=== PATIENT | female | born 1950 | race Caucasian/White ===

== ENCOUNTER 2020-01-24 15:30 | Outpatient (RCR) | payer MEDICARE, BC, SELFPAY ==
--- NOTE | 2019-12-27 15:06 | HP.PTEVAL ---
Patient's Visit Information ZANE CORDERO is a 69 year old F referred to Physical Therapy by Out of Town Doctor with a diagnosis of Cervical Radiculopathy. Date of Evaluation: 12/27/19 Physical Therapist: LEONCIO Bernabe - Visit Plan Frequency: 2x /Week Duration: 4 Weeks Plan: 2X/ week for 4 weeks for c-spine stretching, strengthening, postural exercises, L RC strengthening with HEP and modalities PRN (may need modalities first few visits to calm inflammation). HEP: mid rows with yellow t-band - Subjective Pt reports that her L arm was bothering her for a long time and her R was causing pain but no pain in the R now. L arm always hurts just depends on min, mod, severe pain. Reaching back to put on her seat belt increases her pain. She has pain and burning to where she points to mid trap and levator and says it is a burning sensation and sometimes it goes into a REZA. She is very careful with her L arm. She has just had an x-ray. 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 She has some tingling in her hand... Usually her pain stops at the elbow. She saw an orthopedic Dr. He said to do PT for 4 weeks and then MRI. She feels weakness in her L arm. She is R handed. - Pain L shoulder pain Pain Intensity (Out of 10): 4 Pain Intensity Range: 6 neck pain Pain Intensity (Out of 10): 3 Pain Intensity Range: 10 - Objective c-spine AROM: flex 100%, ext 75%, Rot B 75%, SB B 75%. UE AROM: pt has full B shoulder AROM but has painful arc on the L approx 120 degrees and then at end range flexion and abd. Her IR and ER AROM on the L is also WFL. R shoulder AROM WFL. Palpation: tender under the L acromion, mid trap and L levator. R handed: R 60# and L 50#. Bicep 2+/3 B. + HK test on the L for pain. + empty can test for pain and weakness on the L. L shld MMT: L shld flex 3-/4, abd 3+/5, ER 3+/5, and IR 4/5. R shld MMT: L shld flex and abd 4-/5, ER and IR 4/5. Posture: sits with rounded shhoulders and protracted scapula B - Goals Goal 1:: I HEP Goal Time Frame: 4-6 Weeks Goal 2:: Increase L shoulder AROM to full AROM into flex and abd with no pain Goal Time Frame: 4-6 Weeks Goal 3:: Sit with upright posture during treatment sessions Goal Time Frame: 4-6 Weeks Goal 4:: Increase L shoulder strength by 1/2 muscle grade on the L (at time of eval: L shld MMT: L shld flex 3-/4, abd 3+/5, ER 3+/5, and IR 4/5). Goal Time Frame: 4-6 Weeks Goal 5:: Increase c-spine AROM to 100% normal ROM (at time of eval: c-spine AROM: flex 100%, ext 75%, Rot B 75%, SB B 75%). Goal 6:: Decrease neck and shoulder pain L by 50% Goal Time Frame: 4-6 Weeks - Rehabilitation Potential Rehabilitation Potential: Good - Anticipated Interventions Patient/Client Instruction: Educate patient on: Condition, Plan of Care For the Purpose of:: To decrease pain, To decrease swelling/inflammation, To increase ROM, To improve nutrient delivery to tissue, To improve muscle performance and motor function, To improve ability to perform ADL's, To increase tolerance to activity/condition/position, To improve performance and independence with ADL's, To decrease level of supervision to perform tasks, To improve ability of physical actions for home/community/work/leisure, To improve health of tissue, To decrease soft tissue restriction Therapeutic Exercise to Include: Strength training, Postural training, Flexibilty training, Passive ROM, Active ROM, Scapular Strength/Stabilization For the Purpose of:: To decrease pain, To increase ROM, To improve nutrient delivery to tissue, To improve muscle performance and motor function, To improve ability to perform ADL's, To increase tolerance to activity/condition/position, To improve performance and independence with ADL's, To improve ability of physical actions for home/community/work/leisure, To improve health of tissue, To decrease soft tissue restriction, To improve endurance Manual Therapy Techniques to Include: Passive ROM, Soft tissue mobilization For the Purpose of:: To decrease pain, To increase ROM, To improve nutrient delivery to tissue IF ES: Yes Cryotherapy (ice pack, ice massage): Yes Thermo therapy (hot pack): Yes Ultrasound (thermal/non thermal): Yes For the Purpose of:: To decrease pain, To increase ROM, To improve nutrient delivery to tissue, To improve muscle performance and motor function, To improve ability to perform ADL's, To increase tolerance to activity/condition/position Thank you for the opportunity to evaluate your patient. For Medicare and Medicare HMO plans, please review the plan of care and approve it. It will need to be FAXED BACK to us at [phone] for Medicare purposes. For Medicare only, by signing this I certify the plan of care. Please let me know if there are questions or concerns regarding this plan of care. Physician Signature: Date:
--- NOTE | 2020-01-24 16:08 | HP.PTDCSUM ---
It has been my pleasure to treat ZANE CORDERO referred by MONICA SHULTZ, with the diagnosis of Cervical Radiculopathy for a total of 9 visit(s). Discharge Date: 01/24/20 Please see the following information for a summary of their discharge status. Subjective: Pt reports that she can not lift a 1/2 gallon of milk and it kills her shoulder. She sees the Dr this . She reports that she was awake every hour last night due to pain. Pain pills did not do anything. L shoulder pain Pain Intensity (Out of 10): 7 neck pain Pain Intensity (Out of 10): 0 L mid trap Pain Intensity (Out of 10): 5 % Improvement: 0 Objective/Function: L shoulder: flexion 80 degrees. Abd 75 degree. ER 55 (uncomfortable). IR PSIS. L shoulder MMT: Shld flexion 3-/5, Shld abd 3+/5, shld ER 3+/5 and IR 4/5. Pt sits with upright posture during treatment sessions. C-spine AROM: flexion 100%, SB B 75%, Rot R 100%, and Rot L 75%. + HK on the L shoulder for pain. + Empty can for pain and weakness on the L. Goal 1:: I HEP Goal Progress: Goal Met Goal 2:: Increase L shoulder AROM to full AROM into flex and abd with no pain Goal Progress: Not Progressing Goal 3:: Sit with upright posture during treatment sessions Goal Progress: Goal Met Goal 4:: Increase L shoulder strength by 1/2 muscle grade on the L (at time of eval: L shld MMT: L shld flex 3-/4, abd 3+/5, ER 3+/5, and IR 4/5). Goal Progress: Not Progressing Goal 5:: Increase c-spine AROM to 100% normal ROM (at time of eval: c-spine AROM: flex 100%, ext 75%, Rot B 75%, SB B 75%). Goal 6:: Decrease neck and shoulder pain L by 50% Goal Progress: Not Progressing Plan: DC PT back to physician for reassessment Discharge Comments: DC PT back to referring Dr If there are questions or concerns regarding this patient's physical therapy, please feel free to call me at [phone]. Thank you for the referral of this patient. Sincerely, Claire Dumont, MPT
== END 2020-01-24 19:00 | disposition home or self-care (01) ==
LOC: PT 15:30
PROVIDERS: PCP Family Medicine
DX: M54.12 Radiculopathy, cervical region (principal)
CPT/HCPCS: 97035; 97110; 97140; 97161; 97530

== ENCOUNTER → 2022-12-20 | Outpatient (CLI) | payer MEDICARE, BC, SELFPAY ==
[2022-12-20 15:18] LABS: Basophil# 0.05 X10^3/uL; Eosinophil# 0.17 X10^3/uL; Eosinophils% 3.3 % (0-5); Hematocrit 42.2 % (37-47); Hemoglobin 12.8 g/dL (12.0-15.0); Lymphocyte % 28.9 % (19-41); Mean Corp Hgb Conc 30.3 g/dL (32-36); Mean Corpuscular Hgb 27.3 pg (27.0-32.0); Mean Platelet Vol. 12.4 fl (6.2-12.0); Monocyte# 0.43 X10^3/uL; Monocyte% 8.3 % (0-10); NRBC Flagged by Analyzer 0 % (0-5); Neutrophil # 3.02 X10^3/uL (2.7-7.7); Neutrophil % 58.1 % (47-70); Platelet Count 173 K/mm3 (150-450); RBC Distribution Width CV 13.6 % (11.6-14.6); RBC Distribution Width SD 44.8 fl (35.1-43.9); Red Blood Count 4.69 M/mm3 (4.2-5.4); White Blood Count 5.2 K/mm3 (4.4-11.0)
[2022-12-20 15:35] LABS: Vitamin D,25 Hydroxy 81.6 ng/mL
[2022-12-20 15:53] LABS: ALB/GLOB Ratio 0.8 RATIO (0.9-2.4); AST(SGOT) 15 U/L (15-37); Alanine Aminotransfer ALT/SGPT 21 U/L (13-56); Alkaline Phosphatase 72 U/L (45-117); Anion Gap 6 (5-15); BUN 10 mg/dL (7-18); BUN/Creat Ratio 13.2 RATIO (10-20); Calcium,Total 8.6 mg/dL (8.5-10.1); Chloride 105 mmol/L (98-107); Cholesterol 143 mg/dL (200); Creatinine, Serum 0.76 mg/dL (0.55-1.02); EST Glomerular Filtration Rate 79 mL/min (>60); Est Glom Filt Rate - Afr Amer 96 mL/min (>60); Globulin 3.7 g/dL (2.2-4.2); Glucose 92 mg/dL (74-106); High Density Lipoprotein 48 mg/dL; Protein, Total 6.7 g/dL (6.4-8.2); Sodium Level 139 mmol/L (136-145); Thyroid Stim Hormone (TSH) 3.02 uIU/mL (0.358-3.74); Triglycerides 99 mg/dL; Very Low Density Lipoprotein 20 mg/dL (5-40)
== END | disposition home or self-care (01) ==
PROVIDERS: PCP Family Medicine; Referring Provider Family Medicine; Visit Provider Family Medicine
DX: I10 Essential (primary) hypertension (principal); E78.00 Pure hypercholesterolemia, unspecified; R79.89 Other specified abnormal findings of blood chemistry
CPT/HCPCS: 36415; 80053; 80061; 82306; 84443; 85025

== ENCOUNTER → 2023-02-27 | Outpatient (CLI) | payer MEDICARE, BC, SELFPAY ==
--- OUTSIDE RECORDS SUMMARY | 2023-02-27 15:19 | XMS RPT_ITS | CCD ---
Author Name Unknown Address [address] [facility] [address] [place] [address] Organization [facility] Care Team Providers Care Canvas Worker Apprentice Name Role Phone PROVIDER, UNKNOWN Unavailable Unavailable Lai, David Unavailable Unavailable ISAC YANEZ Unavailable Unavailable Deng Medley Unavailable Unavailable PROVIDER, UNKNOWN Unavailable Unavailable Lai, David Unavailable Unavailable PROVIDER, UNKNOWN Unavailable Unavailable Lai, David Unavailable Unavailable Deng Medley Unavailable Unavailable Lai, David Attending Unavailable PROVIDER, UNKNOWN Referring Unavailable Lai, David Primary Care Unavailable Lai, David Attending Unavailable PROVIDER, UNKNOWN Referring Unavailable Lai, David Primary Care Unavailable Lai, David Ethan Primary Care Provider [phone] David Hoyt Primary Care Provider David Hoyt MD Primary Care Provider David Hoyt MD Primary Care Provider David Hoyt MD Primary Care Provider David Hoyt MD Primary Care Provider MATHEUS HOYTRELL Primary Care Unavailable LAI, DAVID Attending Unavailable LAI, DAVID Referring Unavailable LAI, DAVID Primary Care Unavailable LAI, DAVID Attending Unavailable LAI, DAVID Referring Unavailable LAI, DAVID Primary Care Unavailable LAI, DAVID Attending Unavailable LAI, DAVID Referring Unavailable LAI, DAVID Primary Care Unavailable LAI, DAVID Attending Unavailable LAI, DAVID Referring Unavailable LAI, DAVID Attending Unavailable LAI, DAVID Referring Unavailable LAI, DAVID Primary Care Unavailable LAI, DAVID Primary Care Unavailable LAI, DAVID Attending Unavailable JOSE EDUARDO BETHEA Attending Unavailable LAI, DAVID Primary Care Unavailable LAI, DAVID Primary Care Unavailable DAVID HOYT Attending Unavailable DAVID HOYT Referring Unavailable DAVID HOYT Primary Care Unavailable DAVID HOYT Attending Unavailable DAVID HOYT Referring Unavailable JOSE EDUARDO BETHEA Referring Unavailable DAVID HOYT Primary Care Unavailable DAVID HOYT Primary Care Unavailable MATHEUS HOYTRELL Attending Unavailable MATHEUS HOYTRELL Referring Unavailable Allergies Allergy Classification Reported Allergen(s) Allergy Type Date of Onset Reaction(s) Facility (20 sources) Erythromycin Drug Allergy 5 [facility]iting, Other [facility]: (9 sources) Penicillins Propensity to adverse reactions to drug 5 [facility] Work Phone: (8 sources) Adhesive Tape Propensity to adverse reactions to drug 0 [place], [place] (19 sources) Penicillins Drug Allergy 5 [facility] (19 sources) Wound Dressing Adhesive Drug Intolerance 0 [facility] Medications Current Medications Medication Drug Class(es) Dates Sig (Normalized) Sig (Original) acyclovir 400 mg oral tablet (1 source) Herpesvirus Nucleoside Analog DNA Polymerase Inhibitor, Herpes Simplex Virus Nucleoside Analog DNA Polymerase Inhibitor, Herpes Zoster Virus Nucleoside Analog DNA Polymerase Inhibitor Start: 12-22-2017 take 1 tablet by mouth twice daily as needed acyclovir (ZOVIRAX) 400 MG tablet Indications: pt takes PRN Take 1 tablet by mouth 2 times daily 21 tablet 1 12/22/2017 Active [id number] 200 actuat albuterol 0.09 mg/actuat metered dose inhaler (18 sources) beta2-Adrenergic Agonist Start: 04-30-2022 End: 04-30-2023 take 2 puff(s) by inhalation every four hours as needed for wheezing albuterol (Proventil HFA) 108 (90 Base) MCG/ACT inhaler Indications: Bronchitis Inhale 2 puffs every 4 hours as needed for wheezing or shortness of breath. 6.7 g 0 04/30/2022 04/30/2023 Active ALPRAZolam 0.25 mg disintegrating oral tablet (1 source) Benzodiazepine Start: 11-30-2019 ALPRAZolam (NIRAVAM) dissolvable tablet 0.25 mg calcium chloride 0.0014 meq/ml / potassium chloride 0.004 meq/ml / sodium chloride 0.103 meq/ml / sodium lactate 0.028 meq/ml injectable solution (1 source) Start: 11-30-2019 lactated ringers infusion dextromethorphan hydrobromide 2 mg/ml / guaiFENesin 20 mg/ml oral suspension (1 source) Uncompetitive B-uwtnoj-T-aspartat e Receptor Antagonist, Sigma-1 Agonist Start: 04-30-2022 End: 05-10-2022 guaiFENesin-dextrom ethorphan (Robitussin DM) 100-10 MG/5ML syrup Indications: Bronchitis Take 5 mL by mouth in the morning and 5 mL at noon and 5 mL in the evening and 5 mL before bedtime. Do all this for 10 days. 200 mL 0 04/30/2022 05/10/2022 Active 1 ml diphenhydrAMINE hydrochloride 50 mg/ml cartridge (1 source) Histamine-1 Receptor Antagonist Start: 11-30-2019 End: 11-30-2019 diphenhydrAMINE (BENADRYL) injection 12.5 mg ergocalciferol 1.25 mg oral capsule (20 sources) Provitamin D2 Compound Start: 01-31-2022 End: 02-04-2023 take 1 capsule by mouth every week ergocalciferol (Vitamin D2) 1.25 MG (02022 UT) capsule TAKE 1 CAPSULE BY MOUTH once a week 8 capsule 3 02/04/2023 Active Completed/Discontinued Medications Medication Drug Class(es) Dates Sig (Normalized) Sig (Original) acetaminophen 500 mg oral tablet (1 source) Start: 11-30-2019 End: 11-30-2019 acetaminophen (TYLENOL) tablet 1,000 mg Problems Active Problems Problem Classification Problem Date Documented Da te Episodic/Chronic Abdominal pain (2 sources) Right upper quadrant pain; Translations: [Right upper quadrant pain] Onset: 01-28-2018 Episodic Disorders of lipid metabolism (20 sources) Hyperlipidemia, unspecified; Translations: [Hyperlipidemia] Onset: 09-21-2014 09-21-2014 Chronic Esophageal disorders (20 sources) Gastro-esophageal reflux disease without esophagitis; Translations: [Gastroesophageal reflux disease] Onset: 09-21-2014 09-21-2014 Chronic Essential hypertension (20 sources) Essential (primary) hypertension; Translations: [Hypertensive disorder] Onset: 09-21-2014 09-21-2014 Chronic Mood disorders (20 sources) Depressive disorder; Translations: [Major depressive disorder, single episode, unspecified] Onset: 09-21-2014 09-21-2014 Chronic Nutritional deficiencies (20 sources) Vitamin D deficiency; Translations: [Vitamin D deficiency, unspecified] Onset: 11-01-2016 11-01-2016 Chronic Osteoarthritis (20 sources) Unspecified osteoarthritis, unspecified site; Translations: [Osteoarthritis] Onset: 09-21-2014 09-21-2014 Chronic Osteoporosis (2 sources) Age-related osteoporosis without current pathological fracture; Translations: [Age-related osteoporosis w/o current pathological fracture] Onset: 03-14-2017 Chronic Other and unspecified benign neoplasm (5 sources) Lipoma of right upper limb; Translations: [Lipoma of right upper extremity] Onset: 10-12-2019 10-12-2019 Other nervous system disorders (2 sources) Other chronic pain; Translations: [Other chronic pain] Onset: 04-30-2022 Chronic Other non-traumatic joint disorders (1 source) Shoulder pain; Translations: [Acute pain of left shoulder] Episodic Other nutritional; endocrine; and metabolic disorders (20 sources) Obese class I; Translations: [Obesity, unspecified] Onset: 09-09-2018 09-18-2018 Chronic Other nutritional; endocrine; and metabolic disorders (6 sources) Obese class I; Translations: [Obesity, Class I, BMI 30-34.9] Onset: 09-09-2018 09-18-2018 Peripheral and visceral atherosclerosis (20 sources) Peripheral vascular disease, unspecified; Translations: [Peripheral vascular disease, unspecified] Onset: 05-03-2021 05-03-2021 Chronic Residual codes; unclassified (20 sources) Obstructive sleep apnea syndrome; Translations: [Obstructive sleep apnea (adult) (pediatric)] Onset: 10-26-2018 01-21-2019 Chronic Residual codes; unclassified (1 source) Menopause present; Translations: [Asymptomatic menopausal state] Episodic Unclassified (1 source) Strain of left trapezius muscle; Translations: [Trapezius muscle strain, left, initial encounter] Unclassified (1 source) Low back pain, unspecified; Translations: [Low back pain, unspecified] Onset: 04-30-2022 Past or Other Problems Problem Classification Problem Date Documented Da te Episodic/Chronic Allergic reactions (4 sources) Allergy status to other antibiotic agents status; Translations: [Allergy status to penicillin] Onset: 03-14-2017 Episodic Cancer of breast (20 sources) Personal history of malignant neoplasm of breast; Translations: [History of malignant neoplasm of breast] Onset: 09-21-2014 09-21-2014 Episodic Cardiac dysrhythmias (20 sources) Palpitations; Translations: [Palpitations] Onset: 09-28-2020 Episodic Chronic obstructive pulmonary disease and bronchiectasis (3 sources) Bronchitis; Translations: [Bronchitis, not specified as acute or chronic] Onset: 04-30-2022 Episodic Diabetes mellitus without complication (20 sources) Prediabetes; Translations: [Prediabetes] Onset: 04-26-2020 04-26-2020 Episodic Immunizations and screening for infectious disease (3 sources) Patient encounter status; Translations: [Encounter for screening for other viral diseases] Onset: 06-12-2022 Episodic Mood disorders (20 sources) Major depressive disorder, single episode, unspecified; Translations: [Mood disorders] Onset: 12-18-2021 Resolved: 06-11-2022 12-18-2021 Nonmalignant breast conditions (20 sources) Pain of breast; Translations: [Mastodynia] Onset: 04-11-2021 04-11-2021 Episodic Nonspecific chest pain (20 sources) Atypical chest pain; Translations: [Other chest pain] Onset: 04-26-2020 04-26-2020 Episodic Other and unspecified benign neoplasm (20 sources) Lipoma of right upper limb; Translations: [Benign lipomatous neoplasm of skin and subcutaneous tissue of right arm] Onset: 10-12-2019 10-12-2019 Episodic Other connective tissue disease (2 sources) Pain in right lower leg; Translations: [Pain in right lower leg] Onset: 03-15-2017 Episodic Other connective tissue disease (20 sources) Muscle pain; Translations: [Myalgia, unspecified site] Onset: 10-18-2020 10-18-2020 Episodic Other connective tissue disease (20 sources) Paraparesis; Translations: [Other symptoms and signs involving the musculoskeletal system] Onset: 04-11-2021 04-11-2021 Episodic Other connective tissue disease (2 sources) Other symptoms and signs involving the musculoskeletal system; Translations: [Other symptoms and signs involving the musculoskeletal system] Onset: 11-25-2021 Episodic Other gastrointestinal disorders (20 sources) Diarrhea; Translations: [Diarrhea, unspecified] Onset: 09-28-2020 09-28-2020 Episodic Other screening for suspected conditions (not mental disorders or infectious disease) (9 sources) Encounter for screening mammogram for malignant neoplasm of breast; Translations: [Abnormal findings on diagnostic imaging of liver and biliary tract] Onset: 01-28-2018 Episodic Other skin disorders (20 sources) Generalized hyperhidrosis; Translations: [Generalized hyperhidrosis] Onset: 09-28-2020 09-28-2020 Episodic Phlebitis; thrombophlebitis and thromboembolism (2 sources) Personal history of other venous thrombosis and embolism; Translations: [Personal history of other venous thrombosis and embolism] Onset: 03-14-2017 Episodic Residual codes; unclassified (2 sources) Asymptomatic menopausal state; Translations: [Asymptomatic menopausal state] Onset: 06-12-2022 Episodic Screening or history of mental health and substance abuse (2 sources) Personal history of nicotine dependence; Translations: [Personal history of nicotine dependence] Onset: 03-14-2017 Episodic Spondylosis; intervertebral disc disorders; other back problems (1 source) Neck pain; Translations: [Neck pain] Episodic Unclassified (2 sources) Acquired absence of both cervix and uterus; Translations: [Acquired absence of both cervix and uterus] Onset: 03-14-2017 Episodic Unclassified (1 source) Low back pain, unspecified; Translations: [Low back pain, unspecified] Onset: 04-30-2022 Viral infection (19 sources) Disease caused by 2019-nCoV; Translations: [COVID-19] Onset: 09-28-2021 Resolved: 12-19-2021 12-19-2021 Episodic Results Test Name Value Interpretation Reference Range Facil ity Vital Signs Date Time Vital Sign Value Performing Clinician Cynthia jasso 06-20-2022 14:00-0400 Body height 167.6 cm David Hoyt MD Work Phone: [id number] 06-20-2022 14:00-0400 Body mass index (BMI) [Ratio] 33.41 kg/m2 David Hoyt MD Work Phone: [email or web address] 06-20-2022 14:00-0400 Body weight 93.89 kg David Hoyt MD Work Phone: [email or web address] 06-12-2022 10:01-0400 Body height 167.6 cm David Hoyt MD Work Phone: [email or web address] 06-12-2022 10:01-0400 Body mass index (BMI) [Ratio] 33.41 kg/m2 aDvid Hoyt MD Work Phone: [email or web address] 06-12-2022 10:01-0400 Body weight 93.89 kg David Hoyt MD Work Phone: [email or web address] 06-12-2022 10:01-0400 Diastolic blood pressure 84 mm[Hg] David Hoyt MD Work Phone: [email or web address] 06-12-2022 10:01-0400 Heart rate 66 /min David Hoyt MD Work Phone: [email or web address] 06-12-2022 10:01-0400 SaO2% (BldA) [Mass fraction] 94 % David Hoyt MD Work Phone: [email or web address] 06-12-2022 10:01-0400 Systolic blood pressure 128 mm[Hg] David Hoyt MD Work Phone: [facility] [employer] 11-30-2019 09:00-0400 Body Temperature 97.39 [degF] [facility] [place] 11-30-2019 09:00-0400 BP Diastolic 67 mm[Hg] [facility] , [place] 11-30-2019 09:00-0400 BP Systolic 118 mm[Hg] [facility] [place] 11-30-2019 09:00-0400 Pulse (Heart Rate) 65 /min [facility] 11-30-2019 09:00-0400 Pulse Oximetry 95 % [facility] , [place] 11-30-2019 09:00-0400 Respiratory Rate 18 /min [facility] 11-30-2019 06:40-0400 BMI (Body Mass Index) 32.45 kg/m2 [facility], [place] 11-30-2019 06:40-0400 Body weight 93.98 kg [facility] , [place] 11-30-2019 06:40-0400 Height 170.2 cm [facility] , [place] 11-24-2019 13:01-0400 BMI (Body Mass Index) 32.79 kg/m2 [facility], [place] 11-24-2019 13:01-0400 Body weight 94.97 kg [facility] , [place] 11-24-2019 13:01-0400 Height 170.2 cm [facility] , [place] 11-24-2019 12:58-0400 Body Temperature 97.59 [degF] [place], [place] 11-24-2019 12:58-0400 BP Diastolic 98 mm[Hg] [facility] , [place] 11-24-2019 12:58-0400 BP Systolic 175 mm[Hg] [facility] , [place] 11-24-2019 12:58-0400 Pulse (Heart Rate) 64 /min [place], [place] 11-24-2019 12:58-0400 Pulse Oximetry 97 % [place], [place] 11-24-2019 12:58-0400 Respiratory Rate 16 /min [place], [place] Encounters Encounter Date Encounter Type Care Provider Facility Start: 02-01-2023 Refill David Hoyt MD Work Phone: [facility] Start: 01-22-2023 Refill Mariemagalys roe RN TELE - CLINICAL REIMBURSEMENT SPECIALIST Work Phone: [facility] Start: 11-25-2022 Refill Marie Pawel roe RN TELE - CLINICAL REIMBURSEMENT SPECIALIST Work Phone: [facility] Start: 10-23-2022 Documentation procedure Nedra Montez PT [facility] Start: 10-23-2022 Refill Marie Armas thal RN TELE - CLINICAL REIMBURSEMENT SPECIALIST Work Phone: [facility] Start: 08-22-2022 End: 08-23-2022 ambulatory DAVID HOYT [facility] Start: 08-22-2022 End: 08-22-2022 Follow-up encounter David Hoyt MD Work Phone: [facility] Procedures Date Procedure Procedure Detail Performing Clinician Start: 06-20-2022 End: 06-20-2022 Screening digital breast tomosynthesis bi David Hoyt MD Work Phone: Start: 06-12-2022 Lipid 1996 panel - S risa or Plasma David Hoyt MD Work Phone: Start: 12-19-2021 Lipid 1996 panel - S risa or Plasma [facility] 3 Start: 05-09-2021 Us breast uni real t barbie with image limited David Hoyt MD Work Phone: Start: 05-09-2021 Diagnostic mammograp hy computer-aided detcj uni David Hoyt MD Work Phone: Start: 04-24-2021 Radex spine lumbosac ral minimum 4 views David Hoyt MD Work Phone: Start: 05-01-2020 Screening mammograph y bi 2-view breast inc cad David Hoyt Work Phone: Start: 05-01-2020 Mammography [facility] 3 Start: 02-07-2020 Mri any jt upper ext remity w/o contrast matrl Varinder Gonzalez Work Phone: Start: 11-30-2019 OPERATIVE REPORT 3m Sca nning Start: 11-24-2019 Basic metabolic pane l calcium total Keven Raudel [place]eropoli Work Phone: Start: 11-24-2019 Blood count complete automated Keven Raudel [place]oli Work Phone: Start: 11-24-2019 Ecg routine ecg w/le ast 12 lds w/i&r Keven Raudel Mukherjee Work Phone: Start: 05-06-2015 Colonoscopy David hewitt MD Work Phone: Plan of Treatment Date Care Activity Detail Author Start: 09-19-2028 DTaP/Tdap/Td vaccine (2 - Td or Tdap) DTaP/Tdap/Td vaccine (2 - Td or Tdap) [facility] Start: 09-19-2028 DTaP/Tdap/Td vaccine (2 - Td) DTaP/Tdap/Td vaccine (2 - Td) [facility] Work Phone: Start: 09-19-2028 DTaP/Tdap/Td Vaccine s (2 - Td or Tdap) DTaP/Tdap/Td Vaccines (2 - Td or Tdap) [facility] Start: 06-13-2027 Lipid panel Lipid Panel [facility] Start: 12-19-2026 Lipid panel Lipid Panel [facility] Start: 06-12-2025 Diabetes mellitus screening Diabetes Screening [facility] Start: 05-05-2025 Colon cancer screen colonoscopy Colon cancer screen colonoscopy [facility] Work Phone: Start: 05-05-2025 Screening for malign ant neoplasm of colon [facility] Start: 07-13-2023 Medicare Annual Well ness (AWV) Medicare Annual Wellness (AWV) [facility] Start: 06-21-2023 Screening for malign ant neoplasm of breast Mammogram [facility] Start: 06-17-2023 End: 06-17-2023 Patient encounter procedure [facility] Start: 12-18-2022 End: 12-18-2022 Patient encounter procedure [facility] Start: 12-12-2022 Depresssion Monitoring Depresssion M onitoring [facility] Start: 10-11-2022 COVID-19 Vaccine () COVID-19 Vaccine () [facility] Start: 10-11-2022 Influenza vaccination Influenza Vacc ine (#1) [facility] Start: 09-05-2022 End: 09-05-2022 ambulatory 09/05/2022 2:00 PM EDT Evaluation [facility] [address] [place] [address] Janae Riggins, PT [facility] Start: 09-02-2022 End: 09-02-2022 Follow-up encounter 09/02/2022 2:00 PM EDT Follow-Up [facility] [address] [place] [address] Claire Gallo, CLOUD ENGINEER [facility] Start: 08-29-2022 End: 08-29-2022 Follow-up encounter 08/29/2022 2:00 PM EDT Follow-Up [facility] [address] [place] [address] Perlita Olguin, PT [facility] Start: 08-26-2022 End: 08-26-2022 Follow-up encounter [facility] Start: 08-22-2022 End: 08-22-2022 Follow-up encounter 08/22/2022 2:00 PM EDT Follow-Up [facility] [address] [place] [address] Xavier Spivey PTA [facility] Start: 08-19-2022 End: 08-19-2022 Follow-up encounter [facility] Start: 08-15-2022 End: 08-15-2022 Follow-up encounter 08/15/2022 5:30 PM EDT Follow-Up [facility] [address] [place] [address] Xavier Spivey PTA [facility] Start: 08-08-2022 End: 08-08-2022 ambulatory [facility] Start: 08-05-2022 End: 08-05-2022 Follow-up encounter [facility] Start: 08-02-2022 End: 08-02-2022 Follow-up encounter [facility] Start: 07-30-2022 End: 07-30-2022 Follow-up encounter [facility] Start: 06-20-2022 End: 06-20-2022 Patient encounter procedure 06/20/2022 Appointment Radiology [facility] Start: 06-12-2022 End: 06-13-2023 25-hydroxyvitamin D3 [Mass/volume] in Serum or Plasma Vitamin D 25 hydroxy Lab Routine Vitamin D deficiency Expected: 06/12/2022 (Approximate), Expires: 06/13/2023 [facility] Immunizations Immunization Date Immunization Notes Care Provider Fa jassi 12-24-2021 Pfizer SARS-CoV-2 Vaccination David Hoyt MD Work Phone: [facility] 11-30-2021 Influenza, High-dose Seasonal, Quadrivalent, Preservative Free [address] 11-30-2021 influenza virus vacc ine, unspecified formulation Xavier Spivey [facility] 01-13-2021 zoster vaccine recombinant David Hoyt MD Work Phone: [facility] Work Phone: 12-09-2020 Influenza, High-dose , Quadv, 65 yrs +, IM (Fluzone) David Hoyt MD Work Phone: [facility] Work Phone: 12-09-2020 Pfizer SARS-CoV-[address] 08-17-2020 zoster vaccine recombinant David Hoyt MD Work Phone: [facility] Work Phone: 05-05-2020 Pfizer SARS-CoV-[address] 04-14-2020 Pfizer SARS-CoV-2 Vaccination David Hoyt MD Work Phone: [facility] 04-07-2020 COVID-19, Pfizer, PF , 30mcg/0.3mL David Hoyt [facility] Work Phone: 12-03-2019 Influenza, High-dose , Quadv, 65 yrs +, IM (Fluzone) [facility] [place] 11-11-2018 influenza, high dose seasonal, preservative-free [facility] 09-19-2018 tetanus toxoid, redu charlee diphtheria toxoid, and acellular pertussis vaccine, adsorbed [facility]: 10-28-2017 influenza, injectabl e, quadrivalent, preservative free [facility] 05-26-2017 pneumococcal polysaccharide vaccine, 23 valent [facility] Work Phone: 11-01-2016 influenza, high dose seasonal, preservative-free [facility] 02-19-2016 pneumococcal conjuga te vaccine, 13 valent [facility] 11-16-2015 influenza virus vacc ine, unspecified formulation [facility] 11-16-2015 influenza virus vacc ine, whole virus [address] 11-12-2013 influenza virus vacc ine, unspecified formulation [facility] Work Phone: 11-12-2013 influenza, seasonal, injectable [address] 2013 pneumococcal Conjuga te, unspecified formulation [facility] Work Phone: 2013 zoster vaccine, live [facility] Work Phone: Payers Date Payer Category Payer Unknown 2017 Unknown [id number] 2014 Medicare 2014 Medicare MEDICARE MEDICAR E PART A AND B xxxxxxxxxxx 2014-Present [phone] [place] [address] xxxxxxxxxxx [id number] 2014 Medicare [id number] 2014 Unknown BC[place] P PO xxxxxxxxx 2014-Present [address] [place] [address] xxxxxxxxx [id number] 1950 Unknown [id number] 1950 Unknown [id number] Social History Date Type Detail Facility Start: 01-21-2019 End: 12-19-2021 Tobacco smoking status [facility] Former smoker [facility] Work Phone: End: 02-18-1991 History of tobacco use Current smoker [facility] Work Phone: Start: 01-21-2019 End: 06-11-2022 Cigarettes smoked current (pack per day) - Reported [facility] Work Phone: Start: 01-21-2019 End: 11-24-2019 Alcohol intake Current non-drinker of alcohol (finding) [employer] Phone: Start: 1950 Sex Assigned At Not on file [facility] [place] Work Phone: End: 02-18-1991 History of tobacco use Cigarette Smoker [facility] [place] Start: 01-27-2020 End: 12-19-2021 Tobacco use and exposure Never used [facility] [place] Start: 01-27-2020 End: 07-10-2022 Alcohol intake Current drinker of alcohol (finding) [facility] [place] Start: 11-24-2019 Alcohol [facility] [place] [place] Start: 03-28-2021 End: 06-12-2022 Exposure to SARS-CoV-2 (event) Not sure [place], [place] Start: 10-18-2020 End: 12-18-2021 History SDOH Financial 5 [facility] Work Phone: Start: 10-18-2020 End: 12-18-2021 History SDOH Food Worry [facility] Start: 10-18-2020 End: 12-18-2021 History SDOH Transport [facility] Work Phone: Start: 06-11-2022 End: 07-10-2022 Tobacco use panel [facility] How hard is it for y ou to pay for the very basics like food, housing, medical care, and heating Not hard at all [facility] (I/We) worried wheth er (my/our) food would run out before (I/we) got money to buy more. Never true [facility] Start: 06-15-2022 Sexual orientation Heterosexual (asia garza) [facility] Goals Date Patient Goal Desired Activity /State Clinical Notes 05-27-2022 to 02-04-2023 Telephone Encounter - JAXON Duran CNP - 02/04/2023 2:50 PM ESTTelephone Encounter - JAXON Duran CNP - 02/04/2023 2:50 PM Roula Montez PT - 10/23/2022 8:15 AM EDT Note Date & Type Note Facility 02-04-2023 Telephone encounter Note Form atting of this note might be different from the original. Reviewed chart. Refill appropriate. RX sent. [facility] 02-04-2023 Miscellaneous Notes Formattin g of this note might be different from the original. Reviewed chart. Refill appropriate. RX sent. Prescription Request: Last medication check: 12/19/21 Last physical exam: 06/12/22 Next scheduled appointment: 06/17/23 Last date of refill on this medication 01/31/22 8 capsules 3 refills documented in this encounter [facility] 02-04-2023 Telephone encounter Note Form atting of this note might be different from the original. Prescription Request: Last medication check: 12/19/21 Last physical exam: 06/12/22 Next scheduled appointment: 06/17/23 Last date of refill on this medication 01/31/22 8 capsules 3 refills [facility] 01-22-2023 Telephone encounter Note Form atting of this note might be different from the original. Reviewed chart. Refill appropriate. RX sent. [facility] 01-22-2023 Miscellaneous Notes Formattin g of this note might be different from the original. Reviewed chart. Refill appropriate. RX sent. Prescription Request: Last medication check: 12/19/21 Last physical exam: 06/12/22 Next scheduled appointment: 06/17/23 Last date of refill on this medication 07/29/22 documented in this encounter [facility] 01-22-2023 Telephone encounter Note Form atting of this note might be different from the original. Prescription Request: Last medication check: 12/19/21 Last physical exam: 06/12/22 Next scheduled appointment: 06/17/23 Last date of refill on this medication 07/29/22 [facility] 11-25-2022 Telephone encounter Note Form atting of this note might be different from the original. Rx sent. Follow up as scheduled. [facility] 11-25-2022 Miscellaneous Notes Formattin g of this note might be different from the original. Rx sent. Follow up as scheduled. Prescription Request: Last medication check: 12/19/21 Last physical exam: 06/12/22 Next scheduled appointment: 12/18/22 Last date of refill on this medication 09/30/22 documented in this encounter [facility] 11-25-2022 Telephone encounter Note Form atting of this note might be different from the original. Prescription Request: Last medication check: 12/19/21 Last physical exam: 06/12/22 Next scheduled appointment: 12/18/22 Last date of refill on this medication 09/30/22 [facility] 10-24-2022 Telephone encounter Note Form atting of this note might be different from the original. Reviewed chart. Refill appropriate. Rx sent. [facility] 10-24-2022 Miscellaneous Notes Formattin g of this note might be different from the original. Reviewed chart. Refill appropriate. Rx sent. Prescription Request: Last medication check: 12/19/21 Last physical exam: 06/12/22 Next scheduled appointment: 12/18/22 Last date of refill on this medication 07/29/22 documented in this encounter [facility] 10-24-2022 Telephone encounter Note Form atting of this note might be different from the original. Prescription Request: Last medication check: 12/19/21 Last physical exam: 06/12/22 Next scheduled appointment: 12/18/22 Last date of refill on this medication 07/29/22 [facility] 10-23-2022 History of Presen t illness Narrative Images from the original note were not included. [facility] AT [address] [id number] Discharge Notification Patient Name: Payton Tabares : 1950 Today's Date: 10/23/2022 Patient has not been seen since 08/22/22. Per policy, this patient will be discharged due to inactive file. Thank you for this referral. For any questions on this patient s course of therapy, please call the clinic for clarification. Nedra Montez, PT Signing for Perlita Olguin PT documented in this encounter [facility] 08-22-2022 History of Presen t illness Narrative Images from the original note were not included. [facility] AT [address] [address] Dept: [phone] Dept PHYSICAL THERAPY TREATMENT Patient Name: Payton Tabares : 1950 Date of Service: 08/22/2022 Referring Provider: David Hoyt, * Diagnosis: Weakness of both lower extremities Reason for referral/Mechanism of injury: Patient reports weakness in both legs that have gotten worse with time. She is having difficulty with getting up and down of the couch and is unable to get up from the floor, has to crawl over to something and use her arms to help her up. Also has to use her arms to help get up from the chair or toilet. Steps are also challenging, requires use of handrails and has to go one step at a time. Balance has also gotten worse over the time. No recent falls reported, however has had a close instant of almost falling. History of back pain as well. States just booked a camping trip and she will be away for 3 weeks tomorrow. Precautions/Red Flags: None Patient Preferences: none e Subjective Pt reports increased back pain that started yesterday, stating the back started spasming with no activity that induced pain. Pt attributes pain to the weather change . Pt reports 8/10 pain in the right thoracic back at this time. Compliance with HEP: Yes Objective Objective measurements not taken today. Treatment Therapeutic Activity # of Activities: 7 Therapeutic Activity 1: Functional strength Activity 1 Comment: STS 1x10 (min. A eccentric focus), (ELECTRICIAN BUS) 4 box step ups with no UE 2x10 leonila; mini squats at rails no UE 2x10 Therapeutic Activity 2: Airex Beam Activity 2 Comment: 3 12 hurdles tandem gait FTS to no UE CGA x4 laps Therapeutic Activity 4: NuStep Activity 4 Comment: lvl 2 UE/LE x5 min Therapeutic Activity 5: Core stability Activity 5 Comment: CC (ELECTRICIAN BUS): rows #25 2x10, SAPD #25 2x10, Seated palloff press YMB x15; seated palloff circles x10 ea YMB Soft Tissue Mobilization Location: R thoracic paraspinals Body Position: Prone Comments: x10 min Assessment Skilled physical therapy interventions utilized to improve patient s impairments and work towards established goals. Patient response to treatment: Pt tolerated session well. Initiated seated core activity at this time with good tolerance. Pt is progressing with balance via performing Airex beam with carey activity with good tolerance and required faded use of UE support with 1UE to FTS at this time. Also initiated STM to the right thoracic paraspinals with noted ST restrictions at this time time. Pt also performed mini-squats afterwards, with min. Verbal and visual cuing for correct form at this time. Pt reports 5/10 pain post-session. Patient will benefit from continued physical therapy to progress towards PT goals. The rationale for today s treatment was explained to the patient. Verbal cues were provided for correct form with all exercises. Advised patient to continue with Home Exercise Program (HEP). Goals General/Ortho Patient will be independent with HEP. (Progressing) Start: 07/10/22 Expected End: 09/18/22 Patient will report decreased max pain at 5/10 in lower back to be able to improve tolerance to transfers. (Progressing) Start: 07/10/22 Expected End: 09/18/22 Patient will increase strength in bilateral hips to 4+/5 or > to be able to improve independence with stairs and transfers. (Progressing) Start: 07/10/22 Expected End: 09/18/22 Balance: Patient will improve SLS to to >5 sec to decrease fall risk. (Progressing) Start: 07/10/22 Expected End: 09/18/22 Functional Outcome Measure: Patient will improve LEFS to 40 or >. (Progressing) Start: 07/10/22 Expected End: 09/18/22 Plan Plan for next session: Progress core and functional balance stability as tolerated. Assess back muscle spasm and pain next visit. MT prn. Time Entry Total Treatment Time Start Time: 1401 Stop Time: 1430 Time Calculation (min): 29 min PT Therapeutic Procedures Time Entry Therapeutic Activity Time Entry: 17 Manual Therapy Time Entry: Xavier Spivey PTA documented in this encounter [facility] 08-15-2022 History of Presen t illness Narrative Images from the original note were not included. [facility] [place] [facility] AT [place] [address] [place] [address] Dept: [phone] Dept PHYSICAL THERAPY TREATMENT Patient Name: Payton Tabares : 1950 Date of Service: 08/15/2022 Referring Provider: David Hoyt, * Diagnosis: Weakness of both lower extremities Reason for referral/Mechanism of injury: Patient reports weakness in both legs that have gotten worse with time. She is having difficulty with getting up and down of the couch and is unable to get up from the floor, has to crawl over to something and use her arms to help her up. Also has to use her arms to help get up from the chair or toilet. Steps are also challenging, requires use of handrails and has to go one step at a time. Balance has also gotten worse over the time. No recent falls reported, however has had a close instant of almost falling. History of back pain as well. States just booked a camping trip and she will be away for 3 weeks tomorrow. Precautions/Red Flags: None Patient Preferences: none Subjective Pt denies pain prior to session. Pt states that she is having the most trouble with STS d/t knee pain. Compliance with HEP: Yes Objective Objective measurements not taken today. Treatment Therapeutic Exercise Therapeutic Exercise Activity 2: NuStep Activity 2 Comment: lvl 3 UE/LE x5 min Therapeutic Exercise Acitivity 3: Core strength Activity 3 Comment: CC: rows #25 2x10, SAPD #25 2x10, (ELECTRICIAN BUS)palloff press #20 x15 ea Therapeutic Activity Therapeutic Activity 1: Functional strength Activity 1 Comment: STS 1x10 (min. A eccentric focus), 4 box step ups with no UE 2x10 leonila Therapeutic Activity 3: Hurdles Activity 3 Comment: Fwd 3x 8 hurdles reiprocal pattern 5 laps, lateral 1x 8 carey x10 reps; 3 12 hurdles x4 laps reciprocal gait no UE Assessment Skilled physical therapy interventions utilized to improve patient s impairments and work towards established goals. Patient response to treatment: Pt tolerated session well and is progressing via increasing carey height with excellent tolerance. Pt demos good SL stability at this time, but demos decreased quad strength for STS at this time. Patient will benefit from continued physical therapy to progress towards PT Goals. The rationale for today s treatment was explained to the patient. Verbal cues were provided for correct form with all exercises. Advised patient to continue with Home Exercise Program (HEP). Goals General/Ortho Patient will be independent with HEP. (Progressing) Start: 07/10/22 Expected End: 09/18/22 Patient will report decreased max pain at 5/10 in lower back to be able to improve tolerance to transfers. (Progressing) Start: 07/10/22 Expected End: 09/18/22 Patient will increase strength in bilateral hips to 4+/5 or > to be able to improve independence with stairs and transfers. (Progressing) Start: 07/10/22 Expected End: 09/18/22 Balance: Patient will improve SLS to to >5 sec to decrease fall risk. (Progressing) Start: 07/10/22 Expected End: 09/18/22 Functional Outcome Measure: Patient will improve LEFS to 40 or >. (Progressing) Start: 07/10/22 Expected End: 09/18/22 Plan Plan for next session: Progress functional balance as tolerated. Time Entry Total Treatment Time Start Time: 1732 Stop Time: 1758 Time Calculation (min): 26 min PT Therapeutic Procedures Time Entry Therapeutic Exercise Time Entry: 10 Therapeutic Activity Time Entry: 15 Xavier Spivey PTA documented in this encounter [facility] 08-08-2022 History of Presen t illness Narrative [facility] [place] [facility] AT [facility] [address] [place] [address] Dept: [phone] Dept PHYSICAL THERAPY RE-EVALUATION Patient Name: Payton Tabares : 1950 Date of Service: 08/08/2022 Referring Provider: David Hoyt, * Diagnosis: Weakness of both lower extremities Reason for referral/Mechanism of injury: Patient reports weakness in both legs that have gotten worse with time. She is having difficulty with getting up and down of the couch and is unable to get up from the floor, has to crawl over to something and use her arms to help her up. Also has to use her arms to help get up from the chair or toilet. Steps are also challenging, requires use of handrails and has to go one step at a time. Balance has also gotten worse over the time. No recent falls reported, however has had a close instant of almost falling. History of back pain as well. States just booked a camping trip and she will be away for 3 weeks tomorrow. Precautions/Red Flags: None Patient Preferences: none Subjective General Comments: Patient reports she has noticed an improvement since starting therapy. It is now easier to get up and down from chairs and she is able to do the stairs 1 foot at a time vs 2 feet to a step. No new falls reported since starting therapy. Pain: Worst: 6-7/10 Outcome Measures LEFS: 41/80 Objective Lower Extremity Strength Right Left Hip Flexion 4/5 4+/5 Hip Abduction 4+/5 4+/5 Hip Extension 4/5 4/5 Hip External Rotation (ER) 5/5 5/5 Hip Internal Rotation (IR) 5/5 5/5 Multi-system balance testin time Dtc-vs-Gsfne (STS): 11.06 seconds - Use of UEs?: yes Balance L SLS: 2 sec (moderate sway) R SLS: 4 sec (moderate sway) Assessment Patient has attended 3 follow up visits since IE, due to being out of town for vacation. Upon reassessment today, she has made excellent progress towards her goals. LE strength has demonstrated good improvements with both MMT and functional goals being met. Still having balance deficiencies and pain in the lower back (however overall has improved since starting therapy). She would benefit from continued PT to address remaining deficits, fall risk and PT goals. Goals Active General/Ortho Patient will be independent with HEP. (Progressing) Start: 07/10/22 Expected End: 09/18/22 Patient will report decreased max pain at 5/10 in lower back to be able to improve tolerance to transfers. (Progressing) Start: 07/10/22 Expected End: 09/18/22 Patient will increase strength in bilateral hips to 4+/5 or > to be able to improve independence with stairs and transfers. (Progressing) Start: 07/10/22 Expected End: 09/18/22 Patient will increase 5x STS (w/ UE) to <12 sec to demo improved functional strength. (Completed) Start: 07/10/22 Expected End: 09/18/22 Resolved: 08/08/22 Balance: Patient will improve SLS to to >5 sec to decrease fall risk. (Not Progressing) Start: 07/10/22 Expected End: 09/18/22 Functional Outcome Measure: Patient will improve LEFS to 40 or >. (Progressing) Start: 07/10/22 Expected End: 09/18/22 Plan Frequency and Duration: 2/wk for 4 weeks Plan for next session: continue with emphasis on balance and core training Risks and benefits were discussed with the patient and/or family, and the patient and/or family participated with the plan of care and agrees. Treatment Therapeutic Activity # of Activities: 6 Therapeutic Activity 6: reassessment of subjective and objective goals, reviewed goals and POC Time Entry Total Treatment Time Start Time: 1405 Stop Time: 1425 Time Calculation (min): 20 min PT Therapeutic Procedures Time Entry Therapeutic Activity Time Entry: 20 Perlita Olguin PT documented in this encounter [facility] 08-05-2022 History of Presen t illness [facility]ative [facility] AT [address] [place] [address] Dept: [phone] Dept PHYSICAL THERAPY TREATMENT Patient Name: Payton Tabares : 1950 Date of Service: 08/05/2022 Referring Provider: David Hoyt, * Diagnosis: Weakness of both lower extremities Reason for referral/Mechanism of injury: Patient reports weakness in both legs that have gotten worse with time. She is having difficulty with getting up and down of the couch and is unable to get up from the floor, has to crawl over to something and use her arms to help her up. Also has to use her arms to help get up from the chair or toilet. Steps are also challenging, requires use of handrails and has to go one step at a time. Balance has also gotten worse over the time. No recent falls reported, however has had a close instant of almost falling. History of back pain as well. States just booked a camping trip and she will be away for 3 weeks tomorrow. Precautions/Red Flags: None Patient Preferences: none Subjective States she felt fine after last session, was not too sore. Just some back pain today, that she states worsens with weather change. Compliance with HEP: Yes Objective Objective measurements not taken today. Treatment Therapeutic Exercise Therapeutic Exercise Activity 2: NuStep Activity 2 Comment: lvl 3 UE/LE x5 min Therapeutic Exercise Acitivity 3: Core strength Activity 3 Comment: CC: rows #20 2x10, SAPD #20 2x10, palloff press #20 x15 ea Therapeutic Activity # of Activities: 3 Therapeutic Activity 1: Functional strength Activity 1 Comment: STS 2x10 from elevated plinth (no UE), 4 box step ups with no UE 1x10 leonila Therapeutic Activity 2: Balance Activity 2 Comment: Airex tandem 1x30 EO leonila; toe taps to 2nd stair on airex 30 x2 Therapeutic Activity 3: Hurdles Activity 3 Comment: Fwd 3x 8 hurdles reiprocal pattern 5 laps, lateral 1x 8 carey x10 reps Assessment Skilled physical therapy interventions utilized to improve patient s impairments and work towards established goals. Patient response to treatment: good tolerance. Able to negotiate hurdles without any UE assist this visit and only mild instability. Challenged with airex balancing due to instability. Progressing well overall demonstrating improved endurance and tolerance to physical activity. Reduced back pain reported at end of session. Patient will benefit from continued physical therapy to address weakness and fall risk. The rationale for today s treatment was explained to the patient. Verbal cues were provided for correct form with all exercises. Advised patient to continue with Home Exercise Program (HEP). Goals General/Ortho Patient will be independent with HEP. (Progressing) Start: 07/10/22 Expected End: 09/18/22 Patient will report decreased max pain at 5/10 in lower back to be able to improve tolerance to transfers. (Progressing) Start: 07/10/22 Expected End: 09/18/22 Patient will increase strength in bilateral hips to 4+/5 or > to be able to improve independence with stairs and transfers. (Progressing) Start: 07/10/22 Expected End: 09/18/22 Patient will increase 5x STS (w/ UE) to <12 sec to demo improved functional strength. (Progressing) Start: 07/10/22 Expected End: 09/18/22 Balance: Patient will improve SLS to to >5 sec to decrease fall risk. (Progressing) Start: 07/10/22 Expected End: 09/18/22 Functional Outcome Measure: Patient will improve LEFS to 40 or >. (Progressing) Start: 07/10/22 Expected End: 09/18/22 Plan Plan for next session: add wobble board balance & progress carey height Time Entry Total Treatment Time Start Time: 1335 Stop Time: 1405 Time Calculation (min): 30 min PT Therapeutic Procedures Time Entry Therapeutic Exercise Time Entry: 15 Therapeutic Activity Time Entry: 15 Perlita Olguin PT documented in this encounter [facility] 08-02-2022 History of Presen t illness Narrative [facility] [place] [facility] AT [place] [address] [place] [address] Dept: [phone] Dept PHYSICAL THERAPY TREATMENT Patient Name: Payton Tabares : 1950 Date of Service: 08/02/2022 Referring Provider: David Hoyt, * Diagnosis: Weakness of both lower extremities Reason for referral/Mechanism of injury: Patient reports weakness in both legs that have gotten worse with time. She is having difficulty with getting up and down of the couch and is unable to get up from the floor, has to crawl over to something and use her arms to help her up. Also has to use her arms to help get up from the chair or toilet. Steps are also challenging, requires use of handrails and has to go one step at a time. Balance has also gotten worse over the time. No recent falls reported, however has had a close instant of almost falling. History of back pain as well. States just booked a camping trip and she will be away for 3 weeks tomorrow. Precautions/Red Flags: None Patient Preferences: none Subjective States she felt good after last session, not too sore. Was not able to do much of her HEP on her camping trip. Compliance with HEP: No Objective Objective measurements not taken today. Treatment Therapeutic Exercise Therapeutic Exercise Activity 2: NuStep Activity 2 Comment: lvl 3 UE/LE x5 min Therapeutic Exercise Acitivity 3: Core strength Activity 3 Comment: CC: rows #20 1x10, SAPD #20 1x10, palloff press #20 1x10 ea Therapeutic Activity # of Activities: 2 Therapeutic Activity 1: Functional strength Activity 1 Comment: STS 2x10 from elevated plinth (no UE), 4 box step ups with no UE 1x10 leonila Therapeutic Activity 2: Balance Activity 2 Comment: Firm surface tandem 2x30 1EO/1EC ea; toe taps to 2nd stair on airex 30 x2 Assessment Skilled physical therapy interventions utilized to improve patient s impairments and work towards established goals. Patient response to treatment: good tolerance. Modified STS to elevated plinth with improved performance and tolerance vs. Chair. Challenged with balance activities this visit, requiring CGA-min assist to maintain stability. Progressing well towards improved LE strength and stability. Discussed importance of performing HEP to help expedite progress in PT now that she is back from vacation. Patient will benefit from continued physical therapy to address weakness and fall risk. The rationale for today s treatment was explained to the patient. Verbal cues were provided for correct form with all exercises. Advised patient to continue with Home Exercise Program (HEP). Goals General/Ortho Patient will be independent with HEP. (Progressing) Start: 07/10/22 Expected End: 09/18/22 Patient will report decreased max pain at 5/10 in lower back to be able to improve tolerance to transfers. (Progressing) Start: 07/10/22 Expected End: 09/18/22 Patient will increase strength in bilateral hips to 4+/5 or > to be able to improve independence with stairs and transfers. (Progressing) Start: 07/10/22 Expected End: 09/18/22 Patient will increase 5x STS (w/ UE) to <12 sec to demo improved functional strength. (Progressing) Start: 07/10/22 Expected End: 09/18/22 Balance: Patient will improve SLS to to >5 sec to decrease fall risk. (Progressing) Start: 07/10/22 Expected End: 09/18/22 Functional Outcome Measure: Patient will improve LEFS to 40 or >. (Progressing) Start: 07/10/22 Expected End: 09/18/22 Plan Plan for next session: continue progressing LE strength and balance activities, add carey negotiation next visit Time Entry Total Treatment Time Start Time: 1301 Stop Time: 1331 Time Calculation (min): 30 min PT Therapeutic Procedures Time Entry Therapeutic Exercise Time Entry: 15 Therapeutic Activity Time Entry: 15 Perlita Olguin PT documented in this encounter [facility] 07-30-2022 History of Presen t illness Narrative Images from the original note were not included. [facility] [place] [facility] AT [place] [address] [place] [address] Dept: [phone] Dept PHYSICAL THERAPY TREATMENT Patient Name: Payton Tabares : 1950 Date of Service: 07/30/2022 Referring Provider: David Hoyt, * Diagnosis: Weakness of both lower extremities Reason for referral/Mechanism of injury: Patient reports weakness in both legs that have gotten worse with time. She is having difficulty with getting up and down of the couch and is unable to get up from the floor, has to crawl over to something and use her arms to help her up. Also has to use her arms to help get up from the chair or toilet. Steps are also challenging, requires use of handrails and has to go one step at a time. Balance has also gotten worse over the time. No recent falls reported, however has had a close instant of almost falling. History of back pain as well. States just booked a camping trip and she will be away for 3 weeks tomorrow. Precautions/Red Flags: None Patient Preferences: none Subjective Pt arrived to session 7 minutes late. Pt reports that she was not able to complete HEP as much as I should due to a medical emergency with my . Compliance with HEP: Yes Objective Objective measurements not taken today. Treatment Therapeutic Exercise # of Activities: 6 Therapeutic Exercise Activity 2: NuStep Activity 2 Comment: lvl 3 UE/LE x5 min Therapeutic Exercise Acitivity 3: LE strength Activity 3 Comment: STS 2x10 (4 reps without UE this visit); 4 box step ups with 1 UE 2x10 ea Therapeutic Exercise Activity 4: Balance Activity 4 Comment: Firm surface tandem 2x30 1EO/1EC ea; NBOS 2x30 1EO/1EC Therapeutic Exercise Activity 5: Core Activity 5 Comment: PPT 2x10; PPT april 2x10 Assessment Skilled physical therapy interventions utilized to improve patient s impairments and work towards established goals. Patient response to treatment: Pt tolerated first follow up session well and is progressing via performing LE strengthening and core stability activities with good tolerance. Min. Tactile and verbal cuing required for proper PPT at this time. Pt was also able to perform 4 STS without UE at this time. Patient will benefit from continued physical therapy to progress towards PT goals. The rationale for today s treatment was explained to the patient. Verbal cues were provided for correct form with all exercises. Advised patient to continue with Home Exercise Program (HEP). Goals General/Ortho Patient will be independent with HEP. (Progressing) Start: 07/10/22 Expected End: 09/18/22 Patient will report decreased max pain at 5/10 in lower back to be able to improve tolerance to transfers. (Progressing) Start: 07/10/22 Expected End: 09/18/22 Patient will increase strength in bilateral hips to 4+/5 or > to be able to improve independence with stairs and transfers. (Progressing) Start: 07/10/22 Expected End: 09/18/22 Patient will increase 5x STS (w/ UE) to <12 sec to demo improved functional strength. (Progressing) Start: 07/10/22 Expected End: 09/18/22 Balance: Patient will improve SLS to to >5 sec to decrease fall risk. (Progressing) Start: 07/10/22 Expected End: 09/18/22 Functional Outcome Measure: Patient will improve LEFS to 40 or >. (Progressing) Start: 07/10/22 Expected End: 09/18/22 Plan Plan for next session: Progress LE stability and strength as tolerated. Time Entry Total Treatment Time Start Time: 1537 Stop Time: 1600 Time Calculation (min): 23 min PT Therapeutic Procedures Time Entry Therapeutic Exercise Time Entry: Xavier Spivey PTA documented in this encounter [facility] 07-29-2022 Telephone encounter Note Form atting of this note might be different from the original. Reviewed chart. Refill appropriate. RX sent. [facility] 07-29-2022 Miscellaneous Notes Formattin g of this note might be different from the original. Reviewed chart. Refill appropriate. RX sent. Prescription Request: Last medication check: 12/19/21 Last physical exam: 06/12/22 Next scheduled appointment: 12/18/22 Last date of refill on this medication 01/31/22 30 day 5 refills documented in this encounter [facility] 07-29-2022 Telephone encounter Note Form atting of this note might be different from the original. Prescription Request: Last medication check: 12/19/21 Last physical exam: 06/12/22 Next scheduled appointment: 12/18/22 Last date of refill on this medication 01/31/22 30 day 5 refills [employer] [facility] 07-10-2022 History of Presen t illness Narrative [facility] [place] [facility] [place] [id number] [place] [address] Dept: [phone] Dept PHYSICAL THERAPY EVALUATION Patient Name: Payton Tabares : 1950 Date of Service: 07/10/2022 Referring Provider: David Hoyt, * Diagnosis: Weakness of both lower extremities General Information Reason for referral/Mechanism of injury: Patient reports weakness in both legs that have gotten worse with time. She is having difficulty with getting up and down of the couch and is unable to get up from the floor, has to crawl over to something and use her arms to help her up. Also has to use her arms to help get up from the chair or toilet. Steps are also challenging, requires use of handrails and has to go one step at a time. Balance has also gotten worse over the time. No recent falls reported, however has had a close instant of almost falling. History of back pain as well. States just booked a camping trip and she will be away for 3 weeks tomorrow. 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 She has no past medical history of Difficult intubation, PONV (postoperative nausea and vomiting), or Prolonged emergence from general anesthesia. PSHX: Payton has a past surgical history that includes Soft Tissue Tumor Resection (Right, 11/30/2019); Colonoscopy (2008); Breast reconstruction (Left, 2016); Colonoscopy; Mastectomy (Left, 08/10/2007); [place] tooth extraction; Cataract extraction w/ intraocular lens implant (Bilateral); Hysterectomy (1989); Tonsillectomy; Oophorectomy (Right, 1989); and Breast reduction (Right, 2016). Have you experienced any anxiety, depression, thoughts of self-harm or suicidal thoughts?: No Physician follow-up appointment?: No Subjective Chief Complaint: leg weakness, decreased balance, mid-lower back pain (hx of compression fx of T12) Pain: Current: 2/10 Best: 1/10 Worst: 10/10 Symptoms Aggravated by: standing, walking, lifting Symptoms Relieved by: swimming, massage Prior Level of Function: reduced limitations Current Level of Function: limitations with transfers (stairs, up and down off the floor, couch, toilet), imbalance Patient s Stated Goal: to get up and down steps normally and be able to get up and down off the floor, help prevent falls Outcome Measures LEFS: Objective LE's & BALANCE Gait Assessment: normal gait mechanics, however bilateral LLE ER evident Stairs: ascend stairs in reciprocal pattern, can perform without UE use, step to step pattern with descend and handrail use Transfers: requires UE use for STS transfers Lower Extremity Strength Right Left Hip Flexion 3+/5 4-/5 Hip Abduction 4/5 4-/5 Hip Extension 3+/5 3+/5 Hip External Rotation (ER) 4+/5 4+/5 Hip Internal Rotation (IR) 5/5 5/5 Knee Extension 5/5 5/5 Knee Flexion 5/5 5/5 Ankle Dorsiflexion (DF) 5/5 5/5 Ankle Plantarflexion (PF) - Single Limb Heel Raise 01/04 01/04 Inversion 5/5 5/5 Eversion 5/5 5/5 Core Strength: fair Flexibility: WFL in bilateral hip flexors and external rotators Multi-system balance testin time [id number] (STS): 17.46 seconds - Use of UEs?: yes (unable to perform without UE use) Balance L SLS: 2 sec (moderate sway) R SLS: 4 sec (moderate sway) Assessment Payton Tabares is a 72 y.o. patient with chief complaint of with bilateral LE weakness and imbalance. Upon assessment she demonstrates bilateral weakness mostly in the hips and PF's. Impaired balance and stability with testing, indicating fall risk. Decreased functional mobility evident with both STS and stair transfers. She also presents with impaired endurance and fatigue with testing today. The patient would benefit from skilled physical therapy to address decreased strength, decreased endurance, impaired balance, pain, and impaired functional activities. Evaluation complexity is low secondary to: patient has 3 or more personal factors and/or comorbidities that will affect plan of care, therapy will be addressing 3 or more elements, and clinical presentation is stable. Body Systems Affected: musculoskeletal Rehab Potential: Good Learning Preferences: demonstration, explanation, performance, and printed materials Barriers to Rehab: age and comorbidities Goals General/Ortho Patient will be independent with HEP. (Initiated) Start: 07/10/22 Expected End: 09/18/22 Patient will report decreased max pain at 5/10 in lower back to be able to improve tolerance to transfers. (Initiated) Start: 07/10/22 Expected End: 09/18/22 Patient will increase strength in bilateral hips to 4+/5 or > to be able to improve independence with stairs and transfers. (Initiated) Start: 07/10/22 Expected End: 09/18/22 Patient will increase 5x STS (w/ UE) to <12 sec to demo improved functional strength. (Initiated) Start: 07/10/22 Expected End: 09/18/22 Balance: Patient will improve SLS to to >5 sec to decrease fall risk. (Initiated) Start: 07/10/22 Expected End: 09/18/22 Functional Outcome Measure: Patient will improve LEFS to 40 or >. (Initiated) Start: 07/10/22 Expected End: 09/18/22 Plan Frequency and Duration: 2/wk for 4-8 weeks Therapeutic Contents: home exercise program, manual therapy techniques, neuromuscular re-education, therapeutic activities, therapeutic exercise, and modalities as needed Plan for next session: Nu-step for warm up, review PPT & ensure proper performance, add PPT w/ LE april if able, initiate functional CKC strengthening (STS from chair w/ UE, fwd step ups on 4 ), balance training (airex NBOS, tandem) Risks and benefits were discussed with the patient and/or family, and the patient and/or family participated with the plan of care and agrees. Treatment Therapeutic Exercise # of Activities: 1 Therapeutic Exercise Activity 1: HEP: SL HR, std hip ext, PPT, bridges, s/l clam (RTB) Activity 1 Comment: provided, reviewed, and performed Time Entry Total Treatment Time Start Time: 1405 Stop Time: 1455 Time Calculation (min): 50 min PT Evaluation Time Entry PT Evaluation (Low) Time Entry: 30 PT Therapeutic Procedures Time Entry Therapeutic Exercise Time Entry: 10 Perlita Olguin, PT documented in this encounter [facility] 06-12-2022 Evaluation + Plan note Associ ated Problem(s): Hyperlipidemia Controlled, continue rosuvastatin 40 mg daily [facility] 06-12-2022 Evaluation + Plan note Associ ated Problem(s): Recurrent major depressive disorder, in full remission (HCC) Remission, continue Prozac 40 mg daily [facility] 06-12-2022 Miscellaneous Notes Associate d Problem(s): Hyperlipidemia Controlled, continue rosuvastatin 40 mg daily Associated Problem(s): Recurrent major depressive disorder, in full remission (HCC) Remission, continue Prozac 40 mg daily Associated Problem(s): Vitamin D deficiency Stable, continue vitamin D 50,000 units weekly Associated Problem(s): Prediabetes Stable, will recheck lab work today and she would like some information on diet and exercise for prediabetes Associated Problem(s): Hypertension Controlled, continue irbesartan 150 mg daily Associated Problem(s): Weakness of both lower extremities We will schedule patient for PT for strengthening and balance, she would prefer to go to [place] so we will set her up at the [facility] documented in this encounter [facility] 06-12-2022 Evaluation + Plan note Associ ated Problem(s): Vitamin D deficiency Stable, continue vitamin D 50,000 units weekly [facility] 06-12-2022 Evaluation + Plan note Associ ated Problem(s): Prediabetes Stable, will recheck lab work today and she would like some information on diet and exercise for prediabetes [facility] 06-12-2022 Evaluation + Plan note Associ ated Problem(s): Hypertension Controlled, continue irbesartan 150 mg daily [facility] 06-12-2022 Evaluation + Plan note Associ ated Problem(s): Weakness of both lower extremities We will schedule patient for PT for strengthening and balance, she would prefer to go to [place] so we will set her up at the [facility] 06-12-2022 History of Presen t illness Narrative Images from the original note were not included. [facility] [address] [place] [address] Visit type: Established Patient Reason for Visit: Medicare Annual Wellness Visit Subsequent, Blood Work, and Health Maintenance (DEXA-wants/COVID #4 had this, will bring card/Hep B vaccine-discuss with PCP/Hep C screen-wants) Assessment and Plan Problem List Items Addressed This Visit Nervous Weakness of both lower extremities We will schedule patient for PT for strengthening and balance, she would prefer to go to [place] so we will set her up at the [facility] Relevant Orders External referral to Physical Therapy Circulatory Hypertension Controlled, continue irbesartan 150 mg daily Endocrine/Metabolic Prediabetes Stable, will recheck lab work today and she would like some information on diet and exercise for prediabetes Relevant Orders Comprehensive metabolic panel Hemoglobin A1c Vitamin D deficiency Stable, continue vitamin D 50,000 units weekly Relevant Orders Vitamin D 25 hydroxy Other Recurrent major depressive disorder, in full remission (HCC) Remission, continue Prozac 40 mg daily Hyperlipidemia Controlled, continue rosuvastatin 40 mg daily Relevant Orders Lipid panel Other Visit Diagnoses Medicare annual wellness visit, subsequent - Primary Menopause Relevant Orders DEXA bone density peripheral Encounter for hepatitis C screening test for low risk patient Relevant Orders Hepatitis C antibody Follow up in about 6 months (around 12/13/2022). Subjective HPI Payton comes in today for her annual Medicare well visit, she currently really has no complaints, she was to be scheduled for her mammogram and that needs to be looked into there was some conflict about her schedule. She needs scheduled for a DEXA scan and she needs fasting lab work. I have reviewed and reconciled the medication list with the patient today. Current Outpatient Medications Medication Sig Dispense Refill albuterol (Proventil HFA) 108 (90 Base) MCG/ACT inhaler Inhale 2 puffs every 4 hours as needed for wheezing or shortness of breath. 6.7 g 0 ergocalciferol (Vitamin D2) 1.25 MG (87268 UT) capsule TAKE 1 CAPSULE BY MOUTH once a week 8 capsule 3 esomeprazole (NexIUM) [address] capsule TAKE 1 CAPSULE BY MOUTH EVERY MORNING before breakfast 30 capsule 5 famotidine (Pepcid) 40 MG tablet TAKE 1 TABLET BY MOUTH IN THE EVENING 30 tablet 1 FLUoxetine (PROzac) 40 MG capsule TAKE 1 CAPSULE BY MOUTH IN THE MORNING 90 capsule 0 irbesartan (Avapro) 150 MG tablet TAKE 1 TABLET BY MOUTH EVERY MORNING 30 tablet 5 rosuvastatin (Crestor) 40 MG tablet TAKE 1 TABLET BY MOUTH IN THE EVENING 30 tablet 1 Sodium Fluoride 5000 PPM 1.1 % paste Use to brush teeth THREE TIMES DAILY DIRECTED triamcinolone (Kenalog) 0.1 % cream Apply topically 2 times daily. No current facility-administered medications for this visit. There are no discontinued medications. List of current healthcare providers: Patient Care Team: David Hoyt MD as PCP - General Over the past 2 weeks, how often have you been bothered by any of the following problems? Trouble falling or staying asleep, or sleeping too much: Not at all Feeling tired or having little energy: Not at all Poor appetite or overeating: More than half the days Feeling bad about yourself - or that you are a failure or have let yourself or your family down: Not at all Trouble concentrating on things, such as reading the newspaper or watching television: Not at all Moving or speaking so slowly that other people could have noticed? Or the opposite - being so fidgety or restless that you have been moving around a lot more than usual.: Not at all Thoughts that you would be better off or hurting yourself in some way: Not at all Patient Health Questionnaire-9 Score: 2 The following health maintenance schedule was reviewed with the patient and provided in printed form in the after visit summary: Health Maintenance Topic Date Due Hepatitis B Vaccines (1 of 3 - 3-dose series) Never done Medicare Annual Wellness (AWV) Never done Bone Density Scan Never done Hepatitis C Screening Never done COVID-19 Vaccine (4 - Booster for Pfizer series) 02/18/2022 Depresssion Monitoring 12/12/2022 Colorectal Cancer Screening 05/05/2025 Lipid Panel 12/19/2026 DTaP/Tdap/Td Vaccines (2 - Td or Tdap) 09/19/2028 Influenza Vaccine Completed Pneumococcal Vaccine: 65+ Years Completed Zoster Vaccines Completed HIB Vaccines Aged Out IPV Vaccines Aged Out Hepatitis A Vaccines Aged Out Meningococcal Vaccine Aged Out Rotavirus Vaccines Aged Out HPV Vaccines Aged Out Orders Placed This Encounter Procedures DEXA bone density peripheral Standing Status: Future Standing Expiration Date: 06/12/2023 Lipid panel Standing Status: Future Number of Occurrences: 1 Standing Expiration Date: 06/12/2023 Comprehensive metabolic panel Standing Status: Future Number of Occurrences: 1 Standing Expiration Date: 06/12/2023 Hepatitis C antibody Standing Status: Future Number of Occurrences: 1 Standing Expiration Date: 06/12/2023 Vitamin D 25 hydroxy Standing Status: Future Number of Occurrences: 1 Standing Expiration Date: 06/13/2023 Hemoglobin A1c Standing Status: Future Number of Occurrences: 1 Standing Expiration Date: 06/13/2023 External referral to Physical Therapy Standing Status: Future Standing Expiration Date: 06/13/2023 Referral Priority: Routine Referral Type: Therapy Referral Reason: Eval and Treat Requested Specialty: Physical Therapy Number of Visits Requested: 1 Health Risk Assessment: General In general, how would you say your health is?: Fair In the past 7 days, have you experienced any of the following: New or Increased Pain, New or Increased Fatigue, Loneliness, Social Isolation, Stress or Anger?: (!) Yes Select all that apply: New or Increased Fatigue Do you get the social and emotional suppport you need?: Yes Interventions: Fatigue: Regular exercise recommended 3-5 times per week, 30-45 minutes per session Health Habits / Nutrition On average, how many days per week do you engage in moderate to strenous exercise (like a brisk walk)?: (!) 0 days On average, how man minutes do you engage in exercise at this level?: (!) 0 min Have you lost any weight without trying in the past 3 months? : No Have you seen the dentist within the past year?: Yes Interventions: Hearing / Vision Do you or your family notice any trouble with your hearing that hasn't been managed with hearing aids?: (!) Yes Do you have difficulty driving, watching TV, or doing any of your daily activities because of your eyesight?: No Have you had an eye exam within the past year?: Appointment is scheduled No results found. Interventions: Safety Do you have a working smoke detector?: Yes Do you have any tripping hazards - loose or unsecured carpets or rugs?: No Do you have any tripping hazards - clutter in doorways, halls, or stairs?: No Do you have either shower bars, grab bars, non-slip mats or non-slip surfaces in your shower or bathtub? : (!) No Do all your stairways have a railing or banister? : Yes Do you fasten your seatbelt when you are in a car?: Yes Interventions: ADL In the past 7 days, did you need help from others to perform any of the following everyday activities: Eating, dressing, grooming,bathing, toileting, or walking / balance? : No In the past 7 days, did you need help from others to take care of any of the following: laundry, housekeeping, banking / finances,shopping, telephone use, food preparation, transportation, or taking medications? : No Interventions: Living Will Do you have a living will?: Yes Interventions: Cognitive: Cognitive Screening: Mini-Cog Clock Drawing Test (CDT): 2 Words Recalled: 3 Total Score: 5 Total Score Interpretation: Normal Mini-Cog Interventions: Fall Risk: Interventions: No falls Depression Screening: Over the past 2 weeks, how often have you been bothered by any of the following problems? Little interest or pleasure in doing things: Not at all Feeling down, depressed, or hopeless: Not at all Patient Health Questionnaire-2 Score: 0 Over the past 2 weeks, how often have you been bothered by any of the following problems? Trouble falling or staying asleep, or sleeping too much: Not at all Feeling tired or having little energy: Not at all Poor appetite or overeating: More than half the days Feeling bad about yourself - or that you are a failure or have let yourself or your family down: Not at all Trouble concentrating on things, such as reading the newspaper or watching television: Not at all Moving or speaking so slowly that other people could have noticed? Or the opposite - being so fidgety or restless that you have been moving around a lot more than usual.: Not at all Thoughts that you would be better off or hurting yourself in some way: Not at all Patient Health Questionnaire-9 Score: 2 If you checked off any problems on this questionnaire so far, How difficult have these problems made it for you to do your work, take care of things at home, or get along with other people?: Somewhat difficult Interventions: Tobacco Use: Social History Tobacco Use Smoking Status Former Packs/day: 1.00 Types: Cigarettes Quit date: 02/18/1991 Years since quittin.3 Smokeless Tobacco Never Interventions: Alcohol Use: Interventions: Drug Use: Interventions: Review of Systems Constitutional: Negative for chills and fever. Respiratory: Negative for shortness of breath. Cardiovascular: Negative for chest pain and palpitations. Gastrointestinal: Negative for abdominal pain, blood in stool, constipation and diarrhea. Genitourinary: Negative for dysuria, frequency, hematuria and urgency. Neurological: Negative for weakness and numbness. Psychiatric/Behavioral: Negative for dysphoric mood. The patient is not nervous/anxious. Immunization History Administered Date(s) Administered Influenza Whole 11/16/2015 Influenza, High Dose Seasonal, Preservative Free 11/01/2016, 11/11/2018 Influenza, High-dose Seasonal, Quadrivalent, Preservative Free 12/03/2019, 12/09/2020, 11/30/2021 Influenza, Unspecified 11/12/2013, 11/16/2015 Influenza, injectable, quadrivalent, preservative free 10/28/2017 Influenza, seasonal, injectable 11/12/2013 Pfizer SARS-CoV-2 Vaccination 04/14/2020, 12/09/2020, 12/24/2021 Pneumococcal Conjugate PCV 13 02/19/2016 Pneumococcal Conjugate, Unspecified 2013 Pneumococcal Polysaccharide PPSV23 05/26/2017 Tdap 09/19/2018 Zoster, Recombinant 08/17/2020, 01/13/2021 Zoster, live 2013 Allergies Allergen Reactions Penicillins Hives Erythromycin Nausea And Vomiting and Other Wound Dressing Adhesive Rash Outpatient Medications Prior to Visit Medication Sig Dispense Refill albuterol (Proventil HFA) 108 (90 Base) MCG/ACT inhaler Inhale 2 puffs every 4 hours as needed for wheezing or shortness of breath. 6.7 g 0 ergocalciferol (Vitamin D2) 1.25 MG (06294 UT) capsule TAKE 1 CAPSULE BY MOUTH once a week 8 capsule 3 esomeprazole (NexIUM) [address] capsule TAKE 1 CAPSULE BY MOUTH EVERY MORNING before breakfast 30 capsule 5 famotidine (Pepcid) 40 MG tablet TAKE 1 TABLET BY MOUTH IN THE EVENING 30 tablet 1 FLUoxetine (PROzac) 40 MG capsule TAKE 1 CAPSULE BY MOUTH IN THE MORNING 90 capsule 0 irbesartan (Avapro) 150 MG tablet TAKE 1 TABLET BY MOUTH EVERY MORNING 30 tablet 5 rosuvastatin (Crestor) 40 MG tablet TAKE 1 TABLET BY MOUTH IN THE EVENING 30 tablet 1 Sodium Fluoride 5000 PPM 1.1 % paste Use to brush teeth THREE TIMES DAILY DIRECTED triamcinolone (Kenalog) 0.1 % cream Apply topically 2 times daily. No facility-administered medications prior to visit. Past Medical History: Diagnosis Date Anxiety Depression GERD (gastroesophageal reflux disease) H/O exercise stress test History of breast cancer 2007 Dr Moy, Dr Conner Hx of blood clots 1982, Left leg Hyperlipidemia Hypertension ELIZA on CPAP Osteoarthritis Osteoporosis Soft tissue mass NEAR THE RIGHT UPPER EXTREMITY ; SCHEDUL[facility] FOR THE SURGERY ON 11/[facility] Social History Socioeconomic History Marital status: Tobacco Use Smoking status: Former Packs/day: 1.00 Types: Cigarettes Quit date: 02/18/1991 Years since quittin.3 Smokeless tobacco: Never Substance and Sexual Activity Alcohol use: Yes Alcohol/week: 0.0 standard drinks Drug use: No Social History Narrative 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 [employer], Social Determinants of Health Financial Resource Strain: Low Risk Difficulty of Paying Living Expenses: Not hard at all Food Insecurity: No Food Insecurity Worried About Running Out of Food in the Last Year: Never true Ran Out of Food in the Last Year: Never true Transportation Needs: No Transportation Needs Lack of Transportation (Medical): No Lack of Transportation (Non-Medical): No Past Surgical History: Procedure Laterality Date BREAST RECONSTRUCTION Left 08/2016 CATARACT EXTRACTION W/ INTRAOCULAR LENS IMPLANT Bilateral COLONOSCOPY 2009 COLONOSCOPY HYSTERECTOMY 1990 Fibroids, still has left ovary MASTECTOMY Left 2008 SOFT TISSUE TUMOR RESECTION Right 11/30/2019 TONSILLECTOMY (HISTORICAL) and Adenoidectomy WISDOM TOOTH EXTRACTION Past Surgical History: Procedure Laterality Date BREAST RECONSTRUCTION Left 08/2016 CATARACT EXTRACTION W/ INTRAOCULAR LENS IMPLANT Bilateral COLONOSCOPY 2009 COLONOSCOPY HYSTERECTOMY 1990 Fibroids, still has left ovary MASTECTOMY Left 2008 SOFT TISSUE TUMOR RESECTION Right 11/30/2019 TONSILLECTOMY (HISTORICAL) and Adenoidectomy WISDOM TOOTH EXTRACTION Family History Problem Relation Name Age of Onset Stroke Mother No Known Problems Father Heart disease Mother Substance Abuse Brother alcohol Cancer Mother jaw bone, thinks maybe lung Cancer Brother skin Objective BP 128/84 Pulse 66 Ht 5' 6 (1.676 m) Wt 207 lb (93.9 kg) SpO2 94% BMI 33.41 kg/m Physical Exam Vitals and nursing note reviewed. Constitutional: General: She is not in acute distress. Appearance: Normal appearance. HENT: Head: Normocephalic. Right Ear: Tympanic membrane, ear canal and external ear normal. Left Ear: Tympanic membrane, ear canal and external ear normal. Mouth/Throat: Mouth: Mucous membranes are moist. Pharynx: Oropharynx is clear. Eyes: Extraocular Movements: Extraocular movements intact. Pupils: Pupils are equal, round, and reactive to light. Neck: Vascular: No carotid bruit. Cardiovascular: Rate and Rhythm: Normal rate and regular rhythm. Heart sounds: Normal heart sounds. No murmur heard. Pulmonary: Effort: Pulmonary effort is normal. Breath sounds: Normal breath sounds. Abdominal: General: Bowel sounds are normal. Palpations: Abdomen is soft. Musculoskeletal: General: Normal range of motion. Cervical back: Normal range of motion. Lymphadenopathy: Cervical: No cervical adenopathy. Skin: General: Skin is warm and dry. Neurological: General: No focal deficit present. Mental Status: She is alert and oriented to person, place, and time. Psychiatric: Mood and Affect: Mood normal. Data Reviewed Labs: Imaging/Testing: David Hoyt MD 06/12/2022 11:06 AM documented in this encounter [facility] 05-27-2022 Telephone encounter Note Form atting of this note might be different from the original. Reviewed chart. Refill appropriate. Rx sent. [facility] 05-27-2022 Miscellaneous Notes Formattin g of this note might be different from the original. Reviewed chart. Refill appropriate. Rx sent. Prescription Request: Last medication check: 12/19/21 Last physical exam: 10/18/20 Next scheduled appointment: none CSA on file (date): na Last urine drug screen: na Last date of refill on this medication 12/17/21 documented in this encounter [facility] 05-27-2022 Telephone encounter Note Form atting of this note might be different from the original. Prescription Request: Last medication check: 12/19/21 Last physical exam: 10/18/20 Next scheduled appointment: none CSA on file (date): na Last urine drug screen: na Last date of refill on this medication 12/17/21 [facility] documented in this encounter [facility] Work Phone: Evaluation note* Diagnosis Mastalgia Mastodynia Atherosclerosis of aorta (HCC) Atherosclerosis of aorta Peripheral vascular disease, unspecified (HCC) Peripheral vascular disease, unspecified documented in this encounter [facility] Work Phone: Evaluation note* Diagnosis Bronchitis Bronchitis, not specified as acute or chronic documented in this encounter [facility]* Diagnosis Medicare annual wellness visit, subsequent- Primary Weakness of both lower extremities Primary hypertension Unspecified essential hypertension Prediabetes Other abnormal glucose Vitamin D deficiency Recurrent major depressive disorder, in full remission (HCC) Pure hypercholesterolemia Menopause Symptomatic menopausal or female climacteric states Encounter for hepatitis C screening test for low risk patient documented in this encounter [facility]* Diagnosis Encounter for screening mammogram for malignant neoplasm of breast documented in this encounter [facility]* Diagnosis Weakness of both lower extremities documented in this encounter [facility]* Diagnosis Encounter for screening mammogram for malignant neoplasm of breast- Primary documented in this encounter [facility]* Diagnosis Weakness of both lower extremities- Primary documented in this encounter [facility]* Diagnosis Weakness of both lower extremities- Primary documented in this encounter [facility]* Diagnosis Weakness of both lower extremities- Primary [facility] Diagnosis Weakness of both lower extremities- Primary documented in this encounter [facility]* Diagnosis Weakness of both lower extremities- Primary documented in this encounter [facility]* Diagnosis Weakness of both lower extremities- Primary documented in this encounter [facility] Summary Purpose Family History No Family History Records FoundNo Family History Records FoundNo Family History Records FoundNo Family History Records FoundNo Family History Records FoundNo Family History Records FoundNo Family History Records FoundNo Family History Records Found Advance Directives No Advanced Directives Records FoundDocuments on File Type Date Recorded 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 Advance Directives and Living Will Power of Lime Supervisor Documents on File Type Date Recorded 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 ACP-Advance Directive ACP-Power of Lime Supervisor Latest Code Status on File Code Status Date Activated Date Inactivated Comments Full Code 11/30/2019 6:17 AM 11/30/2019 11:34 AM Documents on File Type Date Recorded 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 ACP-Advance Directive ACP-Power of Lime Supervisor Latest Code Status on File Code Status Date Activated Date Inactivated Comments Full Code 11/30/2019 6:17 AM 11/30/2019 11:34 AM Latest Code Status on File Code Status Date Activated Date Inactivated Comments Full Code 11/30/2019 6:17 AM Reason for Referral Status Reason Specialty Diagnoses / Procedures Referre d By Contact Referred To Contact Closed Radiology Diagnoses Acute pain of left shoulder Procedures MRI SHOULDER LEFT WO CONTRAST Varinder Gonzalez MD [address] [facility] [address] [place] [address] Status Reason Specialty Diagnoses / Procedures Referre d By Contact Referred To Contact Open Radiology Diagnoses Palpitation Procedures Cardiac event monitor David Hoyt MD [address] [place] [address] Specialty Diagnoses / Procedures Referred By Contac t Referred To Contact Radiology Diagnoses Mastalgia Procedures US Breast Limited Right David Hoyt MD [address] [place] [address] Referral ID Status Reason Start Date Expiration Date Visits Re quested Visits Authorized [id number] Open 05/09/2021 05/09/2022 1 1 Specialty Diagnoses / Procedures Referred By Contac t Referred To Contact Physical Therapy Diagnoses Weakness of both lower extremities Procedures [place] OFFICE/OUTPATIENT NEW HIGH MDM 60-74 MINUTES David Hoyt MD [address] [place] [address] Referral ID Status Reason Start Date Expiration Date Visits Requested Visits Authorized [id number] Authorized Eval and Treat 06/12/2022 12/09/2022 99 99 Scheduling Instructions [facility] Eval and treat for strength and balance Assessments Diagnosis Acute pain of left shoulder Diagnosis Neck pain Cervicalgia Trapezius muscle strain, left, initial encounter Discharge Instructions * Instructions* Juan Naranjo MD - 11/30/2019 DISCHARGE INSTRUCTIONS Thank you very much for allowing me to participate in your care, it is truly a privilege. Below please see discharge orders that will help you during your recovery. Please do not hesitate to call theoffice at [phone] for any questions. After hours, the same number will allow you to reach the on-call surgeon. ? Call the office to schedule your post-operative appointment with Dr. Naranjo or PA/ELECTRICIAN BUS for 2 weeks if not already scheduled. o (May need to be seen before 2 weeks if stitches and/or drains present) ? Change bandages daily or more frequently if needed. o Keep incisions clean with soap/ water daily. (Peroxide OK as well) o Cover incision(s) as needed. o Please remove the Steri-Strips 5 days after surgery. This includes any clear bandages and gauze placed in the navel, if applicable. o If you have skin glue this will come off on its own ? Diet: Regular ? General guidelines for activity: activity as tolerated o OK to shower in 24 hours ? Tylenol and Ibuprofen can be used for post-operative pain. Please take as directed/needed. ? Some discomfort, mild bruising, and swelling are not unusual; please call my office if you have any severe pain, hemorrhage, or high fever (over 101 F) ? Resume home medications as directed (see medication reconciliation sheet) ? Watch for signs of infection: Excessive warmth or bright redness around your incisions Leakage of bloody or cloudy fluid from you incisions Fever over 100.5 ? If you experience constipation o Increase your water intake. o Increase your activity; walking is best. o An over the counter stool softener or mild laxative may be necessary if you still have not had a bowel movement after several days. Please call the office at [phone] for any questions and too make your post op appointment if needed. Thank you again for allowing me to participate in your care, and get well soon! Juan Naranjo MD documented in this encounter* Instructions* Geovanna Vergara, MARIA C - 11/24/2019 PLEASE BE AWARE THAT VISITORS UNDER THE AGE OF 12 AND FOOD/DRINKS ARE NO LONGER PERMITTED IN THE SAME DAY SURGERY DEPARTMENT. IF YOU USE A CPAP MACHINE OR RESCUE INHALER AT HOME PLEASE BRING THESE ITEMS WITH YOU THE DAY OF SURGERY. MEDICATION INSTRUCTIONS PRIOR TO SURGERY PLEASE BRING PROVIDED LIST BACK WITH YOU THE DAY OF SURGERY WITH DATE/TIME LAST DOSE OF MEDICATIONSTAKEN. HOLD IRBESARTAN AM OF SURGERY. NO ALEVE 3 DAYS PRIOR TO SURGERY. NO IBUPROFEN 24 HOURS PRIOR TO SURGERY. ALL OTHER MEDICATIONS MAY BE TAKEN AFTER SURGERY. During pre-admission testing appointment, patient instructed on the following To arrive 2 hours prior to scheduled surgery Upon arrival, stop in registration past the main entrance and provide them with a photo id and a medical card if they have one After registration, come to the same day surgery department, stopping at the main desk They need to have made arrangements for a ride home following surgery and a phone number will need to be provided before going back to the operating room. If public transportation is being used, pt made aware that they need to have a responsible adult accompany them. They need to make arrangements for someone to stay with them after they get home from surgery. Leave all jewelry, contacts and valuables at home Wear loose comfortable clothing to go home in Which medications need to be held and taken prior to surgery Bring in the medication list provided for them and write in the date/time last dose was taken No food (including candy, gum and mints) the day of surgery They may have clear liquids ( water, black coffee/no liquid or powder creamer, clear tea, clear fruit juices/no pulp and carbonated beverages) up until 2 hours prior to surgery Do not drink alcohol, use recreational drugs or smoke/use nicotine products 24 hours prior to surgery. Encouraged to write down any questions they may have for the surgeon, anesthesiologist or any member of the surgical team, and to bring list of questions in with them During the pre-admission testing appointment, this nurse reviewed and provided patient with The taking care of yourself after surgery paper ERAS paper Smoking Cessation Assistance paper (if a positive smoker) Pamphlets for Billing information for anesthesia patients, Prescription Opioids and Pharmacy care Preparing for your surgical procedure pamphlet After visit Summary with medication list and medication instructions Prior to end of PAT appointment, pt acknowledged understanding of information and instructions provided in preparation of upcoming surgery. documented in this encounter History of Present Illness * Kaylie Tom RN - 11/30/2019 9:06 AM EDT Pt sitting up and taking po well * Kaylie Tom RN - 11/30/2019 8:48 AM EDT PATIENT RECEIVED FROM OR VIA CART TO PHASE II . ALERT SPONT RESP. WITH OUTPATIENT PHYSICAL THERAPIST ASSISTANT IN ATTENDANCE documented in this encounter Additional Source Comments INFORMATION SOURCE (unrecogn ized section and content) DATE CREATED AUTHOR AUTHOR'S ORGANIZ ATION 03/30/2018 [facility] DATE CREATED AUTHOR AUTHOR'S ORGANIZ ATION 09/09/2018 [facility] DATE CREATED AUTHOR AUTHOR'S ORGANIZ ATION 09/12/2018 [facility] DATE CREATED AUTHOR AUTHOR'S ORGANIZ ATION 05/20/2020 [facility] DATE CREATED AUTHOR AUTHOR'S ORGANIZ ATION 03/20/2021 [facility] DATE CREATED AUTHOR AUTHOR'S ORGANIZ ATION 05/24/2021 [facility] DATE CREATED AUTHOR AUTHOR'S ORGANIZ ATION 02/06/2023 [facility] Reason for Visit (unrecogniz ed section and content) Reason Comments Med Refill Reason Comments Medicare Annual Wellness Visit Subsequen t Blood Work Health Maintenance DEXA-wantsCOVID #4 h ad this, will bring cardHep B vaccine-discuss with PCPHep C screen-wants Specialty Diagnoses / Procedures Referred By Contalberto t Referred To Contact Physical Therapy Diagnoses Weakness of both lower extremities Procedures [place] OFFICE/OUTPATIENT [facility] MDM 60-74 MINUTES David Hoyt MD [address] [place] [address] [facility] [address] [place] [address] Referral ID Status Reason Start Date Expiration Date Visits Requested Visits Authorized [id number] Authorized Eval and Treat 06/12/2022 12/09/2022 99 99 Care Teams (unrecognized sec tion and content) Canvas Worker Apprentice Relationship Specialty Start Date End Date David Hoyt MD [address] [place], [place] [address] [address] PCP - General 02/22/16 Canvas Worker Apprentice Relationship Specialty Start Date End Date David Hoyt MD [address] [place], [place] [address] [address] PCP - General 07/11/18 Canvas Worker Apprentice Relationship Specialty Start Date End Date David Hoyt MD [address] [place], [place] [address], [place] [id number] PCP - General 07/11/18 Canvas Worker Apprentice Relationship Specialty Start Date End Date David Hoyt MD [address] [place], [place] [address], [place] [address] PCP - General 07/11/18 Canvas Worker Apprentice Relationship Specialty Start Date End Date David Hoyt MD [address] [place], [place] [address], [place] [id number] PCP - General 07/11/18 Canvas Worker Apprentice Relationship Specialty Start Date End Date David Hoyt MD [address] [place], [place] [address], [place] [address] PCP - General 07/11/18 Canvas Worker Apprentice Relationship Specialty Start Date End Date David Hoyt MD [address] [place], [place] [address], [place] [address] PCP - General 07/11/18 Canvas Worker Apprentice Relationship Specialty Start Date End Date David Hoyt MD [address] [place], [place] [address], [place] [address] PCP - General 07/11/18 Canvas Worker Apprentice Relationship Specialty Start Date End Date David Hoyt MD [address] [facility] [place] [address] PCP - General 07/11/18 Canvas Worker Apprentice Relationship Specialty Start Date End Date David Hoyt MD [address] [facility] [place] [address] PCP - General 07/11/18 Canvas Worker Apprentice Relationship Specialty Start Date End Date David Hoyt MD [address] [place] [address] PCP - General 07/11/18 Canvas Worker Apprentice Relationship Specialty Start Date End Date David Hoyt MD [address] [place] [address] PCP - General 07/11/18 Canvas Worker Apprentice Relationship Specialty Start Date End Date David Hoyt MD [address] [place] [address] [place] [address] PCP - General 07/11/18 Canvas Worker Apprentice Relationship Specialty Start Date End Date David Hoyt MD [address] [place] [address] [place] [address] PCP - General 07/11/18 Canvas Worker Apprentice Relationship Specialty Start Date End Date David Hoyt MD [address] [place] [address] [place] [address] PCP - General 07/11/18 Canvas Worker Apprentice Relationship Specialty Start Date End Date David Hoyt MD [address] [place] [address], [place] [address] PCP - General 07/11/18 FOR RECORDS PERTAINING TO PATIENTS WHO ARE OR HAVE BEEN ENROLLED IN A CHEMICAL DEPENDENCY/SUBSTANCEABUSE PROGRAM, SOME INFORMATION MAY BE OMITTED. This clinical summary was aggregated from multiple sources. Caution should be exercised in using it in the provision of clinical care. This summary normalizes information from multiple sources, and as a consequence, information in this document may materially change the coding, format and clinical context of patient data. In addition, data may be omitted in some cases. CLINICAL DECISIONS SHOULD BE BASED ON THE PRIMARY CLINICAL RECORDS. [employer] provides no warranty or guarantee of the accuracy or completeness of information in this document.
[2023-02-27 16:00] LABS: Absolute Lymphocyte Count 1.65 X10^3/uL (0.83-4.51); Absolute Neutrophil Count 3.3 X10^3/uL (2.0-7.7); Basophil# 0.06 X10^3/uL; Eosinophil# 0.15 X10^3/uL; Eosinophils% 2.6 % (0-5); Hemoglobin 13.4 g/dL (12.0-15.0); Lymphocyte # 1.65 X10^3/ul (0.83-4.51); Lymphocyte % 28.5 % (19-41); Mean Corp Hgb Conc 31.2 g/dL (32-36); Mean Corpuscular Hgb 27.7 pg (27.0-32.0); Mean Corpuscular Volume 88.8 fL (81-99); Mean Platelet Vol. 12.1 fl (6.2-12.0); Monocyte# 0.57 X10^3/uL; Monocyte% 9.9 % (0-10); NRBC Flagged by Analyzer 0 % (0-5); Neutrophil # 3.34 X10^3/uL (2.7-7.7); Neutrophil % 57.8 % (47-70); Platelet Count 186 K/mm3 (150-450); RBC Distribution Width CV 13.6 % (11.6-14.6); RBC Distribution Width SD 44.2 fl (35.1-43.9); Red Blood Count 4.84 M/mm3 (4.2-5.4); White Blood Count 5.8 K/mm3 (4.4-11.0)
[2023-02-27 16:06] LABS: Erythrocyte Sedimentation Rate 10 mm/hr (0-30)
[2023-02-27 16:59] LABS: ALB/GLOB Ratio 0.8 RATIO (0.9-2.4); AST(SGOT) 21 U/L (15-37); Alanine Aminotransfer ALT/SGPT 24 U/L (13-56); Albumin, Serum 3.3 g/dL (3.2-5.0); Alkaline Phosphatase 74 U/L (45-117); Amylase 42 U/L (25-115); Anion Gap 6 (5-15); BUN 13 mg/dL (7-18); BUN/Creat Ratio 15.5 RATIO (10-20); CRP < 2.90 mg/L (0.0-3.0); Calcium,Total 9.2 mg/dL (8.5-10.1); Chloride 107 mmol/L (98-107); Creatinine, Serum 0.84 mg/dL (0.55-1.02); EST Glomerular Filtration Rate 71 mL/min (>60); Est Glom Filt Rate - Afr Amer 85 mL/min (>60); Globulin 3.9 g/dL (2.2-4.2); Glucose 72 mg/dL (74-106); Lipase 34 U/L (13-75); Potassium 3.7 mmol/L (3.5-5.1); Protein, Total 7.2 g/dL (6.4-8.2); Sodium Level 140 mmol/L (136-145)
[2023-03-03 12:08] LABS: Anti-Centromere B Ab <0.2 AI (0.0-0.9); Anti-Chromatin 0.2 AI (0.0-0.9); Anti-Jo <0.2 AI (0.0-0.9); Anti-Scleroderma-70 AB <0.2 AI (0.0-0.9); Anti-dsDNA Ab 5 IU/mL (0-9); RNP Ab <0.2 AI (0.0-0.9); SJOGREN'S Anti-SS-A test < 0.2 AI (0.0-0.9); SJOGREN'S Anti-SS-B test < 0.2 AI (0.0-0.9); Smith Ab <0.2 AI (0.0-0.9)
[2023-03-04 14:09] LABS: Chromogranin A 496.2 ng/mL (0.0-101.8); Cytoplasmic Ab (C-ANCA) <1:20 titer (Neg:<1:20); Endomysial Antibody IgA Negative (Negative); Gastrin, Serum 425 pg/mL (0-115); IgG, Quant 996 mg/dL (586-1602); Immunoglobulin A 283 mg/dL (64-422); Immunoglobulin E 33 IU/mL (6-495); Immunoglobulin G, Subclass 1 433 mg/dL (248-810); Immunoglobulin G, Subclass 2 573 mg/dL (130-555); Immunoglobulin G, Subclass 3 47 mg/dL (15-102); Immunoglobulin G, Subclass 4 64 mg/dL (2-96); Immunoglobulin M 94 mg/dL (26-217); Perinuclear Ab (P-ANCA) <1:20 titer (Neg:<1:20); t-Transglutaminase IgA <2 U/mL (0-3)
== END | disposition home or self-care (01) ==
LOC: LAB 14:55
PROVIDERS: PCP Family Medicine; Referring Provider Internal Medicine Gastroenterology; Visit Provider Internal Medicine Gastroenterology
DX: K21.9 Gastro-esophageal reflux disease without esophagitis (principal); K31.84 Gastroparesis
CPT/HCPCS: 36415; 80053; 82150; 82784; 82785; 82787; 82941; 83516; 83690; 85025; 85652; 86140; 86225; 86235; 86255; 86256; 86316

== ENCOUNTER → 2023-03-11 | Outpatient (CLI) | payer MEDICARE, BC, SELFPAY ==
--- NOTE | 2023-03-11 12:49 | NM_ITS ---
CLINICAL: 73-year-old female with history of gastroesophageal reflux disease. SEMI-SOLID PHASE 99m Tc SULFUR COLLOID GASTRIC EMPTYING STUDY COMPARISON: None available FINDINGS: The patient was administered 1.0 mCi of 99m Tc sulfur colloid mixed with oatmeal and consumed per os. Image acquisitions in the anterior-posterior projections for a total of 60 minutes. There is prompt visualization of the stomach. There is no gastroesophageal reflux identified. The T ? raw data emptying was calculated to be 29.65 minutes, (Normal: 12-56 minutes). NM/Gastric Emptying Study IMPRESSION: 1. NORMAL 99m Tc sulfur colloid semi-solid phase (oatmeal) gastric emptying imaging examination. A. There is normal and preserved semi-solid phase gastric emptying compared to normal controls. (Oksana et al, J Nucl Med Tech 38: 186, 2010). Electronically Signed: Jair Chaudhry DO at 23:52 EST ,
== END | disposition home or self-care (01) ==
LOC: NM 12:45
PROVIDERS: PCP Family Medicine; Referring Provider Internal Medicine Gastroenterology; Visit Provider Internal Medicine Gastroenterology
DX: K21.9 Gastro-esophageal reflux disease without esophagitis (principal); K31.84 Gastroparesis
CPT/HCPCS: 78264; A9541

== ENCOUNTER 2023-04-10 05:32 | Day surgery (SDC) | payer MEDICARE, BC, SELFPAY ==
--- NOTE | 2023-04-10 06:40 | HP.PCM_ITS ---
History and Physical Date of Admission: 04/10/23 ZANE TABARES, is a 73 F who presents to the office today for Prior workup [facility]: ? EGD 03.26.18 for GERD and dysphagia pathology report: chronic inactive gastritis; gastric hyperplastic polyp. PCP OV 01.01.23 with history of GERD that has been controlled with omeprazole 40mg QD. Additional history of depression (fluoxetine, poorly controlled), HTN, HLD. *BGI Established 02.27.23 reports burning of stomach and esophagus what will cause dysphagia with severity; PCP changed omeprazole 40mg QAM and famotidine 40mg QHS. Avoids spicy foods and chocolate; admits to drinking a lot of pepsi. Rare alcohol intake, no cigarettes. ROS Const Constitutional: No anorexia, fatigue, fever(s), weight change or sleep problems Eyes Eyes: No change in vision ENT ENT: No abnormal hearing, difficulty swallowing, mouth lesions, tongue swelling or throat swelling Resp Respiratory: No cough or shortness of breath Cardio Cardiology: No chest pain at rest, chest pain with exertion, shortness of breath or dyspnea on exertion Gastro GI: No difficulty swallowing Genitourinary-Female: No difficulty urinating or burning urination Musc Musculoskeletal: No joint pain, joint swelling, muscle weakness or decreased muscle mass Skin Skin: No hair loss in leg, yellowing of the eye, itchy eyes, rash, skin ulcer or skin swelling Neuro Neurology: No abnormal hearing, abnormal movements, confusion, unsteady gait/balance or memory loss Psych Psychiatric: No anxiety, No confusion and No memory loss Endo Endocrine: No fatigue or weight change Aller/Imm Allergy/Immunologic: No itchy eyes, throat swelling or tongue swelling Ignacio/Lymp Hematologic/Lymphatic: No easy bleeding, easy bruising or enlarged lymph nodes Exam Const General: cooperative and comfortable Nutritional Appearance: average body habitus and well nourished HENMT Head: normal to inspection Ears: hearing grossly normal bilaterally Nose: external nose normal Face and sinus: normal facial exam Mouth: oral mucosae normal Throat: posterior oropharynx normal Eyes General: appearance normal, both eyes and all related structures Neck Neck: normal visual inspection Chest Chest palpation & inspection: normal inspection of the chest and normal palpation of entire chest wall Resp Effort & Inspection: normal respiratory effort Auscultation: Bilateral: Clear to Auscultation Cardio Palpation: normal PMI Rate: regular rate Rhythm: regular rhythm GI Inspection: normal to inspection Auscultation: normal bowel sounds Percussion: normal to percussion Palpation: no hepatosplenomegaly Skin General: no rashes or lesions noted Neuro General: patient alert Extrem General: normal to inspection Psych Affect: normal affect Assessment and Plan Assessment and Plan (1) Chronic GERD: Plan: Chronic gastroesophageal reflux disease. We will have her on H2 receptor bl ockers and PPI therapy as needed. (2) Chronic GERD: Status: Chronic Orders: Orders Gastric Emptying Study 02/27/23 K21.9 - Gastro-esophageal reflux disease without esophagitis, K31.84 - Gastroparesis CRP 02/27/23 K21.9 - Gastro-esophageal reflux disease without esophagitis Erythrocyte Sed Rate 02/27/23 K21.9 - Gastro-esophageal reflux disease without esophagitis Celiac Disease Profile 02/27/23 K21.9 - Gastro-esophageal reflux disease without esophagitis Comprehensive Metabolic Profil 02/27/23 K21.9 - Gastro-esophageal reflux disease without esophagitis CBC W/Diff, Automated 02/27/23 K21.9 - Gastro-esophageal reflux disease without esophagitis, K31.84 - Gastroparesis Immunoglobulins G/A/M/E 02/27/23 K21.9 - Gastro-esophageal reflux disease without esophagitis IgG Subclasses 02/27/23 K21.9 - Gastro-esophageal reflux disease without esophagitis Amylase 02/27/23 K21.9 - Gastro-esophageal reflux disease without esophagitis Lipase 02/27/23 K21.9 - Gastro-esophageal reflux disease without esophagitis Gastrin, Serum 02/27/23 K21.9 - Gastro-esophageal reflux disease without esophagitis DANG Comprehensive Panel 02/27/23 K21.9 - Gastro-esophageal reflux disease without esophagitis ANCA 02/27/23 K21.9 - Gastro-esophageal reflux disease without esophagitis I have examined the patient and the H&P has been reviewed. There are no clinical changes since date of exam.
[2023-04-10 07:00] VITALS: BP 138/78; BP 98/68; PULSE 71; RESP 18; TEMP 36.1; O2SAT 95
[2023-04-10 07:05] VITALS: BP 138/78; BP 92/62; PULSE 69; RESP 16; O2SAT 94
--- NOTE | 2023-04-10 07:06 | OP.EGD_ITS ---
Patient Name: Payton Catherine Procedure Date: 04/10/2023 6:30 AM Date of : 1950 Age: 73 Procedure: Upper GI endoscopy Indications: Heartburn Providers: Darshan Burks DO Referring MD: Tesfaye Gr Md Medicines: Monitored Anesthesia Care Patient Profile: This is a 73 year old female. Refer to note in patient chart for documentation of history and physical. Patient has symptoms of chronic heartburn. Complications: No immediate complications. Procedure: Pre-Anesthesia Assessment: - Prior to the procedure, a History and Physical was performed, and patient medications and allergies were reviewed. The patient is competent. The risks and benefits of the procedure and the sedation options and risks were discussed with the patient. All questions were answered and informed consent was obtained. Patient identification and proposed procedure were verified by the physician in the pre-procedure area. Mental Status Examination: alert and oriented. Respiratory Examination: clear to auscultation. CV Examination: normal. Prophylactic Antibiotics: The patient does not require prophylactic antibiotics. Prior Anticoagulants: The patient has taken no anticoagulant or antiplatelet agents. ASA Grade Assessment: II - A patient with mild systemic disease. After reviewing the risks and benefits, the patient was deemed in satisfactory condition to undergo the procedure. The anesthesia plan was to use monitored anesthesia care (MAC). Immediately prior to administration of medications, the patient was re-assessed for adequacy to receive sedatives. The heart rate, respiratory rate, oxygen saturations, blood pressure, adequacy of pulmonary ventilation, and response to care were monitored throughout the procedure. The physical status of the patient was re-assessed after the procedure. After obtaining informed consent, the endoscope was passed under direct vision. Throughout the procedure, the patient's blood pressure, pulse, and oxygen saturations were monitored continuously. The Endoscope was introduced through the mouth, and advanced to the second part of duodenum. The upper GI endoscopy was accomplished without difficulty. The patient tolerated the procedure well. Scope In: 6:48:42 AM Scope Out: 6:54:10 AM Total Procedure Duration Time 0 hours 5 minutes 28 seconds Findings: The examined esophagus was significantly tortuous. Abnormal motility was noted in the esophagus. The cricopharyngeus was normal. There are extra peristaltic waves in the esophageal body. The distal esophagus/lower esophageal sphincter is patulous. Tertiary peristaltic waves are noted. The THOMSON capsule with delivery system was introduced through the mouth and advanced into the esophagus, such that the THOMSON pH capsule was positioned 35 cm from the incisors, which was 6 cm proximal to the GE junction. Suction was applied to the well of the THOMSON pH capsule to suck in the adjacent mucosa of the esophagus using the external vacuum pump set at a minimum vacuum pressure of 550 mmHg for 30 seconds. The THOMSON pH capsule was then deployed by depressing the plunger on top of the handle to advance the locking pin into the mucosa, thereby attaching the capsule to the esophagus. The plunger was then rotated a quarter turn clockwise to release the capsule from the delivery system. The delivery system was then withdrawn. Endoscopy was utilized for probe placement and diagnostic evaluation. A medium-sized hiatal hernia was present. The exam of the stomach was otherwise normal. No gross lesions were noted in the duodenal bulb. Impression: - Tortuous esophagus. - Abnormal esophageal motility, suspicious for presbyesophagus. - Medium-sized hiatal hernia. - No gross lesions in the duodenal bulb. - The THOMSON pH capsule was positioned 35 cm from the incisors, which was 6 cm proximal to the GE junction. - No specimens collected. Recommendation: - Discharge patient to home. - Resume previous diet. - Continue present medications. Procedure Code(s): --- Professional --- 93596, Esophagogastroduodenoscopy, flexible, transoral; diagnostic, including collection of specimen(s) by brushing or washing, when performed (separate procedure) CPT copyright 2021 [employer]. All rights reserved. The codes documented in this report are preliminary and upon model builder review may be revised to meet current compliance requirements. Darshan Burks DO 04/10/2023 7:05:46 AM This report has been signed electronically. Number of Addenda: 0 Note Initiated On: 04/10/2023 6:30 AM
--- NOTE | 2023-04-10 07:07 | OP.CCLET_ITS ---
04/10/2023 Tsefaye Gr Md Re : Upper GI endoscopy procedure for Payton Catherine Dear Simón This procedure was performed on April 10, 2023. My impressions and recommendations are as follows: Impressions : - Tortuous esophagus. - Abnormal esophageal motility, suspicious for presbyesophagus. - Medium-sized hiatal hernia. - No gross lesions in the duodenal bulb. - The THOMSON pH capsule was positioned 35 cm from the incisors, which was 6 cm proximal to the GE junction. - No specimens collected. Recommendations : - Discharge patient to home. - Resume previous diet. - Continue present medications. My findings are described in the full procedure note, which is enclosed. If I can be of further assistance, please feel free to contact me at . Sincerely, Darshan Friend, 04/10/2023 7:05:46 AM This report has been signed electronically.
[2023-04-10 07:10] VITALS: BP 138/78; BP 97/65; PULSE 67; RESP 16; O2SAT 94
[2023-04-10 07:15] VITALS: BP 103/68; BP 138/78; PULSE 68; RESP 16; TEMP 36.2; O2SAT 94
--- OUTSIDE RECORDS SUMMARY | 2023-04-10 07:19 | XMS RPT_ITS | CCD ---
Author Name Unknown Address [address] [facility] [address] [place] [address] Organization [facility] Care Team Providers Care Dryerman/Woman Name Role Phone PROVIDER, UNKNOWN Unavailable Unavailable [...] Unavailable Lai, David Ethan Primary Care Provider David Hoyt Primary Care Provider David Hoyt [...] Drug Allergy 5 Nausea And Vomiting, Other [facility] Work Phone: (9 sources) Penicillins Propensity to adverse reactions to drug 5 [facility] Work Phone: (8 sources) Adhesive Tape Propensity to adverse reactions to drug 0 [place], [place] (19 sources) Penicillins Drug Allergy 5 [facility] (19 sources) Wound Dressing Adhesive Drug Intolerance 0 [facility] Medications Current Medications Medication Drug Class(es) Dates [...] times daily 21 tablet 1 12/22/2017 Active [id number] 200 actuat albuterol 0.09 mg/actuat metered dose [...] 20 mg/ml oral suspension (1 source) Uncompetitive U-okhgnl-L-aspartat e Receptor Antagonist, Sigma-1 Agonist Start: 04-30-2022 [...] every week ergocalciferol (Vitamin D2) 1.25 MG (06337 UT) capsule TAKE 1 CAPSULE BY MOUTH [...] 167.6 cm David Hoyt MD Work Phone: [employer] 06-20-2022 14:00-0400 Body mass index (BMI) [Ratio] 33.41 kg/m2 David Hoyt MD Work Phone: [employer] 06-20-2022 14:00-0400 Body weight 93.89 kg David Hoyt MD Work Phone: [employer] 06-12-2022 10:01-0400 Body height 167.6 cm David Hoyt MD Work Phone: [employer] 06-12-2022 10:01-0400 Body mass index (BMI) [Ratio] 33.41 kg/m2 David Hoyt MD Work Phone: [employer] 06-12-2022 10:01-0400 Body weight 93.89 kg David Hoyt MD Work Phone: [employer] 06-12-2022 10:01-0400 Diastolic blood pressure 84 mm[Hg] David Hoyt MD Work Phone: [employer] 06-12-2022 10:01-0400 Heart rate 66 /min David Hoyt MD Work Phone: [employer] 06-12-2022 10:01-0400 SaO2% (BldA) [Mass fraction] 94 % David Hoyt MD Work Phone: [employer] 06-12-2022 10:01-0400 Systolic blood pressure 128 mm[Hg] David Hoyt MD Work Phone: [facility] 11-30-2019 09:00-0400 Body Temperature 97.39 [degF] [place] [facility] [place] 11-30-2019 09:00-0400 BP Diastolic 67 mm[Hg] [facility] , [place] 11-30-2019 09:00-0400 BP Systolic 118 mm[Hg] [facility] , [place] 11-30-2019 09:00-0400 Pulse (Heart Rate) 65 /min [facility], [place] 11-30-2019 09:00-0400 Pulse Oximetry 95 % [facility] , [place] 11-30-2019 09:00-0400 Respiratory Rate 18 /min [facility], [place] 11-30-2019 06:40-0400 BMI (Body Mass Index) 32.45 kg/m2 [facility], [place] 11-30-2019 06:40-0400 Body weight 93.98 kg [facility] , [place] 11-30-2019 06:40-0400 Height 170.2 cm [facility] [place] 11-24-2019 13:01-0400 BMI (Body Mass Index) 32.79 kg/m2 [facility] 11-24-2019 13:01-0400 Body weight 94.97 kg [facility] , [place] 11-24-2019 13:01-0400 Height 170.2 cm [facility] , [place] 11-24-2019 12:58-0400 Body Temperature 97.59 [degF] [place], [place] 11-24-2019 12:58-0400 BP Diastolic 98 mm[Hg] [facility] , [place] 11-24-2019 12:58-0400 BP Systolic 175 mm[Hg] [facility] , [place] 11-24-2019 12:58-0400 Pulse (Heart Rate) 64 /min [place], [place] 11-24-2019 12:58-0400 Pulse Oximetry 97 % [place], [place] 11-24-2019 12:58-0400 Respiratory Rate 16 /min [place], [place] Encounters Encounter Date Encounter Type Care Provider Facility Start: 02-01-2023 Refill David Hoyt MD Work Phone: [facility] Start: 01-22-2023 Refill Mariemagalys roe PREVOCATIONAL/REHABILITATION COUNSELOR - BULLARD OPERATOR Work Phone: [facility] Start: 11-25-2022 Refill Marie Pawel roe PREVOCATIONAL/REHABILITATION COUNSELOR - BULLARD OPERATOR Work Phone: [facility] Start: 10-23-2022 Documentation procedure Nedra Montez PT [facility] Start: 10-23-2022 Refill Marie Armas thal PREVOCATIONAL/REHABILITATION COUNSELOR - BULLARD OPERATOR Work Phone: [facility] Start: 08-22-2022 End: 08-23-2022 ambulatory DAVID HOYT [facility] Start: 08-22-2022 End: 08-22-2022 Follow-up encounter David Hoyt MD Work Phone: [facility] Procedures Date Procedure Procedure Detail Performing Clinician Start: 06-20-2022 End: 06-20-2022 Screening digital breast tomosynthesis bi David Hoyt MD Work Phone: Start: 06-12-2022 Lipid 1996 panel - S risa or Plasma David Hoyt MD Work Phone: Start: 12-19-2021 Lipid 1996 panel - S risa or Plasma [facility] 3 Start: 05-09-2021 Us breast uni real t barbie with image limited David Hoyt MD Work Phone: Start: 05-09-2021 Diagnostic mammograp hy computer-aided detcj uni Davdi Hoyt MD Work Phone: Start: 04-24-2021 Radex spine lumbosac ral minimum 4 views David Hoyt MD Work Phone: Start: 05-01-2020 Screening mammograph y bi 2-view breast inc cad David Hoyt Work Phone: Start: 05-01-2020 Mammography [facility] 3 Start: 02-07-2020 Mri any jt upper [...] DTaP/Tdap/Td vaccine (2 - Td or Tdap) [facility] Start: 09-19-2028 DTaP/Tdap/Td vaccine (2 - Td) DTaP/Tdap/Td vaccine (2 - Td) [facility] Work Phone: Start: 09-19-2028 DTaP/Tdap/Td Vaccine s (2 - Td or Tdap) DTaP/Tdap/Td Vaccines (2 - Td or Tdap) [facility] Start: 06-13-2027 Lipid panel Lipid Panel [facility] Start: 12-19-2026 Lipid panel Lipid Panel [facility] Start: 06-12-2025 Diabetes mellitus screening Diabetes Screening [facility] Start: 05-05-2025 Colon cancer screen colonoscopy Colon cancer screen colonoscopy [facility] Work Phone: Start: 05-05-2025 Screening for malign ant neoplasm of colon [facility] Start: 07-13-2023 Medicare Annual Well ness (AWV) Medicare Annual Wellness (AWV) [facility] Start: 06-21-2023 Screening for malign ant neoplasm of breast Mammogram [facility] Start: 06-17-2023 End: 06-17-2023 Patient encounter procedure [facility] Start: 12-18-2022 End: 12-18-2022 Patient encounter procedure [facility] Start: 12-12-2022 Depresssion Monitoring Depresssion M onitoring [facility] Start: 10-11-2022 COVID-19 Vaccine () COVID-19 Vaccine () [facility] Start: 10-11-2022 Influenza vaccination Influenza Vacc ine (#1) [facility] Start: 09-05-2022 End: 09-05-2022 ambulatory 09/05/2022 2:00 PM EDT Evaluation [facility] [address] [place] [address] Janae Riggins, PT [facility] Start: 09-02-2022 End: 09-02-2022 Follow-up encounter 09/02/2022 2:00 PM EDT Follow-Up [facility] [address] [place] [address] Claire Gallo, SANITATION MANAGER [facility] Start: 08-29-2022 End: 08-29-2022 Follow-up encounter 08/29/2022 2:00 PM EDT Follow-Up [facility] [address] [place] [address] Perlita Olguin, PT [facility] Start: 08-26-2022 End: 08-26-2022 Follow-up encounter [facility] Start: 08-22-2022 End: 08-22-2022 Follow-up encounter 08/22/2022 2:00 PM EDT Follow-Up [facility] [address] [place] [address] Xavier Spivey PTA [facility] Start: 08-19-2022 End: 08-19-2022 Follow-up encounter [facility] Start: 08-15-2022 End: 08-15-2022 Follow-up encounter 08/15/2022 5:30 PM EDT Follow-Up [facility] [address] [place] [address] Xavier Spivey PTA [facility] Start: 08-08-2022 End: 08-08-2022 ambulatory [facility] Start: 08-05-2022 End: 08-05-2022 Follow-up encounter [facility] Start: 08-02-2022 End: 08-02-2022 Follow-up encounter [facility] Start: 07-30-2022 End: 07-30-2022 Follow-up encounter [facility] Start: 06-20-2022 End: 06-20-2022 Patient encounter procedure 06/20/[address] [facility] Start: 06-12-2022 End: 06-13-2023 25-hydroxyvitamin D3 [Mass/volume] in Serum or Plasma Vitamin D 25 hydroxy Lab Routine Vitamin D deficiency Expected: 06/12/2022 (Approximate), Expires: 06/13/2023 [facility] Immunizations Immunization Date Immunization Notes Care Provider Fa jassi 12-24-2021 Pfizer SARS-CoV-2 Vaccination David Hoyt MD Work Phone: [facility] 11-30-2021 Influenza, High-dose Seasonal, Quadrivalent, Preservative Free [address] 11-30-2021 influenza virus vacc ine, unspecified formulation Xavier Spivey [facility] 01-13-2021 zoster vaccine recombinant David Hoyt MD Work Phone: [facility] Work Phone: 12-09-2020 Influenza, High-dose , Quadv, 65 yrs +, IM (Fluzone) David Hoyt MD Work Phone: [facility] Work Phone: 12-09-2020 Pfizer SARS-CoV-[address] 08-17-2020 zoster vaccine recombinant David Hoyt MD Work Phone: [facility] Work Phone: 05-05-2020 Pfizer SARS-CoV-[address] 04-14-2020 Pfizer SARS-CoV-2 Vaccination David Hoyt MD Work Phone: [facility] 04-07-2020 COVID-19, Pfizer, PF , 30mcg/0.3mL David Hoyt [facility] Work Phone: 12-03-2019 Influenza, High-dose , Quadv, 65 yrs +, IM (Fluzone) David [facility] [place], [place] 11-11-2018 influenza, high dose seasonal, preservative-free [facility] 09-19-2018 tetanus toxoid, redu charlee diphtheria toxoid, and acellular pertussis vaccine, [facility]: 10-28-2017 influenza, injectabl e, quadrivalent, preservative free [facility] 05-26-2017 pneumococcal polysaccharide vaccine, 23 valent [facility] Work Phone: 11-01-2016 influenza, high dose seasonal, preservative-free [facility] 02-19-2016 pneumococcal conjuga te vaccine, 13 valent [facility] 11-16-2015 influenza virus vacc ine, unspecified formulation [facility] 11-16-2015 influenza virus vacc ine, whole virus [address] 11-12-2013 influenza virus vacc ine, unspecified formulation [facility] Work Phone: 11-12-2013 influenza, seasonal, injectable [address] 2013 pneumococcal Conjuga te, unspecified formulation [facility] Work Phone: 2013 zoster vaccine, live [facility] Work Phone: Payers Date Payer Category Payer Unknown 2017 Unknown [id number] 2014 Medicare 2014 Medicare MEDICARE MEDICAR E PART A AND B xxxxxxxxxxx 2014-Present [phone] [place] [address] xxxxxxxxxxx [id number] 2014 Medicare [id number] 2014 Unknown BCBS [place] - [place] P PO xxxxxxxxx 2014-Present [address] [place] [address] xxxxxxxxx [id number] 1950 Unknown [id number] 1950 Unknown [id number] Social History Date Type Detail Facility Start: 01-21-2019 End: 12-19-2021 Tobacco smoking status [facility] Former smoker [employer] Work Phone: End: 02-18-1991 History of tobacco use Current smoker [employer] Work Phone: Start: 01-21-2019 End: 06-11-2022 Cigarettes smoked current (pack per day) - Reported [employer] Work Phone: Start: 01-21-2019 End: 11-24-2019 Alcohol intake Current non-drinker of alcohol (finding) [facility] Phone: Start: 1950 Sex Assigned At Not on file [facility] [employer] Work Phone: End: 02-18-1991 History of tobacco use Cigarette Smoker [facility] [place] Start: 01-27-2020 End: 12-19-2021 Tobacco use and exposure Never used [facility] [place], [place] Start: 01-27-2020 End: 07-10-2022 Alcohol intake Current drinker of alcohol (finding) [facility] [place] Start: 11-24-2019 [facility] [place] [place] Start: 03-28-2021 End: 06-12-2022 Exposure to SARS-CoV-2 (event) Not sure [place], [place] Start: 10-18-2020 End: 12-18-2021 History SDOH Financial 5 [employer] Work Phone: Start: 10-18-2020 End: 12-18-2021 History SDOH [facility] W[facility]: Start: 10-18-2020 End: 12-18-2021 History SDOH Transport Med 2 [facility] Work Phone: Start: 06-11-2022 End: 07-10-2022 Tobacco use panel [facility] How hard is it for y ou to pay for the very basics like food, housing, medical care, and heating Not hard at all [facility] (I/We) worried wheth er (my/our) food would run out before (I/we) got money to buy more. Never true [facility] Start: 06-15-2022 Sexual orientation Heterosexual (asia garza) [facility] Goals Date Patient Goal Desired Activity /State [...] original. Reviewed chart. Refill appropriate. RX sent. [facility] 02-04-2023 Miscellaneous Notes Formattin g of this note might be different from the original. Reviewed chart. Refill appropriate. RX sent. Prescription Request: Last medication check: 12/19/21 Last physical exam: 06/12/22 Next scheduled appointment: 06/17/23 Last date of refill on this medication 01/31/22 8 capsules 3 refills documented in this encounter [facility] 02-04-2023 Telephone encounter Note Form atting of this note might be different from the original. Prescription Request: Last medication check: 12/19/21 Last physical exam: 06/12/22 Next scheduled appointment: 06/17/23 Last date of refill on this medication 01/31/22 8 capsules 3 refills [facility] 01-22-2023 Telephone encounter Note Form atting of this note might be different from the original. Reviewed chart. Refill appropriate. RX sent. [facility] 01-22-2023 Miscellaneous Notes Formattin g of this note might be different from the original. Reviewed chart. Refill appropriate. RX sent. Prescription Request: Last medication check: 12/19/21 Last physical exam: 06/12/22 Next scheduled appointment: 06/17/23 Last date of refill on this medication 07/29/22 documented in this encounter [facility] 01-22-2023 Telephone encounter Note Form atting of this note might be different from the original. Prescription Request: Last medication check: 12/19/21 Last physical exam: 06/12/22 Next scheduled appointment: 06/17/23 Last date of refill on this medication 07/29/22 [facility] 11-25-2022 Telephone encounter Note Form atting of this note might be different from the original. Rx sent. Follow up as scheduled. [facility] 11-25-2022 Miscellaneous Notes Formattin g of this note might be different from the original. Rx sent. Follow up as scheduled. Prescription Request: Last medication check: 12/19/21 Last physical exam: 06/12/22 Next scheduled appointment: 12/18/22 Last date of refill on this medication 09/30/22 documented in this encounter [facility] 11-25-2022 Telephone encounter Note Form atting of this note might be different from the original. Prescription Request: Last medication check: 12/19/21 Last physical exam: 06/12/22 Next scheduled appointment: 12/18/22 Last date of refill on this medication 09/30/22 [facility] 10-24-2022 Telephone encounter Note Form atting of this note might be different from the original. Reviewed chart. Refill appropriate. Rx sent. [facility] 10-24-2022 Miscellaneous Notes Formattin g of this note might be different from the original. Reviewed chart. Refill appropriate. Rx sent. Prescription Request: Last medication check: 12/19/21 Last physical exam: 06/12/22 Next scheduled appointment: 12/18/22 Last date of refill on this medication 07/29/22 documented in this encounter [facility] 10-24-2022 Telephone encounter Note Form atting of this note might be different from the original. Prescription Request: Last medication check: 12/19/21 Last physical exam: 06/12/22 Next scheduled appointment: 12/18/22 Last date of refill on this medication 07/29/22 [facility] 10-23-2022 History of Presen t illness Narrative Images from the original note were not included. [facility] AT [address] [id number] Discharge Notification Patient Name: Payton Tabares : 1950 Today's Date: 10/23/2022 Patient has not been seen since 08/22/22. Per policy, this patient will be discharged due to inactive file. Thank you for this referral. For any questions on this patient s course of therapy, please call the clinic for clarification. Nedra Montez, PT Signing for Perlita Olguin PT documented in this encounter [facility] 08-22-2022 History of Presen t illness Narrative Images from the original note were not included. [facility] AT [address] [address] Dept: [phone] Dept PHYSICAL THERAPY TREATMENT Patient Name: Payton [...] Comment: STS 1x10 (min. A eccentric focus), (GIN POLE OPERATOR) 4 box step ups with no UE 2x10 leonila; mini squats at rails no UE 2x10 Therapeutic Activity 2: Airex Beam Activity 2 Comment: 3 12 hurdles tandem gait FTS to no UE CGA x4 laps Therapeutic Activity 4: NuStep Activity 4 Comment: lvl 2 UE/LE x5 min Therapeutic Activity 5: Core stability Activity 5 Comment: CC (GIN POLE OPERATOR): rows #25 2x10, SAPD #25 2x10, Seated [...] Xavier Spivey PTA documented in this encounter [facility] 08-15-2022 History of Presen t illness Narrative Images from the original note were not included. [facility] [place] [facility] AT [place] [address] [place] [address] Dept: [phone] Dept PHYSICAL THERAPY TREATMENT Patient Name: Payton [...] CC: rows #25 2x10, SAPD #25 2x10, (GIN POLE OPERATOR)palloff press #20 x15 ea Therapeutic Activity Therapeutic [...] Xavier Spivey PTA documented in this encounter [facility] 08-08-2022 History of Presen t illness Narrative [facility] [place] [facility] AT [facility] [address] [place] [address] Dept: [phone] Dept PHYSICAL THERAPY RE-EVALUATION Patient Name: Payton [...] (IR) 5/5 5/5 Multi-system balance testin time Bkc-kf-Jcciw (STS): 11.06 seconds - Use of UEs?: [...] Perlita Olguin PT documented in this encounter [facility] 08-05-2022 History of Presen t illness Narrative [facility] AT [address] [place] [address] Dept: [phone] Dept PHYSICAL THERAPY TREATMENT Patient Name: Payton [...] Perlita Olguin PT documented in this encounter [facility] 08-02-2022 History of Presen t illness Narrative [facility] [place] [facility] AT [place] [address] [place] [address] Dept: [phone] Dept PHYSICAL THERAPY TREATMENT Patient Name: Payton [...] Perlita Olguin PT documented in this encounter [facility] 07-30-2022 History of Presen t illness Narrative Images from the original note were not included. [facility] [place] [facility] AT [place] [address] [place] [address] Dept: [phone] Dept PHYSICAL THERAPY TREATMENT Patient Name: Payton [...] Xavier Spivey PTA documented in this encounter [facility] 07-29-2022 Telephone encounter Note Form atting of this note might be different from the original. Reviewed chart. Refill appropriate. RX sent. [facility] 07-29-2022 Miscellaneous Notes Formattin g of this note might be different from the original. Reviewed chart. Refill appropriate. RX sent. Prescription Request: Last medication check: 12/19/21 Last physical exam: 06/12/22 Next scheduled appointment: 12/18/22 Last date of refill on this medication 01/31/22 30 day 5 refills documented in this encounter [facility] 07-29-2022 Telephone encounter Note Form atting of this note might be different from the original. 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 Home Setup: lives with in [...] reconstruction (Left, 2016); Colonoscopy; Mastectomy (Left, 08/10/2007); [place] tooth extraction; Cataract extraction w/ intraocular lens [...] and external rotators Multi-system balance testin time Eom-bw-Spvjw (STS): 17.46 seconds - Use of UEs?: [...] Perlita Olguin, PT documented in this encounter [facility] 06-12-2022 Evaluation + Plan note Associ ated Problem(s): Hyperlipidemia Controlled, continue rosuvastatin 40 mg daily [facility] 06-12-2022 Evaluation + Plan note Associ ated Problem(s): Recurrent major depressive disorder, in full remission (HCC) Remission, continue Prozac 40 mg daily [facility] 06-12-2022 Miscellaneous Notes Associate d Problem(s): Hyperlipidemia [...] balance, she would prefer to go to [place] so we will set her up at the [facility] documented in this encounter [facility] 06-12-2022 Evaluation + Plan note Associ ated Problem(s): Vitamin D deficiency Stable, continue vitamin D 50,000 units weekly [facility] 06-12-2022 Evaluation + Plan note Associ ated Problem(s): Prediabetes Stable, will recheck lab work today and she would like some information on diet and exercise for prediabetes [facility] 06-12-2022 Evaluation + Plan note Associ ated Problem(s): Hypertension Controlled, continue irbesartan 150 mg daily [facility] 06-12-2022 Evaluation + Plan note Associ ated Problem(s): Weakness of both lower extremities We will schedule patient for PT for strengthening and balance, she would prefer to go to [place] so we will set her up at the [facility] 06-12-2022 History of Presen t illness Narrative Images from the original note were not included. [facility] [address] [facility] [place] [address] Visit type: Established Patient Reason for Visit: Medicare Annual Wellness Visit Subsequent, Blood Work, and Health Maintenance (DEXA-wants/COVID #4 had this, will bring card/Hep B vaccine-discuss with PCP/Hep C screen-wants) Assessment and Plan Problem List Items Addressed This Visit Nervous Weakness of both lower extremities We will schedule patient for PT for strengthening and balance, she would prefer to go to [place] so we will set her up at [facility] Relevant Orders External referral to Physical Therapy [...] g 0 ergocalciferol (Vitamin D2) 1.25 MG (14036 UT) capsule TAKE 1 CAPSULE BY MOUTH [...] g 0 ergocalciferol (Vitamin D2) 1.25 MG (36919 UT) capsule TAKE 1 CAPSULE BY MOUTH [...] use: No Social History Narrative 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 Reviewed chart. Refill appropriate. Rx sent. [facility] 05-27-2022 Miscellaneous Notes Formattin g of this note might be different from the original. Reviewed chart. Refill appropriate. Rx sent. Prescription Request: Last medication check: 12/19/21 Last physical exam: 10/18/20 Next scheduled appointment: none CSA on file (date): na Last urine drug screen: na Last date of refill on this medication 12/17/21 documented in this encounter [facility] 05-27-2022 Telephone encounter Note Form atting of this note might be different from the original. Prescription Request: Last medication check: 12/19/21 Last physical exam: 10/18/20 Next scheduled appointment: none CSA on file (date): na Last urine drug screen: na Last date of refill on this medication 12/17/21 [facility] documented in this encounter [facility] Work Phone: Evaluation note* Diagnosis Mastalgia Mastodynia Atherosclerosis of aorta (HCC) Atherosclerosis of aorta Peripheral vascular disease, unspecified (HCC) Peripheral vascular disease, unspecified documented in this encounter [facility] Work Phone: Evaluation note* Diagnosis Bronchitis Bronchitis, not specified as acute or chronic documented in this encounter [facility]* Diagnosis Medicare annual wellness visit, subsequent- Primary Weakness of both lower extremities Primary hypertension Unspecified essential hypertension Prediabetes Other abnormal glucose Vitamin D deficiency Recurrent major depressive disorder, in full remission (HCC) Pure hypercholesterolemia Menopause Symptomatic menopausal or female climacteric states Encounter for hepatitis C screening test for low risk patient documented in this encounter [facility]* Diagnosis Encounter for screening mammogram for malignant neoplasm of breast documented in this encounter [facility]* Diagnosis Weakness of both lower extremities documented in this encounter [facility]* Diagnosis Encounter for screening mammogram for malignant neoplasm of breast- Primary documented in this encounter [facility]* Diagnosis Weakness of both lower extremities- Primary documented in this encounter [facility]* Diagnosis Weakness of both lower extremities- Primary documented in this encounter [facility]* Diagnosis Weakness of both lower extremities- Primary [facility] Diagnosis Weakness of both lower extremities- Primary documented in this encounter [facility]* Diagnosis Weakness of both lower extremities- Primary documented in this encounter [facility]* Diagnosis Weakness of both lower extremities- Primary documented in this encounter [facility] Summary Purpose Family History No Family History Records FoundNo Family History Records FoundNo Family History Records FoundNo Family History Records FoundNo Family History Records FoundNo Family History Records FoundNo Family History Records FoundNo Family History Records Found Advance Directives No Advanced Directives Records FoundDocuments on File Type Date Recorded Patient Plating Equipment Tender Expl anation Advance Directives and Living Will Power of Ambulatory Care Coordinator Documents on File Type Date Recorded Patient Plating Equipment Tender Expl anation ACP-Advance Directive ACP-Power of Ambulatory Care Coordinator Latest Code Status on File Code Status Date Activated Date Inactivated Comments Full Code 11/30/2019 6:17 AM 11/30/2019 11:34 AM Documents on File Type Date Recorded 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 [address] Specialty Diagnoses / Procedures Referred By Contac t Referred To Contact Radiology Diagnoses Mastalgia Procedures US Breast Limited Right David Hoyt MD [address] [place] [address] Referral ID Status Reason Start Date Expiration Date Visits Re quested Visits Authorized [id number] Open 05/09/2021 05/09/2022 1 1 Specialty Diagnoses / Procedures Referred By Contac t Referred To Contact Physical Therapy Diagnoses Weakness of both lower extremities Procedures [place] OFFICE/OUTPATIENT NEW HIGH MDM 60-74 MINUTES David Hoyt MD [address] [place] [address] Referral ID Status Reason Start Date Expiration Date Visits Requested Visits Authorized [id number] Authorized Eval and Treat 06/12/2022 12/09/2022 99 99 Scheduling Instructions [facility] Eval and treat for strength and [...] do not hesitate to call theoffice at [phone] for any questions. After hours, the same number will allow you to reach the on-call surgeon. ? Call the office to schedule your post-operative appointment with Dr. Naranjo or PA/GIN POLE OPERATOR for 2 weeks if not already scheduled. [...] several days. Please call the office at [phone] for any questions and too make your [...] PHASE II . ALERT SPONT RESP. WITH MANAGER UTILIZATION MANAGEMENT IN ATTENDANCE documented in this encounter Additional Source Comments INFORMATION SOURCE (unrecogn ized section and content) DATE CREATED AUTHOR AUTHOR'S ORGANIZ ATION 03/30/2018 [facility] DATE CREATED AUTHOR AUTHOR'S ORGANIZ ATION 09/09/2018 [facility] DATE CREATED AUTHOR AUTHOR'S ORGANIZ ATION 09/12/2018 [facility] DATE CREATED AUTHOR AUTHOR'S ORGANIZ ATION 05/20/2020 [facility] DATE CREATED AUTHOR AUTHOR'S ORGANIZ ATION 03/20/2021 [facility] DATE CREATED AUTHOR AUTHOR'S ORGANIZ ATION 05/24/2021 [facility] DATE CREATED AUTHOR AUTHOR'S ORGANIZ ATION 02/06/[address] [facility] [address] [facility] Reason for Visit (unrecogniz ed section and content) Reason Comments Med Refill Reason Comments Medicare Annual Wellness Visit Subsequen t Blood Work Health Maintenance DEXA-wantsCOVID #4 h ad this, will bring cardHep B vaccine-discuss with PCPHep C screen-wants Specialty Diagnoses / Procedures Referred By Contalberto t Referred To Contact Physical Therapy Diagnoses Weakness of both lower extremities Procedures [place] OFFICE/OUTPATIENT [facility] MDM 60-74 MINUTES David Hoyt MD [address], [place] [address] [facility] [address] [place] [address] Referral ID Status Reason Start Date Expiration Date Visits Requested Visits Authorized [id number] Authorized Eval and Treat 06/12/2022 12/09/2022 99 99 Care Teams (unrecognized sec tion and content) Dryerman/Woman Relationship Specialty Start Date End Date David Hoyt MD [address] [place], [place] [address] [address] PCP - General 02/22/16 Dryerman/Woman Relationship Specialty Start Date End Date David Hoyt MD [address] [place], [place] [address] [address] PCP - General 07/11/18 Dryerman/Woman Relationship Specialty Start Date End Date David Hoyt MD [address] [place], [place] [address], [place] [id number] PCP - General 07/11/18 Dryerman/Woman Relationship Specialty Start Date End Date David Hoyt MD [address] [place], [place] [address] [address] PCP - General 07/11/18 Dryerman/Woman Relationship Specialty Start Date End Date David Hoyt MD [address] [place], [place] [address] [id number] PCP - General 07/11/18 Dryerman/Woman Relationship Specialty Start Date End Date David Hoyt MD [address] [place], [place] [address] [address] PCP - General 07/11/18 Dryerman/Woman Relationship Specialty Start Date End Date David Hoyt MD [address] [place], [place] [address] [address] PCP - General 07/11/18 Dryerman/Woman Relationship Specialty Start Date End Date David Hoyt MD [address] [place], [place] [address] [address] PCP - General 07/11/18 Dryerman/Woman Relationship Specialty Start Date End Date David Hoyt MD [address] [facility] [place] [address] PCP - General 07/11/18 Dryerman/Woman Relationship Specialty Start Date End Date David Hoyt MD [address] [facility] [place] [address] PCP - General 07/11/18 Dryerman/Woman Relationship Specialty Start Date End Date David Hoyt MD [address] [place] [address] PCP - General 07/11/18 Dryerman/Woman Relationship Specialty Start Date End Date David Hoyt MD [address] [place] [address] PCP - General 07/11/18 Dryerman/Woman Relationship Specialty Start Date End Date David Hoyt MD [address] [place] [address] [place] [address] PCP - General 07/11/18 Dryerman/Woman Relationship Specialty Start Date End Date David Hoyt MD [address] [place] [address] [place] [address] PCP - General 07/11/18 Dryerman/Woman Relationship Specialty Start Date End Date David Hoyt MD [address] [place] [address] [place] [address] PCP - General 07/11/18 Dryerman/Woman Relationship Specialty Start Date End Date David Hoyt MD [address] [place] [address], [place] [address] PCP - General 07/11/18 FOR RECORDS PERTAINING [...] BE BASED ON THE PRIMARY CLINICAL RECORDS. [employer] provides no warranty or guarantee of the accuracy or completeness of information in this document.
--- OUTSIDE RECORDS SUMMARY | 2023-04-10 07:19 | XMS RPT_ITS | CCD ---
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 (19 sources) Wound Dressing Adhesive Drug Intolerance 0 [facility] Medications Current Medications Medication Drug Class(es) Dates [...] times daily 21 tablet 1 12/22/2017 Active [id number] 200 actuat albuterol 0.09 mg/actuat metered dose [...] 20 mg/ml oral suspension (1 source) Uncompetitive X-cawpmv-T-aspartat e Receptor Antagonist, Sigma-1 Agonist Start: 04-30-2022 [...] every week ergocalciferol (Vitamin D2) 1.25 MG (12048 UT) capsule TAKE 1 CAPSULE BY MOUTH [...] 167.6 cm David Hoyt MD Work Phone: [employer] 06-20-2022 14:00-0400 Body mass index (BMI) [Ratio] 33.41 kg/m2 David Hoyt MD Work Phone: [employer] 06-20-2022 14:00-0400 Body weight 93.89 kg David Hoyt MD Work Phone: [employer] 06-12-2022 10:01-0400 Body height 167.6 cm David Hoyt MD Work Phone: [employer] 06-12-2022 10:01-0400 Body mass index (BMI) [Ratio] 33.41 kg/m2 David Hoyt MD Work Phone: [employer] 06-12-2022 10:01-0400 Body weight 93.89 kg David Hoyt MD Work Phone: [employer] 06-12-2022 10:01-0400 Diastolic blood pressure 84 mm[Hg] David Hoyt MD Work Phone: [employer] 06-12-2022 10:01-0400 Heart rate 66 /min David Hoyt MD Work Phone: [employer] 06-12-2022 10:01-0400 SaO2% (BldA) [Mass fraction] 94 % David Hoyt MD Work Phone: [employer] 06-12-2022 10:01-0400 Systolic blood pressure 128 mm[Hg] David Hoyt MD Work Phone: [facility] [employer] 11-30-2019 09:00-0400 Body Temperature 97.39 [degF] [place] [facility] 11-30-2019 09:00-0400 BP Diastolic 67 mm[Hg] [facility] , [place] 11-30-2019 09:00-0400 BP Systolic 118 mm[Hg] [facility] [place] 11-30-2019 09:00-0400 Pulse (Heart Rate) 65 /min [facility] 11-30-2019 09:00-0400 Pulse Oximetry 95 % [facility] [place] 11-30-2019 09:00-0400 Respiratory Rate 18 /min [facility], [place] 11-30-2019 06:40-0400 BMI (Body Mass Index) 32.45 kg/m2 [facility] 11-30-2019 06:40-0400 Body weight 93.98 kg [facility] [place] 11-30-2019 06:40-0400 Height 170.2 cm [facility] [place] 11-24-2019 13:01-0400 BMI (Body Mass Index) 32.79 kg/m2 [facility] 11-24-2019 13:01-0400 Body weight 94.97 kg [facility] [place] 11-24-2019 13:01-0400 Height 170.2 cm [facility] [place] 11-24-2019 12:58-0400 Body Temperature 97.59 [degF] [place], [place] 11-24-2019 12:58-0400 BP Diastolic 98 mm[Hg] [facility] [place] 11-24-2019 12:58-0400 BP Systolic 175 mm[Hg] [facility] [place] 11-24-2019 12:58-0400 Pulse (Heart Rate) 64 /min [place], [place] 11-24-2019 12:58-0400 Pulse Oximetry 97 % [place], [place] 11-24-2019 12:58-0400 Respiratory Rate 16 /min [place], [place] Encounters Encounter Date Encounter Type Care Provider Facility Start: 02-01-2023 Refill David Hoyt MD Work Phone: [facility] Start: 01-22-2023 Refill Mariemagalys roe 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 - 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 DYER Work Phone: [facility] Start: 11-25-2022 Refill Marie Pawel roe [employer]CAFFOLDING HELPER - [employer]ER Work Phone: [facility] Start: 10-23-2022 Documentation procedure Nedra Montez PT [facility] Start: 10-23-2022 Refill Marie Armas thal [employer]CAFFOLDING HELPER - [employer]IN DYER Work Phone: [facility] Start: 08-22-2022 End: 08-23-2022 ambulatory DAVID HOYT [facility] Start: 08-22-2022 End: 08-22-2022 Follow-up encounter David Hoyt MD Work Phone: [facility] Procedures Date Procedure Procedure Detail Performing Clinician Start: 06-20-2022 End: 06-20-2022 Screening digital breast tomosynthesis bi David Hoyt MD Work Phone: Start: 06-12-2022 Lipid 1996 panel - S risa or Plasma David Hoyt MD Work Phone: Start: 12-19-2021 Lipid 1996 panel - S risa or Plasma [facility] 3 Start: 05-09-2021 Us breast uni real t barbie with image limited David Hoyt MD Work Phone: Start: 05-09-2021 Diagnostic mammograp hy computer-aided detcj uni Daivd Hoyt MD Work Phone: Start: 04-24-2021 Radex spine lumbosac ral minimum 4 views David Hoyt MD Work Phone: Start: 05-01-2020 Screening mammograph y bi 2-view breast inc cad David Hoyt Work Phone: Start: 05-01-2020 Mammography [facility] Start: 02-07-2020 Mri any jt upper [...] DTaP/Tdap/Td vaccine (2 - Td or Tdap) [facility] Start: 09-19-2028 DTaP/Tdap/Td vaccine (2 - Td) DTaP/Tdap/Td vaccine (2 - Td) [facility] Work Phone: Start: 09-19-2028 DTaP/Tdap/Td Vaccine s (2 - Td or Tdap) DTaP/Tdap/Td Vaccines (2 - Td or Tdap) [facility] Start: 06-13-2027 Lipid panel Lipid Panel [facility] Start: 12-19-2026 Lipid panel Lipid Panel [facility] Start: 06-12-2025 Diabetes mellitus screening Diabetes Screening [facility] Start: 05-05-2025 Colon cancer screen colonoscopy Colon cancer screen colonoscopy [facility] Work Phone: Start: 05-05-2025 Screening for malign ant neoplasm of colon [facility] Start: 07-13-2023 Medicare Annual Well ness (AWV) Medicare Annual Wellness (AWV) [facility] Start: 06-21-2023 Screening for malign ant neoplasm of breast Mammogram [facility] Start: 06-17-2023 End: 06-17-2023 Patient encounter procedure [facility] Start: 12-18-2022 End: 12-18-2022 Patient encounter procedure [facility] Start: 12-12-2022 Depresssion Monitoring Depresssion M onitoring [facility] Start: 10-11-2022 COVID-19 Vaccine () COVID-19 Vaccine () [facility] Start: 10-11-2022 Influenza vaccination Influenza Vacc ine (#1) [facility] Start: 09-05-2022 End: 09-05-2022 ambulatory 09/05/2022 2:00 PM EDT Evaluation [facility] at [address] [place] [address] Janae Riggins, PT [facility] Start: 09-02-2022 End: 09-02-2022 Follow-up encounter 09/02/2022 2:00 PM EDT Follow-Up [facility] [address] [place] [address] Claire Gallo, PRESSURE CONTROLLER [facility] Start: 08-29-2022 End: 08-29-2022 Follow-up encounter 08/29/2022 2:00 PM EDT Follow-Up [facility] [address] [place] [address] Perlita Olguin, PT [facility] Start: 08-26-2022 End: 08-26-2022 Follow-up encounter [facility] Start: 08-22-2022 End: 08-22-2022 Follow-up encounter 08/22/2022 2:00 PM EDT Follow-Up [facility] [address] [place] [address] Xavier Spivey PTA [facility] Start: 08-19-2022 End: 08-19-2022 Follow-up encounter [facility] Start: 08-15-2022 End: 08-15-2022 Follow-up encounter 08/15/2022 5:30 PM EDT Follow-Up [facility] [address] [place] [address] Xavier Spivey PTA [facility] Start: 08-08-2022 End: 08-08-2022 ambulatory [facility] Start: 08-05-2022 End: 08-05-2022 Follow-[address] encounter [facility] Start: 08-02-2022 End: 08-02-2022 Follow-up encounter [facility] Start: 07-30-2022 End: 07-30-2022 Follow-up encounter [facility] Start: 06-20-2022 End: 06-20-2022 Patient encounter procedure 06/20/[address] [facility] Start: 06-12-2022 End: 06-13-2023 25-hydroxyvitamin D3 [Mass/volume] in Serum or Plasma Vitamin D 25 hydroxy Lab Routine Vitamin D deficiency Expected: 06/12/2022 (Approximate), Expires: 06/13/2023 [facility] Immunizations Immunization Date Immunization Notes Care Provider Fa jassi 12-24-2021 Pfizer SARS-CoV-2 Vaccination David Hoyt MD Work Phone: [facility] 11-30-2021 Influenza, High-dose Seasonal, Quadrivalent, Preservative Free [address] 11-30-2021 influenza virus vacc ine, unspecified formulation Xavier Spivey [facility] 01-13-2021 zoster vaccine recombinant David Hoyt MD Work Phone: [facility] Work Phone: 12-09-2020 Influenza, High-dose , Quadv, 65 yrs +, IM (Fluzone) David Hoyt MD Work Phone: [facility] Work Phone: 12-09-2020 Pfizer SARS-CoV-[address] 08-17-2020 zoster vaccine recombinant David Hoyt MD Work Phone: [facility] Work Phone: 05-05-2020 Pfizer SARS-CoV-[address] 04-14-2020 Pfizer SARS-CoV-2 Vaccination David Hoyt MD Work Phone: [facility] 04-07-2020 COVID-19, Pfizer, PF , 30mcg/0.3mL David Hoyt [facility] Work Phone: 12-03-2019 Influenza, High-dose , Quadv, 65 yrs +, IM (Fluzone) David [facility] [place] [place] 11-11-2018 influenza, high dose seasonal, preservative-free [facility] 09-19-2018 tetanus toxoid, redu charlee diphtheria toxoid, and acellular pertussis vaccine, adsorbed [facility] Work Phone: 10-28-2017 influenza, injectabl e, quadrivalent, preservative free [facility] 05-26-2017 pneumococcal polysaccharide vaccine, 23 valent [facility] Work Phone: 11-01-2016 influenza, high dose seasonal, preservative-free [facility] 02-19-2016 pneumococcal conjuga te vaccine, 13 valent [facility] 11-16-2015 influenza virus vacc ine, unspecified formulation [facility] 11-16-2015 influenza virus vacc ine, whole virus [address] 11-12-2013 influenza virus vacc ine, unspecified formulation [facility] Work Phone: 11-12-2013 influenza, seasonal, injectable [address] 2013 pneumococcal Conjuga te, unspecified formulation [facility] Work Phone: 2013 zoster vaccine, live [facility] Work Phone: Payers Date Payer Category Payer Unknown 2017 Unknown [id number] 2014 Medicare 2014 Medicare MEDICARE MEDICAR E PART A AND B xxxxxxxxxxx 2014-Present [phone] [place] [address] xxxxxxxxxxx [id number] 2014 Medicare [id number] 2014 Unknown BCBS [place] - [place] P PO xxxxxxxxx 2014-Present [address] [place] [address] xxxxxxxxx [id number] 1950 Unknown [id number] 1950 Unknown [id number] Social History Date Type Detail Facility Start: 01-21-2019 End: 12-19-2021 Tobacco smoking status [facility] Former smoker [employer] Work Phone: End: 02-18-1991 History of tobacco use Current smoker [employer] Work Phone: Start: 01-21-2019 End: 06-11-2022 Cigarettes smoked current (pack per day) - Reported [employer] Work Phone: Start: 01-21-2019 End: 11-24-2019 Alcohol intake Current non-drinker of alcohol (finding) [employer] Phone: Start: 1950 Sex Assigned At Not on file [employer] Work Phone: End: 02-18-1991 History of tobacco use Cigarette Sm[facility] [place] Start: 01-27-2020 End: 12-19-2021 Tobacco use and exposure Never used [employer] [place] Start: 01-27-2020 End: 07-10-2022 Alcohol intake Current drinker of alcohol (finding) [facility] [place] Start: 11-24-2019 [facility] [place] [place] Start: 03-28-2021 End: 06-12-2022 Exposure to SARS-CoV-2 (event) Not sure [place], [place] Start: 10-18-2020 End: 12-18-2021 History SDOH Financial 5 [employer] Work Phone: Start: 10-18-2020 End: 12-18-2021 History SDOH Food Worry 1 [facility]: Start: 10-18-2020 End: 12-18-2021 History SDOH Transport Med 2 [facility] Work Phone: Start: 06-11-2022 End: 07-10-[address] [facility] [employer] How hard is it for y ou to pay for the very basics like food, housing, medical care, and heating Not hard at all [facility] [employer] (I/We) worried wheth er (my/our) food would run out before (I/we) got money to buy more. Never true [facility] Start: 06-15-2022 Sexual orientation Heterosexual (asia garza) [facility] Goals Date Patient Goal Desired Activity /State [...] original. Reviewed chart. Refill appropriate. RX sent. [facility] 02-04-2023 Miscellaneous Notes Formattin g of this note might be different from the original. Reviewed chart. Refill appropriate. RX sent. Prescription Request: Last medication check: 12/19/21 Last physical exam: 06/12/22 Next scheduled appointment: 06/17/23 Last date of refill on this medication 01/31/22 8 capsules 3 refills documented in this encounter [facility] 02-04-2023 Telephone encounter Note Form atting of this note might be different from the original. Prescription Request: Last medication check: 12/19/21 Last physical exam: 06/12/22 Next scheduled appointment: 06/17/23 Last date of refill on this medication 01/31/22 8 capsules 3 refills [facility] 01-22-2023 Telephone encounter Note Form atting of this note might be different from the original. Reviewed chart. Refill appropriate. RX sent. [facility] 01-22-2023 Miscellaneous Notes Formattin g of this note might be different from the original. Reviewed chart. Refill appropriate. RX sent. Prescription Request: Last medication check: 12/19/21 Last physical exam: 06/12/22 Next scheduled appointment: 06/17/23 Last date of refill on this medication 07/29/22 documented in this encounter [facility] 01-22-2023 Telephone encounter Note Form atting of this note might be different from the original. Prescription Request: Last medication check: 12/19/21 Last physical exam: 06/12/22 Next scheduled appointment: 06/17/23 Last date of refill on this medication 07/29/22 [facility] 11-25-2022 Telephone encounter Note Form atting of this note might be different from the original. Rx sent. Follow up as scheduled. [facility] 11-25-2022 Miscellaneous Notes Formattin g of this note might be different from the original. Rx sent. Follow up as scheduled. Prescription Request: Last medication check: 12/19/21 Last physical exam: 06/12/22 Next scheduled appointment: 12/18/22 Last date of refill on this medication 09/30/22 documented in this encounter [facility] 11-25-2022 Telephone encounter Note Form atting of this note might be different from the original. Prescription Request: Last medication check: 12/19/21 Last physical exam: 06/12/22 Next scheduled appointment: 12/18/22 Last date of refill on this medication 09/30/22 [facility] 10-24-2022 Telephone encounter Note Form atting of this note might be different from the original. Reviewed chart. Refill appropriate. Rx sent. [facility] 10-24-2022 Miscellaneous Notes Formattin g of this note might be different from the original. Reviewed chart. Refill appropriate. Rx sent. Prescription Request: Last medication check: 12/19/21 Last physical exam: 06/12/22 Next scheduled appointment: 12/18/22 Last date of refill on this medication 07/29/22 documented in this encounter [facility] 10-24-2022 Telephone encounter Note Form atting of this note might be different from the original. Prescription Request: Last medication check: 12/19/21 Last physical exam: 06/12/22 Next scheduled appointment: 12/18/22 Last date of refill on this medication 07/29/22 [facility] 10-23-2022 History of Presen t illness Narrative Images from the original note were not included. [facility] AT [address] [id number] Discharge Notification Patient Name: Payton Tabares : 1950 Today's Date: 10/23/2022 Patient has not been seen since 08/22/22. Per policy, this patient will be discharged due to inactive file. Thank you for this referral. For any questions on this patient s course of therapy, please call the clinic for clarification. Nedra Montez, PT Signing for Perlita Olguin PT documented in this encounter [facility] 08-22-2022 History of Presen t illness Narrative Images from the original note were not included. [facility] AT [address] [address] Dept: [phone] Dept PHYSICAL THERAPY TREATMENT Patient Name: Payton [...] Comment: STS 1x10 (min. 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 [facility] [place] [facility] AT [place] [address] [place] [address] Dept: [phone] Dept PHYSICAL THERAPY TREATMENT Patient Name: Payton [...] CC: rows #25 2x10, SAPD #25 2x10, (FIELD INTERVIEWER)palloff press #20 x15 ea Therapeutic Activity Therapeutic [...] Xavier Spivey PTA documented in this encounter [facility] [employer] 08-08-2022 History of Presen t illness Narrative [facility] [place] [facility] AT [facility] [address] [place] [address] Dept: [phone] Dept PHYSICAL THERAPY RE-EVALUATION Patient Name: Payton [...] (IR) 5/5 5/5 Multi-system balance testin time Efq-ge-Upyhd (STS): 11.06 seconds - Use of UEs?: [...] Perlita Olguin PT documented in this encounter [facility] [employer] 08-05-2022 History of Presen t illness [facility]arrative [facility] AT [address] [place] [address] Dept: [phone] Dept PHYSICAL THERAPY TREATMENT Patient Name: Payton [...] Perlita Olguin PT documented in this encounter [facility] 08-02-2022 History of Presen t illness Narrative [facility] [place] [facility] AT [place] [address] [place] [address] Dept: [phone] Dept PHYSICAL THERAPY TREATMENT Patient Name: Payton [...] Perlita Olguin PT documented in this encounter [facility] 07-30-2022 History of Presen t illness Narrative Images from the original note were not included. [facility] [place] [facility] AT [place] [address] [place] [address] Dept: [phone] Dept PHYSICAL THERAPY TREATMENT Patient Name: Payton [...] Xavier Spivey PTA documented in this encounter [facility] 07-29-2022 Telephone encounter Note Form atting of this note might be different from the original. Reviewed chart. Refill appropriate. RX sent. [facility] 07-29-2022 Miscellaneous Notes Formattin g of this note might be different from the original. Reviewed chart. Refill appropriate. RX sent. Prescription Request: Last medication check: 12/19/21 Last physical exam: 06/12/22 Next scheduled appointment: 12/18/22 Last date of refill on this medication 01/31/22 30 day 5 refills documented in this encounter [facility] 07-29-2022 Telephone encounter Note Form atting of this note might be different from the original. 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 Home Setup: lives with in [...] reconstruction (Left, 2016); Colonoscopy; Mastectomy (Left, 08/10/2007); [place] tooth extraction; Cataract extraction w/ intraocular lens [...] and external rotators Multi-system balance testin time Itn-tk-Ymiqn (STS): 17.46 seconds - Use of UEs?: [...] Perlita Olguin, PT documented in this encounter [facility] 06-12-2022 Evaluation + Plan note Associ ated Problem(s): Hyperlipidemia Controlled, continue rosuvastatin 40 mg daily [facility] 06-12-2022 Evaluation + Plan note Associ ated Problem(s): Recurrent major depressive disorder, in full remission (HCC) Remission, continue Prozac 40 mg daily [facility] 06-12-2022 Miscellaneous Notes Associate d Problem(s): Hyperlipidemia [...] balance, she would prefer to go to [place] so we will set her up at the [facility] documented in this encounter [facility] 06-12-2022 Evaluation + Plan note Associ ated Problem(s): Vitamin D deficiency Stable, continue vitamin D 50,000 units weekly [facility] 06-12-2022 Evaluation + Plan note Associ ated Problem(s): Prediabetes Stable, will recheck lab work today and she would like some information on diet and exercise for prediabetes [facility] 06-12-2022 Evaluation + Plan note Associ ated Problem(s): Hypertension Controlled, continue irbesartan 150 mg daily [facility] 06-12-2022 Evaluation + Plan note Associ ated Problem(s): Weakness of both lower extremities We will schedule patient for PT for strengthening and balance, she would prefer to go to [place] so we will set her up at the [facility] 06-12-2022 History of Presen t illness Narrative Images from the original note were not included. [facility] [address] [facility] [place] [address] Visit type: Established Patient Reason for Visit: Medicare Annual Wellness Visit Subsequent, Blood Work, and Health Maintenance (DEXA-wants/COVID #4 had this, will bring card/Hep B vaccine-discuss with PCP/Hep C screen-wants) Assessment and Plan Problem List Items Addressed This Visit Nervous Weakness of both lower extremities We will schedule patient for PT for strengthening and balance, she would prefer to go to [place] so we will set her up at the [facility] express Relevant Orders External referral to Physical Therapy [...] g 0 ergocalciferol (Vitamin D2) 1.25 MG (46144 UT) capsule TAKE 1 CAPSULE BY MOUTH [...] g 0 ergocalciferol (Vitamin D2) 1.25 MG (84139 UT) capsule TAKE 1 CAPSULE BY MOUTH [...] No Social History Narrative 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 Reviewed chart. Refill appropriate. Rx sent. [facility] 05-27-2022 Miscellaneous Notes Formattin g of this note might be different from the original. Reviewed chart. Refill appropriate. Rx sent. Prescription Request: Last medication check: 12/19/21 Last physical exam: 10/18/20 Next scheduled appointment: none CSA on file (date): na Last urine drug screen: na Last date of refill on this medication 12/17/21 documented in this encounter [facility] 05-27-2022 Telephone encounter Note Form atting of this note might be different from the original. Prescription Request: Last medication check: 12/19/21 Last physical exam: 10/18/20 Next scheduled appointment: none CSA on file (date): na Last urine drug screen: na Last date of refill on this medication 12/17/21 [facility] [employer] documented in this encounter [facility] Work Phone: Evaluation note* Diagnosis Mastalgia Mastodynia Atherosclerosis of aorta (HCC) Atherosclerosis of aorta Peripheral vascular disease, unspecified (HCC) Peripheral vascular disease, unspecified documented in this encounter [facility] Work Phone: Evaluation note* Diagnosis Bronchitis Bronchitis, not specified as acute or chronic documented in this encounter [facility]* Diagnosis Medicare annual wellness visit, subsequent- Primary Weakness of both lower extremities Primary hypertension Unspecified essential hypertension Prediabetes Other abnormal glucose Vitamin D deficiency Recurrent major depressive disorder, in full remission (HCC) Pure hypercholesterolemia Menopause Symptomatic menopausal or female climacteric states Encounter for hepatitis C screening test for low risk patient documented in this encounter [facility]* Diagnosis Encounter for screening mammogram for malignant neoplasm of breast documented in this encounter [facility]* Diagnosis Weakness of both lower extremities documented in this encounter [facility]* Diagnosis Encounter for screening mammogram for malignant neoplasm of breast- Primary documented in this encounter [facility]* Diagnosis Weakness of both lower extremities- Primary documented in this encounter [facility]* Diagnosis Weakness of both lower extremities- Primary documented in this encounter [facility]* Diagnosis Weakness of both lower extremities- Primary [facility] Diagnosis Weakness of both lower extremities- Primary documented in this encounter [facility]* Diagnosis Weakness of both lower extremities- Primary documented in this encounter [facility]* Diagnosis Weakness of both lower extremities- Primary documented in this encounter 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 ACP-Advance Directive ACP-Power of Quality Control Inspector Heading Latest Code Status on File Code Status Date Activated Date Inactivated Comments Full Code 11/30/2019 6:17 AM 11/30/2019 11:34 AM Documents on File Type Date 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 [address] Specialty Diagnoses / Procedures Referred By Contac t Referred To Contact Radiology Diagnoses Mastalgia Procedures US Breast Limited Right David Hoyt MD [address] [place] [address] Referral ID Status Reason Start Date Expiration Date Visits Re quested Visits Authorized [id number] Open 05/09/2021 05/09/2022 1 1 Specialty Diagnoses / Procedures Referred By Contac t Referred To Contact Physical Therapy Diagnoses Weakness of both lower extremities Procedures NV OFFICE/OUTPATIENT NEW HIGH MDM 60-74 MINUTES David Hoyt MD [address] [place] [address] Referral ID Status Reason Start Date Expiration Date Visits Requested Visits Authorized [id number] Authorized Eval and Treat 06/12/2022 12/09/2022 99 99 Scheduling Instructions [facility] Eval and treat for strength and [...] do not hesitate to call theoffice at [phone] for any questions. After hours, the same number will allow you to reach the on-call surgeon. ? Call the office to schedule your post-operative appointment with Dr. Naranjo or PA/FIELD INTERVIEWER for 2 weeks if not already scheduled. [...] several days. Please call the office at [phone] for any questions and too make your [...] PHASE II . ALERT SPONT RESP. WITH SENIOR SECURITY ENGINEER IN ATTENDANCE documented in this encounter Additional Source Comments INFORMATION SOURCE (unrecogn ized section and content) DATE CREATED AUTHOR AUTHOR'S ORGANIZ ATION 03/30/2018 [facility] DATE CREATED AUTHOR AUTHOR'S ORGANIZ ATION 09/09/2018 [facility] DATE CREATED AUTHOR AUTHOR'S ORGANIZ ATION 09/12/2018 [facility] DATE CREATED AUTHOR AUTHOR'S ORGANIZ ATION 05/20/2020 [facility] DATE CREATED AUTHOR AUTHOR'S ORGANIZ ATION 03/20/2021 [facility] DATE CREATED AUTHOR AUTHOR'S ORGANIZ ATION 05/24/2021 [facility] DATE CREATED AUTHOR AUTHOR'S ORGANIZ ATION 02/06/2023 [facility] Reason for Visit (unrecogniz ed section and content) Reason Comments Med Refill Reason Comments Medicare Annual Wellness Visit Subsequen t Blood Work Health Maintenance DEXA-wantsCOVID #4 h ad this, will bring cardHep B vaccine-discuss with PCPHep C screen-wants Specialty Diagnoses / Procedures Referred By Contalberto t Referred To Contact Physical Therapy Diagnoses Weakness of both lower extremities Procedures [place] OFFICE/OUTPATIENT [facility] MDM 60-74 MINUTES David Hoyt MD 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 Relationship Specialty Start Date End Date David Hoyt MD [address] [place] [address] [address] PCP - General 02/22/16 Fence Machine Operator Relationship Specialty Start Date End Date David Hoyt MD [address] [place], [place] [address], [place] [address] PCP - General 07/11/18 Fence Machine Operator Relationship Specialty Start Date End Date David Hoyt MD [address] [place], [place] [address] [id number] PCP - General 07/11/18 Fence Machine Operator Relationship Specialty Start Date End Date David Hoyt MD [address] [place], [place] [address], [place] [address] PCP - General 07/11/18 Fence Machine Operator Relationship Specialty Start Date End Date David Hoyt MD [address] [place], [place] [address] [id number] PCP - General 07/11/18 Fence Machine Operator Relationship Specialty Start Date End Date David Hoyt MD [address] [place], [place] [address], [place] [address] PCP - General 07/11/18 Fence Machine Operator Relationship Specialty Start Date End Date David Hoyt MD [address] [place], [place] [address], [place] [address] PCP - General 07/11/18 Fence Machine Operator Relationship Specialty Start Date End Date David Hoyt MD [address] [place], [place] [address] [address] PCP - General 07/11/18 Fence Machine Operator Relationship Specialty Start Date End Date David Hoyt MD [address] [facility] [place] [address] PCP - General 07/11/18 Fence Machine Operator Relationship Specialty Start Date End Date David Hoyt MD [address] [facility] [place] [address] PCP - General 07/11/18 Fence Machine Operator Relationship Specialty Start Date End Date David Hoyt MD [address] [place] [address] PCP - General 07/11/18 Fence Machine Operator Relationship Specialty Start Date End Date David Hoyt MD [address] [place] [address] PCP - General 07/11/18 Fence Machine Operator Relationship Specialty Start Date End Date David Hoyt MD [address] [place] [address] [place] [address] PCP - General 07/11/18 Fence Machine Operator Relationship Specialty Start Date End Date David Hoyt MD [address] [place] [address] [place] [address] PCP - General 07/11/18 Fence Machine Operator Relationship Specialty Start Date End Date David Hoyt MD [address] [place] [address] [place] [address] PCP - General 07/11/18 Fence Machine Operator Relationship Specialty Start Date End Date David Hoyt MD [address] [place] [address], [place] [address] PCP - General 07/11/18 FOR RECORDS PERTAINING [...] BE BASED ON THE PRIMARY CLINICAL RECORDS. [employer] provides no warranty or guarantee of the accuracy or completeness of information in this document.
[2023-04-10 07:58] VITALS: BP 138/78
== END 2023-04-10 07:59 | disposition home or self-care (01) ==
LOC: EN 07:13 → AC 07:14
PROVIDERS: PCP Family Medicine; Referring Provider Family Medicine; Visit Provider Internal Medicine Gastroenterology
PROC: 0DJ08ZZ Inspection of Upper Intestinal Tract, Via Natural or Artificial Opening Endoscopic (ICD-10-PCS; CPT 43235; principal; 2023-04-10 06:25)
DX: K44.9 Diaphragmatic hernia without obstruction or gangrene (principal); K21.9 Gastro-esophageal reflux disease without esophagitis; Z79.899 Other long term (current) drug therapy; I10 Essential (primary) hypertension; E78.5 Hyperlipidemia, unspecified; Z87.19 Personal history of other diseases of the digestive system
CPT/HCPCS: 43235; J7120; J2405

== ENCOUNTER → 2023-04-15 | Outpatient (CLI) | payer MEDICARE, BC, SELFPAY ==
--- NOTE | 2023-04-15 15:00 | BD_ITS ---
STUDY: DUAL ENERGY X-RAY ABSORPTIOMETRY / DXA REASON FOR EXAM: Female, 73 years old. N95.9 TECHNIQUE: Bone Mineral Density (BMD) measurements of lumbar spine and bilateral hips were obtained. COMPARISON: None. FINDINGS: Lumbar Spine (L1-L4): g/cm2 (0.940) / T-score (-1.0) / Z-score (1.3) Findings are suggestive of osteopenia with a low fracture risk. Left Femur Total: g/cm2 (0.830) / T-score (-0.9) / Z-score (0.8) Left Femoral Neck: g/cm2 (0.621) / T-score (-2.1) / Z-score (-0.1) Right Femur Total: g/cm2 (0.820) / T-score (-1.0) / Z-score (0.7) Right Femoral Neck: g/cm2 (0.680) / T-score (-1.5) / Z-score (0.5) BD/Dexa Bone Density Study IMPRESSION: The patient is considered osteopenic as outlined below according to World Tee Organization (WHO) criteria with a high fracture risk. Reference Information: The T-score is the number of standard deviations above or below the standard which is normal for young adults at their peak bone mineral density. The World Health Organization (WHO) interprets the T-scores as follows: Above -1 Normal bone density Between -1 and -2.5 Osteopenia Equal to / or below -2.5 Osteoporosis As a practical clinical guideline, osteopenia may be graded as follows: Mild -1 through -1.5 Moderate -1.6 through -2.0 Severe -2.1 through -2.4 The Z-score is the number of standard deviations above or below age-matched controls. A Z-score of less than -1.5 would be considered abnormal. References: 1. NIH Osteoporosis and Related Bone Diseases www osteo.org 2. International Society for Clinical Densitometry www iscd.org 3. National Osteoporosis Foundation www nof.org Electronically Signed: Richard Reyna MD at 14:32 EDT ,
== END | disposition home or self-care (01) ==
LOC: OPBD 14:52
PROVIDERS: PCP Family Medicine; Referring Provider Family Medicine; Visit Provider Family Medicine
DX: N95.9 Unspecified menopausal and perimenopausal disorder (principal)
CPT/HCPCS: 77080

== ENCOUNTER 2023-05-09 08:00 | Day surgery (SDC) | payer MEDICARE, BC, SELFPAY ==
[2023-05-09] MEDS: Lidocaine Jelly 2% 20 ML Syringe (URO-JET) 1 APPLIC (08:33)
[2023-05-09 08:38] VITALS: BP 111/78; PULSE 65; RESP 16; TEMP 36.6; O2SAT 96
== END 2023-05-09 23:59 | disposition home or self-care (01) ==
LOC: EN 08:04 → AC 08:10 → EN 08:12
PROVIDERS: PCP Family Medicine; Referring Provider Family Medicine; Visit Provider Internal Medicine Gastroenterology
PROC: F00ZJWZ Instrumental Swallowing and Oral Function Assessment using Swallowing Equipment (ICD-10-PCS; CPT 43235; principal; 2023-05-09 07:55)
DX: K22.2 Esophageal obstruction (principal)
CPT/HCPCS: 91010

== ENCOUNTER → 2023-07-08 | Outpatient (CLI) | payer MEDICARE, BC, SELFPAY ==
[2023-07-08 18:41] LABS: Thyroid Stim Hormone (TSH) 4.08 uIU/mL (0.358-3.74)
== END | disposition home or self-care (01) ==
LOC: MFPLAB 15:57
PROVIDERS: PCP Family Medicine; Visit Provider Family Medicine
DX: E66.9 Obesity, unspecified (principal)
CPT/HCPCS: 36415; 84443

== ENCOUNTER 2023-08-31 12:32 | Emergency (ER) | payer MEDICARE, BC, SELFPAY ==
[2023-08-31 12:34] VITALS: BP 148/82; PULSE 60; RESP 16; TEMP 36.7; O2SAT 93; BMI 37.3
--- NOTE | 2023-08-31 12:40 | ED.VIS.LOWEX ---
HPI <MANOLO Oh - Last Filed: 08/31/23 13:40> History of Present Illness Chief Complaint: Lower Extremity Injury Narrative Narrative: Patient presenting today due to right ankle pain that started this afternoon after she stood up out of a chair while at [employer] and inverted her right ankle. She is having difficulty ambulating due to the pain. She denies any other injury. PFSH <MANOLO Oh - Last Filed: 08/31/23 13:40> PFSH Medical History History of perforation of tympanic membrane Loss of hearing Wears hearing aid Wears glasses Cancer Alcohol use Arthritis Anemia Pulmonary embolism DVT (deep venous thrombosis) Back pain History of hiatal hernia History of IBS Gastric reflux Shortness of breath on exertion Former smoker Leg cramps Cardiology follow-up encounter History of stress test History of irregular heartbeat Depression HTN (hypertension) HLD (hyperlipidemia) Home Medications ?Medication ?Instructions ?Recorded ?Last Taken ?Type ergocalciferol (vitamin D2) 1,250 1,250 mcg PO MO 04/07/23 Unknown History mcg (50,000 unit) capsule fluoxetine 40 mg capsule 40 mg PO DAILY 04/07/23 Unknown History irbesartan 150 mg tablet 150 mg PO DAILY 04/07/23 Unknown History rosuvastatin 40 mg tablet 40 mg PO QHS 04/07/23 Unknown History omeprazole 40 mg capsule,delayed 40 mg PO BID #60 caps 06/02/23 Unknown Rx release Allergy/AdvReac Type Severity Reaction Status Date / Time Penicillins Allergy Intermediate Hives Verified 04/07/23 12:36 adhesive tape AdvReac Intermediate Other Verified 04/07/23 12:36 erythromycin base AdvReac Intermediate Upset Verified 04/07/23 12:36 Stomach Surgical History Hx of colonoscopy Hx of esophagogastroduodenoscopy Hx of bladder repair surgery History of tonsillectomy and adenoidectomy Hx of hysterectomy with oophorectomy Hx of bilateral cataract extraction Hx of left mastectomy Social History Smoking Status: Former smoker ROS <MANOLO Oh - Last Filed: 08/31/23 13:40> ROS ED Constitutional Constitutional ED: Denies chills or fever(s) Cardiovascular Cardiovascular: Denies chest pain Respiratory/Chest Respiratory/Chest: Denies cough or dyspnea Gastrointestinal Gastrointestinal: Denies abdominal pain, nausea or vomiting Musculoskeletal Musculoskeletal: Reports arthralgias Integumentary Denies Abrasions Neurologic Neurologic: Denies paresthesias EXAM <MANOLO Oh - Last Filed: 08/31/23 13:40> Physical Exam Const Vital Signs: 08/31/23 12:34 Temperature 98.0 F Temperature Source Oral Pulse Rate 60 Respiratory Rate 16 Blood Pressure 148/82 H Blood Pressure Mean 104 Pulse Ox 93 Oxygen Delivery Method Room Air Positive well nourished, well developed and no apparent distress General Appearance ED: well developed HEENT Reports normocephalic and head/scalp atraumatic Mouth ED: Yes moist mucous membranes normal Eyes PERRL and EOMs intact bilaterally Neck full ROM and supple Chest Wall inspection of chest normal Resp normal respiratory effort and clear to auscultation bilaterally Cardio regular rate and regular rhythm Back/Spine normal ROM and normal to inspection Extremity normal to inspection and full ROM Extremity Narrative: Slight swelling to the right lateral malleolus limited ROM to the right ankle due to pain, right DP pulse 2+, good capillary refill, sensation intact. No pain to the proximal fibula or to the right foot. Neuro oriented x3, CN's II-XII intact bilaterally, moves all extremities, no focal motor deficits and no sensory deficits noted Sensorium / Orientation: awake and alert Psych mental status grossly normal and thought process normal Skin no rashes or lesions noted and no wounds <Dr. Asa Kim MD - Last Filed: 08/31/23 13:31> Physical Exam Const Vital Signs: 08/31/23 12:34 Temperature 98.0 F Temperature Source Oral Pulse Rate 60 Respiratory Rate 16 Blood Pressure 148/82 H Blood Pressure Mean 104 Pulse Ox 93 Oxygen Delivery Method Room Air MDM <MANOLO Oh - Last Filed: 08/31/23 13:40> [facility] Narrative Medical decision making narrative: Patient presenting with right ankle pain after inverting her right ankle while standing up out of a chair. X-ray will be obtained to rule out fracture. She will be given Tylenol for pain. X-ray does not show any acute fracture. She will be given a Aircast, RICE instructions discussed. She is able to ambulate, she will be discharged in stable condition. I have personally performed a face to face assessment of the patient and have reviewed the KARISHMA Note. I performed a substantive portion of the visit including all aspects of the following. My holt findings include: History is 73-year-old female twisted her right ankle fell. Complaining of right ankle pain primarily laterally. No other injuries. Exam is [well-appearing 73-year-old female. Vital signs stable afebrile. H EENT exam unremarkable atraumatic. Nontender. Neck nontender. Lungs clear. Heart regular rhythm no murmur. Chest wall ribs nontender. Abdomen soft nontender. Pelvic girdle intact. Left lower extremity both upper extremities are nontender normal range of motion. Right hip and right knee are nontender. Right lateral malleolus tender and swollen. Medial malleolus nontender nonswollen. Achilles tendon intact. Limited dorsi and plantarflexion due to discomfort. Foot is nontender neurovascular intact. Right knee and right hip are unremarkable. She is awake and alert.] Medical Decision Making [73-year-old fell right ankle injury x-rays were obtained. Shows no fracture. Treated as an ankle sprain. Discharged with an Aircast.] Other additions or changes: [None] Radiography X-Ray: Read by ED Physician Diagnostic Testing: Clinical Impression(s) from Imaging Studies Ankle X-Ray 08/31/23 12:45 IMPRESSION: No demonstrated fracture or suspicious osseous lesion Electronically Signed: Noé Ahmadi MD at 13:23 EDT Reading Location ID and State: [address] [place] [address] , Service support , <Dr. Asa Kim MD - Last Filed: 08/31/23 13:31> [facility] Narrative Medical decision making narrative: Patient presenting with right ankle pain after inverting her right ankle while standing up out of a chair. X-ray will be obtained to rule out fracture. She will be given Tylenol for pain. I have personally performed a face to face assessment of the patient and have reviewed the KARISHMA Note. I performed a substantive portion of the visit including all aspects of the following. My holt findings include: History is 73-year-old female twisted her right ankle fell. Complaining of right ankle pain primarily laterally. No other injuries. Exam is [well-appearing 73-year-old female. Vital signs stable afebrile. H EENT exam unremarkable atraumatic. Nontender. Neck nontender. Lungs clear. Heart regular rhythm no murmur. Chest wall ribs nontender. Abdomen soft nontender. Pelvic girdle intact. Left lower extremity both upper extremities are nontender normal range of motion. Right hip and right knee are nontender. Right lateral malleolus tender and swollen. Medial malleolus nontender nonswollen. Achilles tendon intact. Limited dorsi and plantarflexion due to discomfort. Foot is nontender neurovascular intact. Right knee and right hip are unremarkable. She is awake and alert.] Medical Decision Making [73-year-old fell right ankle injury x-rays were obtained. Shows no fracture. Treated as an ankle sprain. Discharged with an Aircast.] Other additions or changes: [None] History & Record Review Discussion w/independent historian: Patient and Family Radiography Diagnostic Testing: Clinical Impression(s) from Imaging Studies Ankle X-Ray 08/31/23 12:45 IMPRESSION: No demonstrated fracture or suspicious osseous lesion Electronically Signed: Noé Ahmadi MD at 13:23 EDT Reading Location ID and State: [facility] / [place] , Service support , Right ankle x-ray, 3 views, interpreted by myself and the radiologist shows no acute fracture. No dislocation. Discharge Plan Triage Chief Complaint: Lower Extremity Injury ED Midlevel Provider: Nydia Lpoez ED Provider: Asa Kim Dx/Rx/DC Orders Clinical Impression: Right ankle sprain Instructions: ED Ankle Sprain (Adult) Prescriptions: No Action rosuvastatin 40 mg tablet 40 mg PO QHS Patient Comments: Take 1 tablet (40 mg) by mouth Nightly. irbesartan 150 mg tablet 150 mg PO DAILY Patient Comments: TAKE 1 TABLET BY MOUTH ONCE DAILY EVERY MORNING fluoxetine 40 mg capsule 40 mg PO DAILY Patient Comments: TAKE 1 CAPSULE BY MOUTH EVERY MORNING ergocalciferol (vitamin D2) 1,250 mcg (50,000 unit) capsule 1,250 mcg PO MO Patient Comments: TAKE 1 CAPSULE BY MOUTH ONCE A WEEK omeprazole 40 mg capsule,delayed release(DR/EC) 40 mg PO BID Qty: 60 1RF Primary Care Provider: Tesfaye Gr Referrals: Tesfaye Gr MD [Primary Care Provider] - Chase Alarcon MD [Med Staff - Active Staff] - 1 Week if not improving Activity Restrictions/Additional Instructions: Ice your ankle 20 minutes at a time several times a day for the next 2 days to help with pain and swelling. You can take Tylenol for pain as needed. Follow-up with your PCP or orthopedics in 1 week if no improvement. Print Language: Andorran Disposition Disposition: Home, Self Care
--- NOTE | 2023-08-31 12:45 | RAD_ITS ---
STUDY: X-RAY - RIGHT ANKLE REASON FOR EXAM: Female, 73 years old. injury TECHNIQUE: 3 view(s) of the ankle. COMPARISON: None. FINDINGS: Normal visualized distal tibia and fibula. Normal medial and lateral malleoli. Normal tibiotalar articulation and ankle mortise. Subtle calcific densities noted inferior to the lateral malleolus but no donor site is noted these are likely sequela from previous trauma Normal visualized talus and calcaneus. The visualized subtalar, talonavicular, calcaneocuboid and tarsal articulations are normal. The soft tissue structures are unremarkable. RAD/Ankle min 3 Views IMPRESSION: No demonstrated fracture or suspicious osseous lesion Electronically Signed: Noé Ahmadi MD at 13:23 EDT ,
[2023-08-31] MEDS: Acetaminophen 325 MG Tablet 650 MG PO (12:49)
[2023-08-31 13:36] VITALS: BP 138/87; PULSE 87; RESP 14; TEMP 36.1; O2SAT 98
== END 2023-08-31 13:50 | disposition home or self-care (01) ==
PROVIDERS: Emergency Provider Emergency Medicine; PCP Family Medicine; Visit Provider Emergency Medicine
DX: S93.401A Sprain of unspecified ligament of right ankle, initial encounter (principal); X50.1XXA Overexertion from prolonged static or awkward postures, initial encounter; Y93.89 Activity, other specified; Y99.8 Other external cause status; Y92.22 Religious institution as the place of occurrence of the external cause; I10 Essential (primary) hypertension; Z79.899 Other long term (current) drug therapy; Z87.891 Personal history of nicotine dependence
CPT/HCPCS: 73610; 99283

== ENCOUNTER 2024-01-16 16:28 | Emergency (ER) | payer MEDICARE, BC, SELFPAY ==
[2024-01-16] VITALS (11 sets, daily range): BP systolic 115–158; BP diastolic 67–104; PULSE 69–88; RESP 15–21; TEMP 36.3–36.9; O2SAT 90–98; BMI 37.5
--- NOTE | 2024-01-16 16:45 | CT_ITS ---
INDICATION: Trauma EXAMINATION: CT BRAIN - CT Head or Brain W/O Contrast Injection TECHNIQUE: Multiple axial images were obtained of the head without intravenous contrast. A radiation dose optimization technique was used for this scan. IV Contrast dosage and agent: None. RADIATION DOSAGE (If Supplied By Facility): CTDIvol = ( 44.99 ) mGy, DLP = ( 914.22 ) mGycm COMPARISON: No relevant prior examinations for comparison FINDINGS: HEMISPHERES: 1. The cerebral parenchyma, ventricular system, subarachnoid spaces have normal configuration and density. There is a normal gyral pattern. There is normal malcolm/white differentiation. No midline shift.. 2. There are mild involutional changes and chronic deep white matter changes. There is a prominent sublenticular cyst versus dilated perivascular space measuring 1.4 x 1.1 cm. 3. No intraparenchymal mass, hemorrhage, or acute territorial infarct. CEREBELLUM - BRAINSTEM: The cerebellum, brainstem, basilar and suprasellar cisterns have normal appearance. No Chiari malformation. PITUITARY: Partial empty sella. No sellar or suprasellar masses.. CSF SPACES: Appropriate for age. No hydrocephalus. Basal cisterns are patent. VESSELS: 1. Moderate to extensive carotid vascular calcifications bilaterally. 2. No hyperdense vascular signs noted.. ORBITS AND PARANASAL SINUSES: 1. Normal appearance of the bony orbits. Normal appearance of the globes and retrobulbar soft tissues.. 2. Paranasal sinuses are clear. BONY ELEMENTS: Bony elements of the cranial vault, facial skeleton and skull base have normal appearance. SCALP AND SOFT TISSUES: Normal appearance of the soft tissues of the scalp and the visualized face OTHER: None ASPECTS Score for Acute Strokes: 10 CT/Brain/Head without Contrast IMPRESSION: 1. No acute cranial evidence of acute traumatic injury. 2. Diffuse involutional change and chronic microvascular deep white matter disease. 3. Prominent LEFT sublenticular cyst versus dilated vascular space measuring 1.4 x 1.1 cm. 4. No intracranial mass, hemorrhage or acute territorial infarct. 5. No fractures noted. 6. No radiographically significant sinus disease.. Electronically Signed: Jair Rubio MD at 18:01 EST ,
--- NOTE | 2024-01-16 16:45 | CT_ITS ---
INDICATION: Trauma EXAMINATION: CT CERVICAL SPINE - CT Spine Cervical W/O Contrast Injection TECHNIQUE: Helically acquired images were obtained of the cervical spine. 2D reformatted images were reviewed. A radiation dose optimization technique was used for this scan. Noncontrast images obtained. IV Contrast dosage and agent: None. Radiation Dose (provided by facility) CTDIvol (25.24 ) mGy, DLP ( 477.37) mGy-cm COMPARISON: : No relevant prior comparison study available FINDINGS: VERTEBRAE: No fracture or traumatic subluxation. No discrete lytic or blastic abnormality. Normal alignment. Normal craniocervical junction and cervicothoracic junction. Normal appearance of the odontoid process. DISCS and SPINAL CANAL: Disc spaces are maintained with the exception of mild disc space narrowing at C5-6 and C6-7. Mild marginal osteophyte formation present. No evidence however of acute disc herniations. Chronic foraminal narrowing is present at these levels greater on LEFT than RIGHT due to uncovertebral joint hypertrophic changes most notable at C5-6. No critical canal stenosis. NECK SOFT TISSUES: No prevertebral soft tissue swelling. There is no cervical adenopathy. Multiple coarse calcifications present in the cervical carotid vessels bilaterally. LUNG APICES: Clear. CT/Spine Cervical without Contras IMPRESSION: 1. No evidence of acute cervical spinal fracture or spondylolisthesis. No acutely acquired canal stenosis. 2. Chronic cervical spondylosis most notable at C5-6, and a chronic foraminal narrowing greater on the LEFT than RIGHT at C5-6. Electronically Signed: Jair Rubio MD at 18:03 EST ,
--- NOTE | 2024-01-16 16:45 | EKG12_ITS ---
Test Reason : Blood Pressure : */* mmHG Vent. Rate : 79 BPM Atrial Rate : 79 BPM P-R Int : 146 ms QRS Dur : 90 ms QT Int : 382 ms P-R-T Axes : 56 53 57 degrees QTcB Int : 438 ms Normal sinus rhythm Normal ECG Confirmed by Wallace Pappas ([id number]), communications editor KATLYN PEDRO ([id number]) on 01/19/2024 6:44:33 AM Referred By: Confirmed By: Wallace Pappas
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
[2024-01-16] MEDS: Morphine 4 MG/ML Syringe IV (17:05)
[2024-01-16] MEDS: Ondansetron 4 MG/2 ML Vial IV ×2 (17:05→21:17)
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
[2024-01-16 17:17] LABS: Absolute Lymphocyte Count 1.45 X10^3/uL (0.83-4.51); Basophil# 0.06 X10^3/uL; Basophil% 0.5 % (0-1); Eosinophil# 0.14 X10^3/uL; Eosinophils% 1.2 % (0-5); Hematocrit 42.5 % (37-47); Hemoglobin 13.3 g/dL (12.0-15.0); Lymphocyte # 1.45 X10^3/ul (0.83-4.51); Lymphocyte % 12.6 % (19-41); Mean Corp Hgb Conc 31.3 g/dL (32-36); Mean Corpuscular Hgb 27.8 pg (27.0-32.0); Mean Corpuscular Volume 88.9 fL (81-99); Mean Platelet Vol. 11.5 fl (6.2-12.0); Monocyte# 0.74 X10^3/uL; Monocyte% 6.4 % (0-10); NRBC Flagged by Analyzer 0 % (0-5); Neutrophil # 8.98 X10^3/uL (2.7-7.7); Neutrophil % 78.1 % (47-70); Platelet Count 189 K/mm3 (150-450); RBC Distribution Width CV 13.5 % (11.6-14.6); Red Blood Count 4.78 M/mm3 (4.2-5.4); White Blood Count 11.5 K/mm3 (4.4-11.0)
--- NOTE | 2024-01-16 17:30 | RAD_ITS ---
INDICATION: pain EXAMINATION/TECHNIQUE: X-RAY - RIGHT XR Wrist Min 3 Views 3 VIEWS COMPARISON: No relevant prior comparison study available FINDINGS: SOFT TISSUES: No soft tissue swelling or gas. No radiopaque foreign body. BONES/JOINTS: No acute fracture or subluxation.. Normal alignment. Preservation of the joint space.. No sclerotic or destructive changes observed. RAD/Wrist min 3 Views IMPRESSION: 1. No evidence fracture, malalignment or focal bony or joint space abnormality. Electronically Signed: Jair Rubio MD at 19:03 EST ,
[2024-01-16 17:47] LABS: AST(SGOT) 33 U/L (15-37); Alanine Aminotransfer ALT/SGPT 27 U/L (13-56); Albumin, Serum 2.8 g/dL (3.2-5.0); Alkaline Phosphatase 83 U/L (45-117); Anion Gap 5 (5-15); BUN 8 mg/dL (7-18); BUN/Creat Ratio 10.8 RATIO (10-20); Bilirubin, Direct < 0.05 mg/dL (0.00-0.30); Chloride 110 mmol/L (98-107); Creatinine, Serum 0.74 mg/dL (0.55-1.02); EST Glomerular Filtration Rate 82 mL/min (>60); Est Glom Filt Rate - Afr Amer 99 mL/min (>60); Estimated Creatinine Clearance 75.75 ml/min; Globulin 3.6 g/dL (2.2-4.2); Glucose 111 mg/dL (74-106); Lipase 26 U/L (13-75); Potassium 4.2 mmol/L (3.5-5.1); Protein, Total 6.4 g/dL (6.4-8.2); Sodium Level 137 mmol/L (136-145); Troponin-I HS 7 pg/mL (3.0-54.0)
[2024-01-16 18:32] LABS: Bacteria 0 SEEN /hpf (None Seen); Mucous, Urine 0 SEEN /hpf (<or=2+); Red Blood Cells-Urine 0 SEEN /hpf (0-5)
[2024-01-16 18:37] LABS: Color, Urine Straw (Yellow); Glucose, Dipstick Normal (Normal); Ketone-Dipstick Negative (Negative); Leukocyte Esterase-Dipstick Negative /ul (Negative); Nitrite-Dipstick Negative (Negative); Occult Blood-Urine Negative /ul (Negative); Protein-Dipstick Negative (Negative); Urine Bilirubin Dipstick Negative (Negative); Urine Clarity Clear (Clear); Urine Urobilinogen Normal (Normal)
[2024-01-16] MEDS: Ketorolac 30 MG/ML Syringe IV (18:38)
[2024-01-16 18:58] LABS: Squamous Epithelial Cells - UA 0-5 SEEN /hpf (5-10); White Blood Cells 0-5 SEEN /hpf (0-5)
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
[2024-01-16] MEDS: fentaNYL 100 MCG/2 ML Ampul 50 MCG IV (21:17)
== END 2024-01-17 01:00 | disposition short-term general hospital (02) ==
PROVIDERS: Physician Assistant; Emergency Provider Surgery; PCP Family Medicine; Visit Provider Surgery
DX: M54.9 Dorsalgia, unspecified (principal); R09.02 Hypoxemia; I10 Essential (primary) hypertension; M25.531 Pain in right wrist; Z90.710 Acquired absence of both cervix and uterus; E78.5 Hyperlipidemia, unspecified; Z87.891 Personal history of nicotine dependence; M25.562 Pain in left knee; V49.40XA Driver injured in collision with unspecified motor vehicles in traffic accident, initial encounter; W22.10XA Striking against or struck by unspecified automobile airbag, initial encounter; F32.A Depression, unspecified; Z79.899 Other long term (current) drug therapy; K21.9 Gastro-esophageal reflux disease without esophagitis; Z98.41 Cataract extraction status, right eye; Z98.42 Cataract extraction status, left eye; Z90.12 Acquired absence of left breast and nipple; R07.81 Pleurodynia
CPT/HCPCS: 70450; 71260; 72125; 73110; 73564; 74177; 80048; 80076; 81001; 83690; 84484; 85025; 93005; 96374; 96375; 96376; 99285; P9612; Q9967; A4216; J2405

== ENCOUNTER 2024-01-21 15:52 | Inpatient (IN) | payer MEDICARE, BC, SELFPAY ==
[2024-01-21 06:00] VITALS: BMI 34.8
[2024-01-21 16:38] VITALS: BP 134/74; PULSE 74; RESP 16; TEMP 36.4; O2SAT 96; BMI 33.8
[2024-01-21 17:05] VITALS: BP 134/74; PULSE 74; RESP 16; TEMP 36.4; O2SAT 96
[2024-01-21] MEDS: oxyCODONE 5 MG Tablet PO (18:14)
[2024-01-21 19:25] VITALS: PULSE 82; RESP 18; O2SAT 93
[2024-01-21] MEDS: Ipratropium/Albuterol Sulfate 3 ML AMPUL.NEB INHALATION (19:25)
[2024-01-21] MEDS: Gabapentin 100 MG Capsule PO (21:11)
[2024-01-21] MEDS: Senna/Docusate Sodium 1 Tablet 2 TABLET PO (21:11)
[2024-01-21] MEDS: Acetaminophen 500 MG Tablet 1000 MG PO (21:11)
[2024-01-21] MEDS: tiZANidine HCl 2 MG Tablet PO (21:12)
[2024-01-21] MEDS: Atorvastatin Calcium 80 MG Tablet PO (21:12)
[2024-01-22] MEDS: oxyCODONE 5 MG Tablet PO ×3 (05:06→18:37)
[2024-01-22] MEDS: Acetaminophen 500 MG Tablet 1000 MG PO ×3 (05:07→20:30)
[2024-01-22] MEDS: Gabapentin 100 MG Capsule PO ×3 (05:07→20:31)
[2024-01-22] MEDS: Enoxaparin 40 MG/0.4 ML Syringe SC (05:07)
[2024-01-22 05:15] VITALS: BP 143/83; PULSE 81; RESP 15; TEMP 36.6; O2SAT 92
[2024-01-22 05:53] LABS: Absolute Lymphocyte Count 1.16 X10^3/uL (0.83-4.51); Absolute Neutrophil Count 3.4 X10^3/uL (2.0-7.7); Basophil# 0.04 X10^3/uL; Basophil% 0.7 % (0-1); Eosinophil# 0.26 X10^3/uL; Eosinophils% 4.8 % (0-5); Hematocrit 32.5 % (37-47); Hemoglobin 10.4 g/dL (12.0-15.0); Lymphocyte # 1.16 X10^3/ul (0.83-4.51); Lymphocyte % 21.4 % (19-41); Mean Corpuscular Hgb 27.7 pg (27.0-32.0); Mean Corpuscular Volume 86.4 fL (81-99); Mean Platelet Vol. 11.3 fl (6.2-12.0); Monocyte# 0.52 X10^3/uL; Monocyte% 9.6 % (0-10); NRBC Flagged by Analyzer 0 % (0-5); Neutrophil % 62.6 % (47-70); Platelet Count 159 K/mm3 (150-450); RBC Distribution Width SD 44.1 fl (35.1-43.9); Red Blood Count 3.76 M/mm3 (4.2-5.4); White Blood Count 5.4 K/mm3 (4.4-11.0)
[2024-01-22 06:29] LABS: ALB/GLOB Ratio 0.7 RATIO (0.9-2.4); AST(SGOT) 64 U/L (15-37); Alanine Aminotransfer ALT/SGPT 43 U/L (13-56); Albumin, Serum 2.4 g/dL (3.2-5.0); Alkaline Phosphatase 69 U/L (45-117); Anion Gap 5 (5-15); BUN 10 mg/dL (7-18); BUN/Creat Ratio 18.1 RATIO (10-20); Calcium,Total 8.8 mg/dL (8.5-10.1); Chloride 100 mmol/L (98-107); Creatinine, Serum 0.55 mg/dL (0.55-1.02); EST Glomerular Filtration Rate 114 mL/min (>60); Est Glom Filt Rate - Afr Amer 138 mL/min (>60); Estimated Creatinine Clearance 74.18 ml/min; Globulin 3.5 g/dL (2.2-4.2); Glucose 99 mg/dL (74-106); Magnesium 2.1 mg/dL (1.6-2.6); Phosphorus 2.7 mg/dL (2.5-4.9); Potassium 3.7 mmol/L (3.5-5.1); Protein, Total 5.9 g/dL (6.4-8.2); Sodium Level 135 mmol/L (136-145)
[2024-01-22] MEDS: Senna/Docusate Sodium 1 Tablet 2 TABLET PO (08:10)
[2024-01-22] MEDS: Pantoprazole Sodium 40 MG Tablet PO (08:10)
[2024-01-22] MEDS: tiZANidine HCl 2 MG Tablet PO ×3 (08:10→20:30)
[2024-01-22] MEDS: Losartan Potassium 50 MG Tablet PO (08:10)
[2024-01-22] MEDS: Fluoxetine HCl 40 MG CAPSULE PO (08:10)
[2024-01-22] MEDS: Lidocaine 5% Patch 1 PATCH TOPICAL (08:11)
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
[2024-01-22 16:40] VITALS: PULSE 65; RESP 18; O2SAT 96
[2024-01-22] MEDS: Ipratropium/Albuterol Sulfate 3 ML AMPUL.NEB INHALATION (16:40)
[2024-01-22 17:15] VITALS: BP 108/61; PULSE 66; RESP 16; TEMP 36.8; O2SAT 94
[2024-01-22 20:00] VITALS: PULSE 66; RESP 18; O2SAT 94
[2024-01-22] MEDS: Atorvastatin Calcium 80 MG Tablet PO (20:30)
[2024-01-22] MEDS: guaiFENesin 600 MG Tablet PO (20:30)
[2024-01-22] MEDS: guaiFENesin Dm 10 ML UDC PO (20:31)
[2024-01-22 20:50] VITALS: O2SAT 90
[2024-01-23] MEDS: Acetaminophen 500 MG Tablet 1000 MG PO ×3 (05:24→21:47)
[2024-01-23] MEDS: Gabapentin 100 MG Capsule PO ×3 (05:24→21:48)
[2024-01-23] MEDS: Enoxaparin 40 MG/0.4 ML Syringe SC (05:24)
[2024-01-23] MEDS: tiZANidine HCl 2 MG Tablet PO ×3 (05:26→21:48)
[2024-01-23 06:00] VITALS: BP 154/94; PULSE 82; RESP 18; TEMP 36.6; O2SAT 92
[2024-01-23] MEDS: oxyCODONE 5 MG Tablet PO ×4 (06:01→21:51)
[2024-01-23 07:30] VITALS: O2SAT 91
[2024-01-23 09:23] VITALS: BP 150/70; PULSE 76
[2024-01-23] MEDS: Lidocaine 5% Patch 1 PATCH TOPICAL (09:24)
[2024-01-23] MEDS: guaiFENesin 600 MG Tablet PO ×2 (09:26→21:48)
[2024-01-23] MEDS: Senna/Docusate Sodium 1 Tablet 2 TABLET PO ×2 (09:26→21:48)
[2024-01-23] MEDS: Pantoprazole Sodium 40 MG Tablet PO (09:26)
[2024-01-23] MEDS: Losartan Potassium 50 MG Tablet PO ×2 (09:26→12:48)
[2024-01-23] MEDS: Fluoxetine HCl 40 MG CAPSULE PO (09:26)
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
[2024-01-23 12:51] VITALS: BP 136/101
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
[2024-01-23 17:00] VITALS: BP 141/82; PULSE 80; RESP 17; TEMP 36.2; O2SAT 92
[2024-01-23] MEDS: Atorvastatin Calcium 80 MG Tablet PO (21:48)
[2024-01-23] MEDS: guaiFENesin Dm 10 ML UDC PO (21:48)
[2024-01-23 22:00] VITALS: PULSE 80; O2SAT 92
[2024-01-24] MEDS: Enoxaparin 40 MG/0.4 ML Syringe SC (05:32)
[2024-01-24] MEDS: Gabapentin 100 MG Capsule PO ×3 (05:55→21:10)
[2024-01-24] MEDS: Acetaminophen 500 MG Tablet 1000 MG PO ×3 (05:55→21:08)
[2024-01-24] MEDS: tiZANidine HCl 2 MG Tablet PO ×3 (05:55→21:08)
[2024-01-24] MEDS: oxyCODONE 5 MG Tablet PO ×4 (05:58→21:46)
[2024-01-24 06:00] VITALS: BP 170/84; PULSE 81; RESP 16; TEMP 36.7; O2SAT 93
[2024-01-24] MEDS: Pantoprazole Sodium 40 MG Tablet PO (08:20)
[2024-01-24] MEDS: Lidocaine 5% Patch 1 PATCH TOPICAL (08:20)
[2024-01-24] MEDS: Fluoxetine HCl 40 MG CAPSULE PO (08:20)
[2024-01-24] MEDS: Losartan Potassium 100 MG Tablet PO (08:21)
[2024-01-24] MEDS: guaiFENesin 600 MG Tablet PO ×2 (08:21→21:07)
[2024-01-24 13:45] VITALS: O2SAT 93
[2024-01-24 17:39] VITALS: BP 148/65; PULSE 80; RESP 16; TEMP 37.1; O2SAT 91
[2024-01-24] MEDS: Atorvastatin Calcium 80 MG Tablet PO (21:07)
[2024-01-24] MEDS: guaiFENesin Dm 10 ML UDC PO (21:08)
[2024-01-25] MEDS: Gabapentin 100 MG Capsule PO ×3 (06:21→21:34)
[2024-01-25] MEDS: tiZANidine HCl 2 MG Tablet PO ×3 (06:21→21:35)
[2024-01-25] MEDS: Acetaminophen 500 MG Tablet 1000 MG PO ×3 (06:21→21:35)
[2024-01-25] MEDS: oxyCODONE 5 MG Tablet PO ×3 (06:21→20:11)
[2024-01-25] MEDS: Enoxaparin 40 MG/0.4 ML Syringe SC (06:21)
[2024-01-25 06:27] VITALS: BP 161/87; PULSE 81; RESP 18; TEMP 36.7; O2SAT 94
[2024-01-25] MEDS: Losartan Potassium 100 MG Tablet PO (07:48)
[2024-01-25] MEDS: Fluoxetine HCl 40 MG CAPSULE PO (07:48)
[2024-01-25] MEDS: Lidocaine 5% Patch 1 PATCH TOPICAL (07:48)
[2024-01-25] MEDS: guaiFENesin 600 MG Tablet PO ×2 (07:48→21:35)
[2024-01-25] MEDS: Pantoprazole Sodium 40 MG Tablet PO (07:48)
[2024-01-25 18:00] VITALS: BP 143/81; PULSE 72; RESP 17; TEMP 36.7; O2SAT 94
[2024-01-25] MEDS: Atorvastatin Calcium 80 MG Tablet PO (21:34)
[2024-01-25] MEDS: guaiFENesin Dm 10 ML UDC PO (21:35)
[2024-01-26] MEDS: Enoxaparin 40 MG/0.4 ML Syringe SC (05:11)
[2024-01-26] MEDS: Gabapentin 100 MG Capsule PO ×2 (05:12→13:56)
[2024-01-26] MEDS: tiZANidine HCl 2 MG Tablet PO ×3 (05:12→20:42)
[2024-01-26] MEDS: Acetaminophen 500 MG Tablet 1000 MG PO ×3 (05:12→20:42)
[2024-01-26 05:15] VITALS: BP 163/99; PULSE 75; RESP 18; TEMP 36.8; O2SAT 92
[2024-01-26 05:42] LABS: Hematocrit 33.7 % (37-47); Hemoglobin 10.5 g/dL (12.0-15.0); Mean Corp Hgb Conc 31.2 g/dL (32-36); Mean Corpuscular Hgb 27.3 pg (27.0-32.0); Mean Corpuscular Volume 87.8 fL (81-99); Mean Platelet Vol. 10.1 fl (6.2-12.0); Platelet Count 253 K/mm3 (150-450); RBC Distribution Width CV 14.1 % (11.6-14.6); RBC Distribution Width SD 44.7 fl (35.1-43.9); Red Blood Count 3.84 M/mm3 (4.2-5.4); White Blood Count 9.2 K/mm3 (4.4-11.0)
[2024-01-26 06:04] VITALS: BP 164/81; PULSE 69
[2024-01-26 06:37] LABS: Anion Gap 5 (5-15); BUN 5 mg/dL (7-18); BUN/Creat Ratio 8.3 RATIO (10-20); Chloride 104 mmol/L (98-107); Cholesterol 125 mg/dL (200); EST Glomerular Filtration Rate 104 mL/min (>60); Est Glom Filt Rate - Afr Amer 126 mL/min (>60); Estimated Creatinine Clearance 74.18 ml/min; Glucose 102 mg/dL (74-106); High Density Lipoprotein 44 mg/dL; Potassium 3.6 mmol/L (3.5-5.1); Sodium Level 137 mmol/L (136-145); Triglycerides 100 mg/dL; Very Low Density Lipoprotein 20 mg/dL (5-40)
[2024-01-26] MEDS: oxyCODONE 5 MG Tablet PO ×2 (06:39→11:53)
[2024-01-26] MEDS: Pantoprazole Sodium 40 MG Tablet PO (09:25)
[2024-01-26] MEDS: Fluoxetine HCl 40 MG CAPSULE PO (09:25)
[2024-01-26] MEDS: guaiFENesin 600 MG Tablet PO ×2 (09:25→20:42)
[2024-01-26] MEDS: Lidocaine 5% Patch 1 PATCH TOPICAL (09:25)
[2024-01-26] MEDS: Losartan Potassium 100 MG Tablet PO (09:25)
[2024-01-26] MEDS: Ergocalciferol 1.25 MG (50, 000 UNIT) Capsule PO (09:25)
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
--- NOTE | 2024-01-26 13:02 | CASEMGMT ---
Addendum entered by Gris Koenig 01/26/24 13:24: Dr requesting sleep study at [place]. Nursing to contact sleep lab to schedule - goal for 02/01. Will await outcome. Original Note: Social Work IDT met with patient, then gdtr via conference call for Team meeting. Discussed patient's progress in PT/OT/ST/SN. Educated to Medicare approval of 12 days with DC 02/01. Confirmed pt is needing assistance with all ADLs and cannot care for pt at this level at home. Confirmed DC to SNF. Inquired if pt reviewed previously provided lists for a SNF preference. Pt is electing to remain in [facility] and requesting a referral to [facility]. SW requested additional SNF choices if [facility] cannot accept. Educated to Medicare SNF benefit. SW to schedule transport to SNF and complete 7000. SW sent to referral to [facility] via [facility]Port. Plan: DC to SNF, skilled 02/01 MELANY Genao
[2024-01-26] MEDS: predniSONE 20 MG Tablet 40 MG PO (16:50)
[2024-01-26 18:00] VITALS: BP 140/75; PULSE 76; RESP 16; TEMP 36.3; O2SAT 93
[2024-01-26] MEDS: Atorvastatin Calcium 80 MG Tablet PO (20:42)
[2024-01-26] MEDS: oxyCODONE 5 MG Tablet 10 MG PO (20:42)
[2024-01-26] MEDS: Gabapentin 300 MG Capsule PO (20:42)
[2024-01-26] MEDS: guaiFENesin Dm 10 ML UDC PO (20:42)
[2024-01-26] MEDS: Senna/Docusate Sodium 1 Tablet 2 TABLET PO (20:43)
[2024-01-27 05:13] VITALS: BMI 34.2
[2024-01-27 05:15] VITALS: BP 142/92; PULSE 74; RESP 15; TEMP 36.4; O2SAT 97
[2024-01-27] MEDS: oxyCODONE 5 MG Tablet 10 MG PO ×3 (05:19→21:32)
[2024-01-27] MEDS: Gabapentin 100 MG Capsule 200 MG PO ×2 (05:19→13:18)
[2024-01-27] MEDS: Acetaminophen 500 MG Tablet 1000 MG PO ×3 (05:20→21:32)
[2024-01-27] MEDS: tiZANidine HCl 2 MG Tablet PO ×3 (05:21→21:33)
[2024-01-27] MEDS: Enoxaparin 40 MG/0.4 ML Syringe SC (05:21)
[2024-01-27] MEDS: predniSONE 20 MG Tablet 10 MG PO (08:46)
[2024-01-27] MEDS: Pantoprazole Sodium 40 MG Tablet PO (08:46)
[2024-01-27] MEDS: Losartan Potassium 100 MG Tablet PO (08:46)
[2024-01-27] MEDS: guaiFENesin 600 MG Tablet PO ×2 (08:46→21:33)
[2024-01-27] MEDS: buPROPion (XL) 150 MG TABLET.XL PO (08:47)
[2024-01-27] MEDS: Senna/Docusate Sodium 1 Tablet 2 TABLET PO ×2 (08:48→21:33)
[2024-01-27] MEDS: Fluoxetine HCl 40 MG CAPSULE PO (08:48)
[2024-01-27] MEDS: oxyCODONE 5 MG Tablet PO (08:52)
[2024-01-27] MEDS: Lidocaine 5% Patch 1 PATCH TOPICAL (08:52)
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
[2024-01-27 12:31] VITALS: PULSE 82; RESP 16
[2024-01-27] MEDS: Ipratropium/Albuterol Sulfate 3 ML AMPUL.NEB INHALATION ×3 (12:31→20:55)
[2024-01-27 15:41] VITALS: PULSE 82; RESP 16
[2024-01-27 17:48] VITALS: BP 121/58; PULSE 96; RESP 17; TEMP 37; O2SAT 92
[2024-01-27 20:55] VITALS: PULSE 88; RESP 16
[2024-01-27] MEDS: Gabapentin 300 MG Capsule PO (21:32)
[2024-01-27] MEDS: guaiFENesin Dm 10 ML UDC PO (21:33)
[2024-01-27] MEDS: Atorvastatin Calcium 80 MG Tablet PO (21:34)
[2024-01-28 06:31] VITALS: BP 163/93; PULSE 74; RESP 16; TEMP 36.8; O2SAT 97
[2024-01-28] MEDS: Acetaminophen 500 MG Tablet 1000 MG PO ×3 (06:32→20:36)
[2024-01-28] MEDS: Enoxaparin 40 MG/0.4 ML Syringe SC (06:32)
[2024-01-28] MEDS: Gabapentin 100 MG Capsule 200 MG PO ×2 (06:33→13:58)
[2024-01-28] MEDS: oxyCODONE 5 MG Tablet 10 MG PO ×3 (06:33→20:36)
[2024-01-28] MEDS: tiZANidine HCl 2 MG Tablet PO ×3 (06:33→20:34)
[2024-01-28] MEDS: buPROPion (XL) 150 MG TABLET.XL PO (08:44)
[2024-01-28] MEDS: guaiFENesin 600 MG Tablet PO ×2 (08:45→20:37)
[2024-01-28] MEDS: Fluoxetine HCl 40 MG CAPSULE PO (08:45)
[2024-01-28] MEDS: Pantoprazole Sodium 40 MG Tablet PO (08:45)
[2024-01-28] MEDS: Lidocaine 5% Patch 1 PATCH TOPICAL (08:45)
[2024-01-28] MEDS: predniSONE 20 MG Tablet 10 MG PO (08:45)
[2024-01-28] MEDS: Losartan Potassium 100 MG Tablet PO (08:45)
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
[2024-01-28] MEDS: Ipratropium/Albuterol Sulfate 3 ML AMPUL.NEB INHALATION ×3 (11:04→20:00)
[2024-01-28 11:06] VITALS: PULSE 75; RESP 16
--- NOTE | 2024-01-28 11:29 | CASEMGMT ---
Addendum entered by Debbie Carr 01/28/24 15:58: Social Work SW spoke with pt regarding transportation to [facility]. Pt is agreeable to use [facility] and is understanding she will be billed. Transportation arranged for [facility] at 1pm on 02/01. Pt states she will notify her grand dgt of acceptance at [facility]. Discharge Date: 02/01 Discharge Disposition: [facility], skilled level of care J CARLOS Basurto Addendum entered by Debbie Carr 01/28/24 13:54: Social Work [facility] is able to accept pt with discharge on 02/01. Kaylen at [facility] notified that pt will not have a sleep study at time of dc from , but will need to have this scheduled when her skilled stay is over at [facility]. Kaylen understanding. SW met with pt and informed [facility] can accept and pt is agreeable to discharge plan. SW called pt granddgt Yamini, however, VM is full and unable to leave a message. Plan: [facility], skilled level of care on 02/01 J CARLOS Basurto Original Note: Social Work Phone call to [facility] to check on the status of the referral. María at [facility] states she did not receive that referral. SW did resend referral in [facility] and requested it be reviewed for 02/01 planned discharge. María agreeable and states she will call this worker back. J CARLOS Basurto
[2024-01-28 15:35] VITALS: PULSE 80; RESP 16
[2024-01-28 17:03] VITALS: BP 154/77; PULSE 89; RESP 18; TEMP 36.8; O2SAT 92
[2024-01-28 20:00] VITALS: PULSE 92; RESP 20
--- NOTE | 2024-01-28 20:15 | NURSING ---
RT on unit and question if pt can have an order for Albuterol aerosols every 2 hr PRN to utilize in between Duoneb aerosols if needed d/t wheezing. This nurse auscultated lungs post tx and after RT prior to speaking w/ Dr. Watts via phone. Informed Dr. Watts lung sounds w/ rhonchi to the rt base and expiratory wheezes noted to the rt upper lobe and rt base posterior. SpO2 96-97% on room air. No new orders received for Albuterol aerosols. Pt is to continue w/ current regimen of Duoneb every 4 hr PRN, Mucinex, Robitussin DM, IS, PEP, and fluids. Will continue to monitor.
[2024-01-28] MEDS: guaiFENesin Dm 10 ML UDC PO (20:33)
[2024-01-28] MEDS: Atorvastatin Calcium 80 MG Tablet PO (20:34)
[2024-01-28] MEDS: Senna/Docusate Sodium 1 Tablet 2 TABLET PO (20:35)
[2024-01-28] MEDS: Gabapentin 300 MG Capsule PO (20:35)
[2024-01-28 20:45] VITALS: O2SAT 97
[2024-01-28] MEDS: Polyethylene Glycol 3350 17 GM PACKET PO (20:45)
--- NOTE | 2024-01-28 20:45 | NURSING ---
Extensive resp education provided while in room. Pt thinks aerosols will prevent her from coughing. Explained mechanism of action of Duoneb and primary side effects. Noted fine tremors to hands, unsure of this is d/t UE weakness or aerosol tx. Educated on mechanism of action of Mucinex and Robitussin DM. Encouraged increased fluid intake, especially water, to thin mucous and ease expectoration. Instructed to use IS and PEP x10 every hr WA. May use a pillow or folded blanket to splint chest if experiencing any discomfort. Informed pt IS and PEP will promote cough and air exchange. Educated on the importance of maintaining the regimen of all prescribed therapies to prevent PNA and/or atelectasis. Education related to each component of resp regimen explained to pt more than once during interaction and all questions answered. Will need additional education and encouragement. Will continue to monitor.
[2024-01-29 06:00] VITALS: BP 163/91; PULSE 78; RESP 20; TEMP 37.1; O2SAT 97
--- NOTE | 2024-01-29 06:00 | NURSING ---
Pt requested to have her shower during OT scheduled at 0800 this am. OT notified on unit.
[2024-01-29] MEDS: Acetaminophen 500 MG Tablet 1000 MG PO ×3 (06:02→21:41)
[2024-01-29] MEDS: Gabapentin 100 MG Capsule 200 MG PO ×2 (06:02→13:10)
[2024-01-29] MEDS: oxyCODONE 5 MG Tablet 10 MG PO ×3 (06:03→21:42)
[2024-01-29] MEDS: Enoxaparin 40 MG/0.4 ML Syringe SC (06:03)
[2024-01-29] MEDS: tiZANidine HCl 2 MG Tablet PO ×3 (06:03→21:41)
[2024-01-29] MEDS: predniSONE 20 MG Tablet 10 MG PO (08:47)
[2024-01-29] MEDS: Losartan Potassium 100 MG Tablet PO (08:47)
[2024-01-29] MEDS: guaiFENesin 600 MG Tablet PO ×2 (08:47→21:41)
[2024-01-29] MEDS: Pantoprazole Sodium 40 MG Tablet PO (08:47)
[2024-01-29] MEDS: Lidocaine 5% Patch 1 PATCH TOPICAL (08:47)
[2024-01-29] MEDS: buPROPion (XL) 150 MG TABLET.XL PO (08:48)
[2024-01-29] MEDS: Fluoxetine HCl 40 MG CAPSULE PO (08:48)
[2024-01-29 08:56] VITALS: BP 143/74; PULSE 85
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
[2024-01-29 11:12] LABS: Bedside Glucose 91 mg/dL (74-106)
[2024-01-29 18:00] VITALS: BP 144/78; PULSE 81; RESP 20; TEMP 36.9; O2SAT 94
[2024-01-29] MEDS: Senna/Docusate Sodium 1 Tablet 2 TABLET PO (21:41)
[2024-01-29] MEDS: Gabapentin 300 MG Capsule PO (21:42)
[2024-01-29] MEDS: Ipratropium Bromide 0.06% NASAL SPRAY 2 SPRAY NASAL (21:42)
[2024-01-29] MEDS: Atorvastatin Calcium 80 MG Tablet PO (21:42)
[2024-01-29 21:53] VITALS: BP 179/97; PULSE 78
[2024-01-29] MEDS: Metoprolol(XL)Succ 25 MG Tablet PO (21:53)
[2024-01-29] MEDS: guaiFENesin/Codeine 5 ML UDC 10 ML PO (22:22)
[2024-01-29 23:00] VITALS: BP 178/96
[2024-01-29 23:40] VITALS: BP 147/82; PULSE 65
[2024-01-30 05:19] LABS: Hematocrit 32.2 % (37-47); Mean Corp Hgb Conc 31.1 g/dL (32-36); Mean Corpuscular Hgb 27.2 pg (27.0-32.0); Mean Corpuscular Volume 87.7 fL (81-99); Platelet Count 382 K/mm3 (150-450); RBC Distribution Width CV 14.6 % (11.6-14.6); RBC Distribution Width SD 46.3 fl (35.1-43.9); Red Blood Count 3.67 M/mm3 (4.2-5.4); White Blood Count 9.7 K/mm3 (4.4-11.0)
[2024-01-30 05:37] LABS: Magnesium 2.1 mg/dL (1.6-2.6)
[2024-01-30 06:00] VITALS: BP 160/88; PULSE 66; RESP 17; TEMP 36.3; O2SAT 94; BMI 33.3
[2024-01-30] MEDS: Enoxaparin 40 MG/0.4 ML Syringe SC (06:48)
[2024-01-30] MEDS: tiZANidine HCl 2 MG Tablet PO ×3 (06:49→21:31)
[2024-01-30] MEDS: Acetaminophen 500 MG Tablet 1000 MG PO ×3 (06:49→21:29)
[2024-01-30] MEDS: Gabapentin 100 MG Capsule 200 MG PO ×2 (06:49→14:51)
[2024-01-30] MEDS: oxyCODONE 5 MG Tablet 10 MG PO ×3 (06:50→21:30)
[2024-01-30] MEDS: Ipratropium Bromide 0.06% NASAL SPRAY 2 SPRAY NASAL ×2 (08:51→21:28)
[2024-01-30] MEDS: Senna/Docusate Sodium 1 Tablet 2 TABLET PO ×2 (08:51→21:30)
[2024-01-30] MEDS: Lidocaine 5% Patch 1 PATCH TOPICAL (08:52)
[2024-01-30] MEDS: Pantoprazole Sodium 40 MG Tablet PO (08:52)
[2024-01-30] MEDS: guaiFENesin 600 MG Tablet PO ×2 (08:52→21:28)
[2024-01-30] MEDS: buPROPion (XL) 150 MG TABLET.XL PO (08:52)
[2024-01-30] MEDS: predniSONE 20 MG Tablet 10 MG PO (08:52)
[2024-01-30] MEDS: Fluoxetine HCl 40 MG CAPSULE PO (08:52)
[2024-01-30] MEDS: Losartan Potassium 100 MG Tablet PO (08:52)
[2024-01-30 17:57] VITALS: BP 123/66; PULSE 71; RESP 16; TEMP 36.2; O2SAT 94
[2024-01-30] MEDS: Atorvastatin Calcium 80 MG Tablet PO (21:29)
[2024-01-30] MEDS: Gabapentin 300 MG Capsule PO (21:30)
[2024-01-30] MEDS: guaiFENesin/Codeine 5 ML UDC 10 ML PO (21:30)
[2024-01-31 06:00] VITALS: BP 157/63; PULSE 74; RESP 16; TEMP 36.9; O2SAT 96
[2024-01-31] MEDS: Enoxaparin 40 MG/0.4 ML Syringe SC (07:23)
[2024-01-31] MEDS: oxyCODONE 5 MG Tablet 10 MG PO ×3 (07:24→21:48)
[2024-01-31] MEDS: Acetaminophen 500 MG Tablet 1000 MG PO ×3 (07:24→21:49)
[2024-01-31] MEDS: tiZANidine HCl 2 MG Tablet PO ×3 (07:25→21:51)
[2024-01-31] MEDS: Gabapentin 100 MG Capsule 200 MG PO ×2 (07:25→13:33)
[2024-01-31] MEDS: Fluoxetine HCl 40 MG CAPSULE PO (09:29)
[2024-01-31] MEDS: Losartan Potassium 100 MG Tablet PO (09:29)
[2024-01-31] MEDS: Pantoprazole Sodium 40 MG Tablet PO (09:29)
[2024-01-31] MEDS: guaiFENesin 600 MG Tablet PO ×2 (09:29→21:48)
[2024-01-31] MEDS: buPROPion (XL) 150 MG TABLET.XL PO (09:29)
[2024-01-31] MEDS: Senna/Docusate Sodium 1 Tablet 2 TABLET PO ×2 (09:29→21:52)
[2024-01-31] MEDS: predniSONE 20 MG Tablet 10 MG PO (09:29)
[2024-01-31] MEDS: Lidocaine 5% Patch 1 PATCH TOPICAL (09:30)
[2024-01-31] MEDS: Ipratropium Bromide 0.06% NASAL SPRAY 2 SPRAY NASAL ×2 (09:30→21:42)
[2024-01-31 18:00] VITALS: BP 116/56; PULSE 81; RESP 18; TEMP 36.4; O2SAT 93
[2024-01-31] MEDS: Gabapentin 300 MG Capsule PO (21:48)
[2024-01-31] MEDS: Atorvastatin Calcium 80 MG Tablet PO (21:48)
[2024-01-31 21:52] VITALS: BP 157/77; PULSE 76
[2024-01-31] MEDS: Metoprolol(XL)Succ 25 MG Tablet PO (21:52)
[2024-01-31] MEDS: guaiFENesin/Codeine 5 ML UDC 10 ML PO (22:22)
[2024-02-01 06:00] VITALS: BP 153/71; PULSE 60; RESP 18; TEMP 36.3; O2SAT 97
[2024-02-01] MEDS: Enoxaparin 40 MG/0.4 ML Syringe SC (06:42)
[2024-02-01] MEDS: Gabapentin 100 MG Capsule 200 MG PO ×2 (06:42→14:54)
[2024-02-01] MEDS: oxyCODONE 5 MG Tablet 10 MG PO ×3 (06:43→21:18)
[2024-02-01] MEDS: Acetaminophen 500 MG Tablet 1000 MG PO ×3 (06:44→21:05)
[2024-02-01] MEDS: tiZANidine HCl 2 MG Tablet PO ×3 (06:44→21:05)
[2024-02-01] MEDS: Lidocaine 5% Patch 1 PATCH TOPICAL (09:25)
[2024-02-01] MEDS: buPROPion (XL) 150 MG TABLET.XL PO (09:25)
[2024-02-01] MEDS: predniSONE 20 MG Tablet 10 MG PO (09:25)
[2024-02-01] MEDS: Fluoxetine HCl 40 MG CAPSULE PO (09:25)
[2024-02-01] MEDS: guaiFENesin 600 MG Tablet PO ×2 (09:25→21:04)
[2024-02-01] MEDS: Ipratropium Bromide 0.06% NASAL SPRAY 2 SPRAY NASAL ×2 (09:25→21:04)
[2024-02-01] MEDS: Pantoprazole Sodium 40 MG Tablet PO (09:25)
[2024-02-01] MEDS: Senna/Docusate Sodium 1 Tablet 2 TABLET PO ×2 (09:25→21:04)
[2024-02-01 10:05] VITALS: BP 104/60
[2024-02-01] MEDS: Losartan Potassium 100 MG Tablet PO (10:54)
[2024-02-01 10:55] VITALS: BP 122/71
--- NOTE | 2024-02-01 14:04 | NURSING ---
Pt. self transferred from bathroom to bed, pt. educated on importance of using call light and waiting for assistance.
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
[2024-02-01 18:00] VITALS: BP 119/64; PULSE 68; RESP 18; TEMP 36.7; O2SAT 95
[2024-02-01] MEDS: Atorvastatin Calcium 80 MG Tablet PO (21:04)
[2024-02-01 21:05] VITALS: BP 150/77; PULSE 65
[2024-02-01] MEDS: Metoprolol(XL)Succ 25 MG Tablet PO (21:05)
[2024-02-01] MEDS: guaiFENesin/Codeine 5 ML UDC 10 ML PO (21:18)
[2024-02-01] MEDS: Gabapentin 300 MG Capsule PO (21:18)
[2024-02-02 06:00] VITALS: BP 149/81; PULSE 72; RESP 16; TEMP 37.2; O2SAT 95; BMI 33.5
[2024-02-02] MEDS: Gabapentin 100 MG Capsule 200 MG PO (06:33)
[2024-02-02] MEDS: Enoxaparin 40 MG/0.4 ML Syringe SC (06:33)
[2024-02-02] MEDS: Acetaminophen 500 MG Tablet 1000 MG PO (06:34)
[2024-02-02] MEDS: oxyCODONE 5 MG Tablet 10 MG PO (06:34)
[2024-02-02] MEDS: tiZANidine HCl 2 MG Tablet PO (06:34)
[2024-02-02] MEDS: Ipratropium Bromide 0.06% NASAL SPRAY 2 SPRAY NASAL (08:30)
[2024-02-02] MEDS: Ergocalciferol 1.25 MG (50, 000 UNIT) Capsule PO (08:31)
[2024-02-02] MEDS: Senna/Docusate Sodium 1 Tablet 2 TABLET PO (08:31)
[2024-02-02] MEDS: Pantoprazole Sodium 40 MG Tablet PO (08:31)
[2024-02-02] MEDS: guaiFENesin 600 MG Tablet PO (08:31)
[2024-02-02] MEDS: Losartan Potassium 100 MG Tablet PO (08:31)
[2024-02-02] MEDS: buPROPion (XL) 150 MG TABLET.XL PO (08:31)
[2024-02-02] MEDS: Fluoxetine HCl 40 MG CAPSULE PO (08:31)
[2024-02-02] MEDS: Lidocaine 5% Patch 1 PATCH TOPICAL (08:32)
[2024-02-02] MEDS: predniSONE 20 MG Tablet 10 MG PO (08:32)
--- NOTE | 2024-02-02 11:12 | CASEMGMT ---
Social Work 7000 completed. DC paperwork sent to [facility]. VALERIY spoke with María at [facility] to confirm admission and supervisor opening and picking time. 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
[2024-02-02 12:16] VITALS: BP 149/81; PULSE 72; RESP 16; TEMP 37.2; O2SAT 95
--- NOTE | 2024-02-02 12:18 | NURSING ---
discharge to [facility] via transport. Report called to Beata
== END 2024-02-02 11:30 | disposition skilled nursing facility (03) | DRG 552 ==
PROVIDERS: Admitting Provider Internal Medicine; PCP Family Medicine; Visit Provider Internal Medicine
DX: M54.42 Lumbago with sciatica, left side (principal); E87.1 Hypo-osmolality and hyponatremia; D64.9 Anemia, unspecified; E78.5 Hyperlipidemia, unspecified; E66.811 Obesity, class 1; T14.8XXD Other injury of unspecified body region, subsequent encounter; I70.0 Atherosclerosis of aorta; I10 Essential (primary) hypertension; F32.A Depression, unspecified; G93.0 Cerebral cysts; Z68.33 Body mass index [BMI] 33.0-33.9, adult; G47.33 Obstructive sleep apnea (adult) (pediatric); J31.0 Chronic rhinitis; F41.9 Anxiety disorder, unspecified; K21.9 Gastro-esophageal reflux disease without esophagitis; M53.3 Sacrococcygeal disorders, not elsewhere classified; G89.29 Other chronic pain; R09.02 Hypoxemia; Z79.52 Long term (current) use of systemic steroids; Z87.891 Personal history of nicotine dependence; M85.80 Other specified disorders of bone density and structure, unspecified site; Z72.820 Sleep deprivation; Z86.718 Personal history of other venous thrombosis and embolism; Z86.711 Personal history of pulmonary embolism; Z79.899 Other long term (current) drug therapy; V99.XXXD Unspecified transport accident, subsequent encounter
CPT/HCPCS: 36415; 80048; 80053; 80061; 82962; 83735; 84100; 85025; 85027; 92523; 94640; 94668; 94762; 97110; 97116; 97129; 97130; 97162; 97166; 97530; 97535; 97802; 99252; G0463

== ENCOUNTER → 2024-02-19 | Outpatient (CLI) | payer MEDICARE, BC, SELFPAY | END | disposition home or self-care (01) | PROVIDERS: PCP Family Medicine; Referring Provider Internal Medicine; Visit Provider Internal Medicine | DX: G47.33 Obstructive sleep apnea (adult) (pediatric) (principal) | CPT/HCPCS: 95811 ==

== ENCOUNTER → 2024-02-28 | Outpatient (CLI) | payer MEDICARE, BC, SELFPAY ==
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
== END | disposition home or self-care (01) ==
LOC: MRI 07:35
PROVIDERS: PCP Family Medicine; Referring Provider Family Medicine; Visit Provider Family Medicine
DX: G47.33 Obstructive sleep apnea (adult) (pediatric) (principal)
CPT/HCPCS: 72148

== ENCOUNTER 2024-03-16 11:39 | Day surgery (SDC) | payer MEDICARE, BC, SELFPAY ==
--- NOTE | 2024-03-15 07:31 | EKG12_ITS ---
Test Reason : PREOP Blood Pressure : */* mmHG Vent. Rate : 73 BPM Atrial Rate : 73 BPM P-R Int : 120 ms QRS Dur : 86 ms QT Int : 378 ms P-R-T Axes : 42 46 57 degrees QTcB Int : 416 ms Normal sinus rhythm Normal ECG Confirmed by ALEXIS DAUGHERTY, MARIYA ([id number]), acquisitions editor KATLYN PEDRO ([id number]) on 03/15/2024 8:24:31 AM Referred By: Oscar Beck Confirmed By: MARIYA ESPINOZA MD
[2024-03-15 08:33] LABS: Absolute Lymphocyte Count 1.61 X10^3/uL (0.83-4.51); Absolute Neutrophil Count 3.2 X10^3/uL (2.0-7.7); Basophil# 0.05 X10^3/uL; Basophil% 0.9 % (0-1); Eosinophil# 0.23 X10^3/uL; Eosinophils% 4.1 % (0-5); Lymphocyte # 1.61 X10^3/ul (0.83-4.51); Lymphocyte % 28.9 % (19-41); Mean Corp Hgb Conc 31.7 g/dL (32-36); Mean Corpuscular Hgb 27.4 pg (27.0-32.0); Mean Corpuscular Volume 86.5 fL (81-99); Mean Platelet Vol. 12.2 fl (6.2-12.0); Monocyte# 0.45 X10^3/uL; Monocyte% 8.1 % (0-10); NRBC Flagged by Analyzer 0 % (0-5); Neutrophil # 3.21 X10^3/uL (2.7-7.7); Neutrophil % 57.6 % (47-70); Platelet Count 204 K/mm3 (150-450); RBC Distribution Width CV 14.3 % (11.6-14.6); RBC Distribution Width SD 45.1 fl (35.1-43.9); Red Blood Count 4.74 M/mm3 (4.2-5.4); White Blood Count 5.6 K/mm3 (4.4-11.0)
[2024-03-15 10:55] LABS: Anion Gap 10 (5-15); BUN 9 mg/dL (7-18); BUN/Creat Ratio 10.2 RATIO (10-20); Calcium,Total 9.4 mg/dL (8.5-10.1); Chloride 103 mmol/L (98-107); Creatinine, Serum 0.88 mg/dL (0.55-1.02); EST Glomerular Filtration Rate 67 mL/min (>60); Est Glom Filt Rate - Afr Amer 81 mL/min (>60); Glucose 112 mg/dL (74-106); Potassium 3.7 mmol/L (3.5-5.1); Sodium Level 135 mmol/L (136-145)
[2024-03-15 11:02] LABS: HIV - WCH Non-Reactive (Nonreactive); Hepatitis B Surface Antibody Non-Reactive; Hepatitis C Antibody Non-Reactive (Nonreactive)
[2024-03-16] VITALS (9 sets, daily range): BP systolic 107–151; BP diastolic 61–90; PULSE 81–108; RESP 16; TEMP 36.4–36.6; O2SAT 97–100; BMI 31.3
[2024-03-16 05:07] LABS: Hepatitis A AB, Total Negative (Negative)
[2024-03-16] MEDS: 0.9% Normal Saline (1000mL) 1,000 ML 15 ML IV (12:26)
[2024-03-16] MEDS: Magnesium 1 GM over 15 mins IV (12:27)
[2024-03-16] MEDS: Acetaminophen 500 MG Tablet 1000 MG PO (12:27)
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
[2024-03-16 12:57] LABS: Bedside Glucose 85 mg/dL (74-106)
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
--- NOTE | 2024-03-16 13:30 | BONBX_PTH ---
PATIENT: ZANE TABARES LOC: [facility] – [place] U#:[id number] AGE/SX: 74/F ROOM: RE03/16/[address]: Dr. Oscar Beck MD : 1950 BED: DIS: 03/16/2024 SPEC #: [id number] RECD: 03/17/24 09:12 STATUS: JANIS MADI #: [id number] ROBBIE: 03/16/24 13:[address]: Oscar Beck DEPT: SURGICAL PATHOLOGY RECD BY: Eli Dumont ENTERED: 03/17/24 11:11 SP TYPE: Bone OTHR DR: Tesfaye Gr MD Tissues: Vertebra, NOS Procedures: Decalcification bone/plaque Surgery Specimen Level V HEADER OPERATION: ERAS, kyphoplasty L1, spine sanna PRE-OP DIAGNOSIS: L1 vertebral fracture, T12 compression fracture TISSUE SUBMITTED: L1 bone biopsy MICROSCOPIC DIAGNOSIS L1 bone, biopsy: Fragments of bone with callus formation. Negative for malignancy. See comment. SJ.mr 03/18/2024 COMMENT Clinical correlation and appropriate follow up are necessary. MICROSCOPIC DESCRIPTION Slides are reviewed. GROSS DESCRIPTION Received in fixative is one container labeled with the patient's name and designated L1 bone biopsy. The specimen consists of two elongated pieces of bone measuring 0.5 and 0.7cm in length and 0.1cm in diameter. The entire specimen is submitted in one cassette after decalcification. 03/17/2024 TC:5 CPT:74384,80879
--- NOTE | 2024-03-16 13:30 | RAD_ITS ---
PROCEDURE: Fluoroscopy less than 1 hour REASON FOR EXAM: Kyphoplasty TECHNIQUE: 2 fluoroscopic images were submitted. Fluoroscopy time was 93.2 seconds. Peak skin radiation dose was 56 mGy. COMPARISON: None. FINDINGS: See impression RAD/Lumbar Spine 2 or 3 Views IMPRESSION: Kyphoplasty cement placed within the L1 vertebral body compression fracture def ormity. See operative report for further details. Reading Location: [facility]
[2024-03-16] MEDS: Clindamycin 900 MG/50 ML BAG 75 MG IV (13:42)
[2024-03-16] MEDS: Bupiv/Epi 0.25% 30 ML Vial (14:12)
[2024-03-16] MEDS: Lidocaine 1% (30 ml sdv) 30 ML Vial (14:12)
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
--- NOTE | 2024-03-16 15:24 | PCM.POST.ANE ---
Anesthesia: Postop Eval I Current Vital Signs Temperature: 97.6 F Pulse Rate: 94 Blood Pressure: 151/90 Respiratory Rate: 16 Pulse Ox: 100 Oxygen Delivery Method: Simple Mask Oxygen Flow Rate (L/min): 6 Assessment Airway patent: Yes Spontaneous unlabored respirations: Yes Mental status: Awake and Calm nausea: No Vomiting: No Anesthesia Complication: No Fluid Hydration Crystalloid volume administer (ml): 1,300 Total IV fluid infused: 1,300 Progress Note Anesthesia document: Postop Eval 1 completed: No
--- NOTE | 2024-03-16 15:30 | POSTOPAN2_ITS ---
Anesthesia Postop Eval I Sum Postop Eval Completion status Anesthesia document: Postop Eval 1 completed: No Anesthesia Postop Eval I Summary Anesthesia Postop Eval I Summary: Anesthesia Postop Eval I: Assessment Summary Airway patent Yes 03/16/24 15:25 FLORAL ASSOCIATE.SKOBY Spontaneous unlabored Yes 03/16/24 15:25 FLORAL ASSOCIATE.[place] respirations Mental status Awake,Calm 03/16/24 15:25 FLORAL ASSOCIATE.SKOBY nausea No 03/16/24 15:25 FLORAL ASSOCIATE.SKOBY Vomiting No 03/16/24 15:25 FLORAL ASSOCIATE.SKOBY Anesthesia Postop Eval I: Fluid Summary Crystalloid volume administer 1,300 03/16/24 15:25 FLORAL ASSOCIATE.SKOBY (ml) Colloids volume administered ( ml) Blood Product volume administered (ml) Total IV fluid infused 1,300 03/16/24 15:25 FLORAL ASSOCIATE.ADENIKEOBMason Anesthesia Postop Eval I: Summary Notes Anesthesia Complication No 03/16/24 15:25 FLORAL ASSOCIATE.ADENIKEOBMason Anesthesia Complication Comment: Post-operative progress note Anesthesia: Postop Eval II Evaluation Mental status: Awake and Calm Pain Level: 0 nausea: No Vomiting: No
--- NOTE | 2024-03-16 15:30 | PCM.POSTANE2 ---
Anesthesia Postop Eval I Sum Postop Eval Completion status Anesthesia document: Postop Eval 1 completed: No Anesthesia Postop Eval I Summary Anesthesia Postop Eval I Summary: Anesthesia Postop Eval I: Assessment Summary Airway patent Yes 03/16/24 15:25 OPTIONS [email or web address] Spontaneous unlabored Yes 03/16/24 15:25 OPTIONS [email or web address].[place] respirations Mental status Awake,Calm 03/16/24 15:25 OPTIONS [email or web address] nausea No 03/16/24 15:25 OPTIONS [email or web address].SKOBY Vomiting No 03/16/24 15:25 OPTIONS [email or web address].[email or web address] Anesthesia Postop Eval I: Fluid Summary Crystalloid volume administer 1,300 03/16/24 15:25 OPTIONS [email or web address] (ml) Colloids volume administered ( ml) Blood Product volume administered (ml) Total IV fluid infused 1,300 03/16/24 15:25 OPTIONS [email or web address].ADENIKEOBMason Anesthesia Postop Eval I: Summary Notes Anesthesia Complication No 03/16/24 15:25 OPTIONS [email or web address].ADENIKEOBMason Anesthesia Complication Comment: Post-operative progress note Anesthesia: Postop Eval II Evaluation Mental status: Awake and Calm Pain Level: 0 nausea: No Vomiting: No
== END 2024-03-16 16:51 | disposition home or self-care (01) ==
LOC: SDC 11:41 → AC 11:41
PROVIDERS: Anesthesiology; PCP Family Medicine; Referring Provider Orthopaedic Surgery Orthopaedic Surgery of the Spine; Visit Provider Orthopaedic Surgery Orthopaedic Surgery of the Spine
PROC: (CPT 22514; principal; 2024-03-16 13:15)
DX: S32.010A Wedge compression fracture of first lumbar vertebra, initial encounter for closed fracture (principal); I10 Essential (primary) hypertension; E78.5 Hyperlipidemia, unspecified; K21.9 Gastro-esophageal reflux disease without esophagitis; S22.080S Wedge compression fracture of T11-T12 vertebra, sequela; V99.XXXS Unspecified transport accident, sequela; Z79.899 Other long term (current) drug therapy; Z87.891 Personal history of nicotine dependence; V89.2XXA Person injured in unspecified motor-vehicle accident, traffic, initial encounter
CPT/HCPCS: 22514; 72100; 76000; 80048; 82962; 83735; 85025; 86703; 86706; 86708; 86803; 86850; 86900; 86901; 87081; 88307; 88311; 93005; J2405; J3475

== ENCOUNTER 2024-06-10 14:30 | Outpatient (RCR) | payer MEDICARE, BC, SELFPAY ==
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
--- NOTE | 2024-05-04 14:06 | HP.PTREVAL ---
Re-Evaluation Intro: Dr. Oscar Beck MD, It has been my pleasure to treat ZANE TABARES over the last 11 visits for L1 VERTEBRAL FX. Please see the progress note below for an update on the physical therapy plan of care! Subjective Subjective: Pt. reports being ~50% better overall over. Pt. report having difficulty with getting up and down. She also having issues with pushing up. Pt. reports increased pain standing for periods longer than 5' or so. Pt. reports no N/T. Pt. reports overall doing much better, but is still conserned about getting up and down out of a chair. Objective Objective/Function: Pt. reports being able to walk for about 5 minutes prior to have some symptoms. She did walk around the store, but had to sit down 3 separate times due to increase in pain. TU.9 sec no AD stairs: pt. has marked increased pain during L stance phase of pattern, uses 2 HR to complete sit to stand; Pt. reports increased L knee pain with attempts. She heavily relies on her RLE to complete. She was able to complete 6 sit to stands in 18sec, with 1 UE assistance, but had to stop prior to 30sec secondary to L knee pain. I adjusted her TUG goal and sit to stand goals to increase her improved mobility. Plan Plan Plan: Pt. to complete aquatic exercises. Progress from mat exercises to functional core and BLE in aquatic setting. If improving able to progress to land exercises. Pt. does have increased L knee pain limiting some of her mobility with sit to stands and walking. Balance/Gait/Functional tests Balance/Special Test Scores Oswestry Low Back Score: 32 Goals Goals Goal 1:: DECREASE C/O BACK PAIN BY AT LEAST 50% TO EASE ADL'S. Goal Time Frame: 4-6 Weeks Goal Progress: Progressing Goal 2:: IMPROVE BENDING, PERSONAL CARE, LIFTING, WALKING, SITTING, STANDING, SOCIAL LIFE, TRAVEL AND HOMEMAKING FUNCTION WITH AT LEAST 8 POINT IMPROVEMENT ON BACK OSWESTRY QUESTIONNAIRE. Goal Time Frame: 4-6 Weeks Goal Progress: Progressing Goal 3:: PATIENT WILL COMPLETE 12 STANDS IN 30 SECS WITH ONE UE ASSIST TO DEMONSTRATE IMPROVED LE FUNCTIONAL STRENGTH. Goal Time Frame: 6-8 Weeks Goal Progress: Progressing Goal 4:: PATIENT WILL COMPLETE TUG IN < 10 SECS WITHOUT AD OR C/O INCREASED PAIN WITH NORMALIZED GAIT TO DEMONSTRATE IMPROVED GAIT QUALITY. Goal Time Frame: 6-8 Weeks Goal Progress: Goal Met Goal 5:: PATIENT WILL BE ABLE TO WALK FOR AT LEAST 15 MINUTES WITHOUT AD AND WITHOUT AGGREVATION OF SYMPTOMS IN ORDER TO IMPROVE PERFORMANCE OF ADL'S AND IADL'S TOWARD PLOF. Goal Time Frame: 8-12 Weeks Goal Progress: Progressing Goal 6:: PATIENT WILL BE ABLE TO NEGOTIATE STEPS WITH 1 HR WITH RECIPROCAL PATTERN WITHOUT LIMITATIONS Goal Time Frame: 8-12 Weeks Goal Progress: Progressing Anticipated Interventions Anticipated Interventions Patient/Client Instruction: Educate patient on: Condition, Plan of Care and Risk Factors For the Purpose of:: To improve self management Therapeutic Exercise to Include: Strength training, Body mechanics, Postural training, Flexibilty training, Gait and locomotor training, Neuromotor development, In an aquatic setting and Dynamic Lumbar Stabilization For the Purpose of:: To decrease pain, To decrease swelling/inflammation, To increase ROM, To improve muscle performance and motor function, To improve ability to perform ADL's, To increase tolerance to activity/condition/position, To improve ability of physical actions for home/community/work/leisure, To improve gait and locomotor functions and To improve self management Thermo therapy (hot pack): Yes For the Purpose of:: To decrease pain and To improve nutrient delivery to tissue Re-Evaluation Ending Re-evaluation ending: Please do not hesitate to contact me at [phone] by phone or if you have questions or concerns regarding this new plan of care! Sincerely, Kenan Kern DPT
== END 2024-06-10 19:00 | disposition home or self-care (01) ==
LOC: PT 14:30
PROVIDERS: PCP Family Medicine; Referring Provider Orthopaedic Surgery Orthopaedic Surgery of the Spine; Visit Provider Orthopaedic Surgery Orthopaedic Surgery of the Spine
DX: S32.019D Unspecified fracture of first lumbar vertebra, subsequent encounter for fracture with routine healing (principal)
CPT/HCPCS: 97110; 97113; 97162; 97530